=== PATIENT | male | born 1940 | race Caucasian/White ===

== ENCOUNTER 2016-06-24 09:39 | Inpatient (IN) ==
[2016-06-24] MEDS ORDERED: Regadenoson 0.4 MG/5 ML SYRINGE IVP ONE (10:22)
--- NOTE | 2016-06-24 12:52 | Nuclear Medicine Stress Report ---
Regadenoson Nuclear 2 Name: Sam Fair Date of Study: 06/24/2016 Date: 1940 Ht: 69.0 in Medical Record#: [id number] Age: 75 Wt: 145.0 lb Gender: Male Order #: [id number] Location: [facility] OP Room: Supervising Provider: Martha Herrera CNP Reading Physician: Blanca Gonzalez DO Ordering Physician: Darlin Lynch MD, [facility] Primary Care Physician: Mahendra Albert DO Stress Technologist: Hung Dumont CRT Stockbroking Dealer: Dashawn Tello Indications: Chest Pain Impression: Perfusion imaging was positive for infarct with moderate rachelle-infarct ischemia (see Findings below). Pharmacologic ECG was positive for ischemia associated with patient complaints of chest pain. Normal hemodynamic response to pharmacologic stress. No arrhythmias noted with stress. Gated EF = 38%. Abnormal wall motion. Borderline visual evidence of TID. Findings communicated to ordering physician. History: Hypertension Hypercholesteremia Stress Test Summary: Stress Test Type: Pharmacologic Baseline Information: Initial Heart Rate: 68 Blood Pressure: 138/82 Stress Information: Test Terminated Due to (primary): As per protocol Maximum Blood Pressure: 150/80 Maximum Heart Rate: 96 Percent Maximum Heart Rate Achieved: 65 Double Product: [id number] METS Reached: 1 Symptoms: Chest pain Nuclear Summary: SPECT myocardial perfusion imaging using Tc99m Sestamibi given intravenously was performed at rest and following cardiac stress testing. The resting images were obtained following initial dose of 10.2 mCi. Following stress an additional dose of 35.8 mCi was given at peak exercise or 30 seconds post regadenoson infusion. Medication Given: Time Medication Dose Units Route Findings: Stress Note * Resting ECG demonstrated normal sinus rhythm with nonspecific ST-T abnormalities. * No arrhythmias were noted during stress. * Patient had chest pain/pressure during stress. * At peak stress, there are 1-1.5mm of ST depression in II, 1mm ST depression in aVF, III, V4-[address] elevation in aVR only. Study Quality * Study quality was fair. Gated EF % * Gated EF = 38%. Abnormal wall motion and thickening in the anterolateral wall. Left Ventricle * The left ventricle is not dilated. TID * There is borderline visual transient ischemic dilatation. Lung Uptake * There is no evidence of increase lung uptake. PERFUSION * Resting perfusion demonstrates a medium sized mild to moderate intensity perfusion defect involving the basal to mid inferolateral and anterolateral tucker. * During stress, there is worsening of perfusion in these areas when compared to resting images also to include distal anterolateral and inferolateral wall and apex. * Findings represent infarct with moderate rachelle-infarct ischemia. Updated by Blanca Gonzalez on 06/24/2016 12:40:39 PM electronically signed on 06/24/2016 12:46:06 PM with status of Final
[2016-06-24] MEDS ORDERED: 0.9 % Sodium Chloride 1,000 ML ONE ×2 (14:15→15:45)
[2016-06-24] MEDS ORDERED: Nitroglycerin 1,000 MCG/10 ML VIAL IV ONE (14:15)
[2016-06-24] MEDS ORDERED: Heparin 1,000 UNITS/500 mL NS 500 ML ONE (14:15)
[2016-06-24] MEDS ORDERED: *HR* Heparin 10,000 UNIT/10 ML VIAL ONE (14:15)
--- NOTE | 2016-06-24 14:41 | History & Physical Report ---
Date of Encounter: 06/24/16 Time of Encounter: 13:30 24 Hour HP Update - Instructions Instructions: If the History and Physical is less than 30 days old and was completed prior to A.M. admission and or procedure and has NOT been updated on calendar day of procedure please complete this update prior to performing procedure. - Update Patient reports changes in Medical Condition: No Changes in examination, assessment, or condition: Yes Changes in Medication: No Preop tests/diagnostics Reviewed: Yes Additions to current History and Physical: Abnormal stress test
[2016-06-24] MEDS ORDERED: Naloxone 0.4 MG/ML INJ IVP PRN (14:47)
[2016-06-24 15:05] LABS: Basophils % 0.4 %; Eosinophils # 0.1 K/mcL (0.0-0.6); Eosinophils % 0.9 %; Hematocrit 38.8 % (37.5-50.1); Hemoglobin 12.9 g/dL (12.9-16.9); Immature Granulocytes % 0.4 % (0-4); Lymphocytes # 0.7 K/mcL (0.6-4.6); Lymphocytes % 11.8 %; Mean Corpuscular HGB Conc 33.2 g/dL (31.6-35.5); Mean Corpuscular Hemoglobin 31.9 pg (28.0-33.3); Mean Platelet Volume 9.5 fL (9.4-12.4); Monocytes # 0.4 K/mcL (0.0-1.3); Monocytes % 6.9 %; Neutrophils # 4.4 K/mcL (1.6-8.9); Platelet Count 170 K/mcL (140-400); Red Blood Count 4.04 M/mcL (4.19-5.50); Red Cell Distribution Width 13.5 % (11.5-14.5); Segmented Neutrophils % 79.6 %
[2016-06-24 15:17] LABS: BUN/Creatinine Ratio 33 (6-26); Blood Urea Nitrogen 33 mg/dL (8-26); Calcium 10.1 mg/dL (8.6-10.8); Carbon Dioxide 23 mEq/L (19-29); Chloride 106 mEq/L (98-109); Glucose 98 mg/dL (70-99); Osmolality,Calculated 295 (280-300); Potassium 4.3 mEq/L (3.5-4.5); Sodium 139 mEq/L (136-145); eGFR For African Americans > 60 (> 60); eGFR For Non-African Americans > 60 (> 60)
[2016-06-24 15:25] LABS: INR 1.1; Prothrombin Time 12.1 Seconds (9.4-12.1)
--- NOTE | 2016-06-24 15:29 | Pre-Sedation Evaluation ---
Pre-sedation evaluation - Pre-sedation checklist Date of procedure: 06/24/16 Procedure: C H&P (including ROS) documented in medical record: Yes Previous reaction to sedatives/anesthetics: No Dietary Status: NPO after Midnight Airway Assessment: Patient can open mouth completely, TMJ function normal, Micrognathia (under-bite, receding chin) absent, Neck with adequate range of motion Dentition: No loose teeth or bridges Possible difficult airway: No ASA Classification *see protocol: CLASS II-Mild systemic disease Plan of Care: Pt appropriate candidate for procedure/moderate/conscious sedation , Risks/benefits of procedure/sedation discussed w/ patient/family
[2016-06-24] MEDS ORDERED: *HR* FentaNYL (PF) 100 MCG/2 ML VIAL ONE (15:30)
[2016-06-24] MEDS ORDERED: *HR* Bivalirudin 250 MG VIAL IVC ONE (15:31)
[2016-06-24] MEDS ORDERED: *HR* Midazolam HCl 2 MG/2 ML VIAL ONE (15:32)
[2016-06-24] MEDS ORDERED: Nitroglycerin 0.4 MG TAB.SUBL SL PRN (16:38)
--- NOTE | 2016-06-24 17:20 | Cardiothoracic Consult Note ---
Date of Encounter: 06/24/16 Time of Encounter: 17:16 Assessment and Plan (1) Prostate cancer Current Visit: No Status: Acute The assessment and plan as outlined above was discussed with the patient and/or family members who expressed understanding and agreement. All questions were answered. 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 He is a candidate for coronary artery bypass surgery. We will obtain an echocardiogram to assess his valvular function. We will check a CT scan of his chest and abdomen to evaluate his aorta for aneurysms. We will check a carotid duplex to assess his risk of stroke. At this point the patient has no questions. We will tentatively schedule his surgery for Wednesday. - History of Present Illness History of present illness: Mr. Fair is a 75 year old male History of present illness. Patient is a 85-year-old gentleman who presented with a positive stress test. Ejection fraction on the stress test was 38%. He does state that he has been having some indigestion and heartburn. Heart catheterization done today reveals triple vessel disease. The right coronary artery is small and nondominant. The LAD has a 90% proximal lesion with some distal disease and is bypassable. The diagonal branch has diffuse distal disease and is too small for bypass distal to this. The circumflex has a 99% lesion and a good obtuse marginal branch. The distal circumflex may or may not be bypassable. Past medical history. The patient has a history of hypertension and hypercholesterolemia. No history of diabetes. He is status post bilateral inguinal hernia repair. He also has a history of prostate cancer and has undergone radiation and hormone therapy. Past medical history also includes abdominal aortic aneurysm which was last measured at 4.4 cm. He does have a long history of a heart murmur but no history of congestive heart failure. Social history. He lives with his [address] from [place]. 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 He continues to smoke one half pack of cigarettes per day AGAINST MEDICAL ADVICE. He states that he does not use oxygen and does not have dyspnea on exertion. Does not drink alcohol. Family history is positive for coronary artery disease, including a father who of heart failure. Review of systems is negative for stroke or TIA. Negative for saphenous vein varicosities or strippings. Past Med Surg Social Fam HX - Past Medical History Medical history: cancer, GERD, hyperlipidemia, hypertension Psychiatric history: no psych history - Social History Smoking Status: Current every day smoker Smokeless Tobacco Status: No Alcohol use: none Drug use: none Medications and Allergies Atorvastatin [Lipitor] 20 mg PO DAILY 02/14/15 [History] Lisinopril [Zestril] 40 mg PO DAILY 02/14/15 [History] Oxaprozin [Daypro] 600 mg PO BID PRN 02/14/15 [History] Solifenacin Succinate [Vesicare] 5 mg PO HS 11/21/15 [History] Tamsulosin [Flomax] 0.4 mg PO BID 11/21/15 [History] Diltiazem CD (24hr) [Cardizem CD] 240 mg PO DAILY 11/22/15 [History] Aspirin [Lo-Dose Aspirin EC] 1 tab PO DAILY 01/27/16 [History] Multivit-Min/FA/Lycopen/Lutein [Men 50 Plus Multivitamin Tab] 1 tab PO DAILY [History] Oxybutynin [Ditropan] 5 mg PO DAILY PRN #30 tablet 01/27/16 [Rx] Leuprolide Acetate [Lupron Depot] 22.5 mg IM ONCE #1 kit 04/28/16 [Rx] Allergies No Known Allergies Allergy (Verified 08/14/15 09:08) All Systems Review: A 10-system review of systems was performed and is negative for pertinent findings except as documented above in the HPI. Physical Examination Pupils are equal, round and reactive to light and accommodation. No oral lesions. Neck is supple. Trachea in the midline. No carotid bruits. Lungs are clear to percussion and auscultation. Heart is in a regular rate and rhythm. There is a 2/6 systolic murmur and a 1/6 diastolic murmur. Abdomen is benign. He is status post bilateral herniorrhaphy. No tenderness, rebound or guarding. No hepatosplenomegaly or masses. Extremities without edema. 1+ pulses. No saphenous vein varicosities or strippings. Cranial nerves, motor and sensory intact. He is awake, alert and oriented 3. Results 06/24/16 14:53 06/24/16 14:53 Lab Results, Last 24 hours 06/24/16 06/24/16 06/24/16 14:53 14:53 14:53 WBC 5.5 Hgb 12.9 Hct 38.8 Plt Count 170 INR 1.1 Sodium 139 Potassium 4.3 Chloride 106 Carbon Dioxide 23 BUN 33 H Creatinine 1.01 Glucose 98 Calcium 10.1 Consult Discharge Plan - Plan Referrals: Mahendra Albert DO [Primary Care Provider] -
--- NOTE | 2016-06-24 17:27 | Invasive Diagnostic Lab Proc ---
Name: Sam Fair Date of Study: 06/24/2016 Date: 1940 Ht: 66.0in Medical Record#: [id number] Age: 75 Wt: 145.28lb Gender: Male BSA: 1.75 Order #: [id number] BMI: 23.46 Physicians Procedure Physician: Darlin Lynch MD, [facility] Referring MD: Referring MD: Staff Name Position Time In Sites, [facility] RT (R) Monitor 03:47 PM Saima Perez RT Scrub 03:47 PM Zaida Wheat RN Box Person 03:47 PM Joseline Olvera RN Box Person 03:47 PM Indications Indication Abnormal Test - Stress Procedures Performed Procedure L HRT ARTERY/VENTRICLE ANGIO Pre-Procedure Checklist Informed consent is complete signed and on chart. H\\T\\P is on chart. ID band is on and ID verified with patient. Patient NPO for procedure The procedure was described for the patient and questions were answered. Blood Pressure: 167/96 ECG is on chart. Rhythm: NSR Plan of Care Patient will tolerate the procedure without complications. Adequate level of comfort will be maintained. Hemodynamics will remain stable Patient will recover from procedure without complications. Respiratory function will be maintained. Cardiac rhythm will remain stable. Patient temperature will be maintained. Patient and/or family have verbalized understanding of the procedure. Patient Education Chief Complaint/Reason for Test: Cardiac Cath Developmental Category: Geriatric (65+ years) Developmentally Appropriate for Age: Yes Learning Barriers: None Education Needs: Procedure Education Method: Verbal Information Taught: Cardiac Cath Educational Evaluation: Able to repeat information Intravenous Access Time IV Size Location DC'd Fluid/Drip Rate Units RN 03:23 PM 22g 1" Patent On Arrival Rt Arm 0.9NaCl 25 ml/hr Joseline Olvera RN Allergies No Known Allergies Vital Signs Time BP (mmHg) HR (bpm) O2 Sat. RR (bpm) LOC 03:48 PM / % 5 = Fully awake and oriented or at pre-proc level 03:48 PM / % 4 = Oriented but drowsy 03:43 PM 167 / 96 65 100 % 16 03:47 PM 160 / 97 71 100 % 7 03:52 PM 159 / 89 66 99 % 0 03:57 PM 157 / 94 73 99 % 14 04:02 PM 149 / 89 73 99 % 19 04:07 PM 154 / 88 65 99 % 10 04:03 PM / % 5 = Fully awake and oriented or at pre-proc level 04:30 PM 178 / 97 64 96 % 25 4 = Oriented but drowsy 04:45 PM 166 / 108 64 95 % 17 5 = Fully awake and oriented or at pre-proc level 05:00 PM 168 / 107 61 96 % 23 5 = Fully awake and oriented or at pre-proc level 05:15 PM 176 / 95 65 98 % 19 5 = Fully awake and oriented or at pre-proc level Procedural Medications Time Medication Dose Units Method Given By 03:47 PM Oxygen 2 L/min nasal cannula Zaida Wheat RN 03:47 PM Versed 2 mg Intravenous Zaida Wheat RN 03:47 PM Fentanyl 50 mcg Intravenous Zaida Wheat RN 03:54 PM Lidocaine 2% 12 ml Subcutaneous Darlin Lynch MD, [facility] ASA Classification: CLASS II- Mild systemic disease (i.e. well-controlled diabetes, hypertension, asthma, cigarette smoking) Zach Score Preprocedure Postprocedure Activity 2- Moves 4 extremities sustained head lift Activity 2- Moves 4 extremities sustained head lift Circulation 2- SBP +/= 20 points of pre-anesthetic level Circulation 2- SBP +/= 20 points of pre-anesthetic level Consciousness 2- Awake and alert oriented x 3 Consciousness 2- Awake and alert oriented x 3 O2 Saturation 2- Able to maintain O2 satruation of 92% on room air O2 Saturation 2- Able to maintain O2 satruation of 92% on room air Respiratory 2- Able to deep breathe and cough well Respiratory 2- Able to deep breathe and cough well Total Score 10 Total Score 10 Contrast Agent: Isovue Diagnostic Contrast: 85 ml Total Contrast: 85 ml Fluoro Dose: 353 mGy Procedure Log Time Note Enter By 03:42 PM CathStat 03:42 PM Vitals capture started with the following parameters, Patient=Adult, Interval=5 min, Initial Ddywstfn=968 mmHg, Deflation Rate=5 mmHg, Cuff placed on Left Arm 03:42 PM Recorded ECG: HR=62 Condition=Condition 1 03:43 PM HR=65 bpm, ZKIB=016/96 mmhg, TjS8=247.0 %, Resp=16 B/min 03:45 PM Recorded ECG: HR=64 Condition=Condition 1 03:46 PM Pt arrived to slab off mill tender 2 at 15:46 tsites 03:46 PM Patient charges- Angio tray pack, Navilyst 3mm J, Pulse Oximetry and ACIST tubing and transducer tsites 03:46 PM Case Delayed No tsites 03:46 PM Physician arrived 15:46 tsites 03:46 PM Meet and greet completed tsites 03:46 PM Sign in performed according to hospital policy. tsites 03:46 PM Procedure start 15:46 tsites 03:47 PM Ayesha Valdivia RT (R) Position: Monitor Time in: 15:47 tsites 03:47 PM Saima Perez RT Position: Scrub Time in: 15:47 tsites 03:47 PM Zaida Wheat RN Position: Box Person Time in: 15:47 tsites 03:47 PM Joseline Olvera RN Position: Box Person Time in: 15:47 tsites 03:47 PM HR=71 bpm, CVDV=638/97 mmhg, YrO8=692.0 %, Resp=7 B/min 03:47 PM Time: 15:47 Oxygen on at 2 L/min per nasal cannula by Zaida Wheat RN tsites 03:47 PM Time: 15:47 Versed 2 mg Intravenous Given by Zaida Wheat RN tsites 03:48 PM Time: 15:47 Fentanyl 50 mcg Intravenous Given by Zaida Wheat RN tsites 03:48 PM Time: 15:48 Patient comfortable and pain free: Yes tsites 03:48 PM Time: 15:48LOC: 5 = Fully awake and oriented or at pre-proc level tsites 03:48 PM Clinical Presentation: Unstable angina tsites 03:52 PM Pressure channel 1 zero failed. 03:52 PM Pressure channel 1 zeroed. 03:52 PM HR=66 bpm, IOMH=724/89 mmhg, SpO2=99.0 %, Resp=0 B/min 03:54 PM Time out performed according to hospital policy tsites 03:55 PM Time: 15:54 12 ml Lidocaine 2% to right groin Subcutaneous Given by Darlin Lynch MD, [facility] tsites 03:56 PM Access obtained by percutaneous puncture. 5Fr 10cm Terumo [place] sheath placed in right Femoral artery. [id number] tsites 03:57 PM 5Fr FR 4 catheter inserted over the wire [employer] tsites 03:57 PM 0.035 145cm Navilyst 3mmJ wire [id number] tsites 03:57 PM HR=73 bpm, LZEE=049/94 mmhg, SpO2=99.0 %, Resp=14 B/min 03:59 PM RCA angiography performed in multiple views. tsites 03:59 PM Recorded Pressure: Ao, HR=67, Condition=Condition 1 (Aorta) Ao 152/97/120 03:59 PM 0.035 260cm Navilyst 3mmJ wire [id number] tsites 04:00 PM Catheter removed tsites 04:00 PM 5Fr FL 4 catheter inserted over the wire [employer] tsites 04:01 PM wire reinserted catheter removed tsites 04:02 PM 5Fr FL5 catheter inserted over the wire [id number] tsites 04:02 PM HR=73 bpm, OBTI=863/89 mmhg, SpO2=99 %, Resp=19 B/min 04:03 PM Time: 15:48LOC: 4 = Oriented but drowsy tsites 04:03 PM Time: 15:48 Patient comfortable and pain free: Yes tsites 04:03 PM LCA angiography performed in multiple views. tsites 04:03 PM Recorded Pressure: Ao, HR=68, Condition=Condition 1 (Aorta) Ao 136/82/103 04:05 PM wire [facility]ed [facility] 04:06 PM 5Fr Pigtail catheter inserted over the wire [employer] [facility] 04:06 PM Catheter selectively placed in left ventricle tsites 04:07 PM Pressure channel 1 zeroed. 04:07 PM Recorded Pressure: LV, HR=66, Condition=Condition 1 (Left Ventricle) LV 137/11/12 04:07 PM Bolus angiogram of left Ventricle complete: 8 ml/sec for a total of 24 mls tsites 04:07 PM HR=65 bpm, ZMLW=724/88 mmhg, SpO2=99.0 %, Resp=10 B/min 04:08 PM Recorded Pressure: LV, Ao, HR=66, Condition=Condition 1 (Left Ventricle) LV 135/15/16, (Aorta) Ao 139/82/110 04:08 PM wire reinserted catheter removed tsites 04:09 PM Bolus angiogram of right Femoral complete: 2 ml/sec for a total of 4 mls tsites 04:09 PM Procedure completed at 16:09 [facility] 04:11 PM Cardiothoracic surgeon consulted by physician tsites 04:11 PM Sign out completed: Radiation Dose 353 mGy Fluoro Time: 3.9 Isovue 370 - 500ml contrast 85 ml given by Darlin Lynch MD, [facility]. Complications: NoneCardiac Rehab Consult needed: YesConfirmed administered medications: Yes tsites 04:11 PM Isovue 370 - 500ml,1 Bottle(s) used. tsites 04:12 PM Arterial sheath pulled, Mynx closure device used and was Successful S/N. tsites 04:12 PM Post ECG NSR tsites 04:14 PM Vitals capture stopped. 04:14 PM Post Blood Pressure 154/88 tsites 04:14 PM 16:14 Post Pulses Bilateral DP \\T\\ PT 2+ tsites 04:14 PM Information taught Cardiac Cath and Mynx tsites 04:14 PM Education needs Procedure, Plan of Care, and Responsibilities of Patient in Care tsites 04:18 PM Time: 16:03 Patient comfortable and pain free: Yes tsites 04:18 PM Time: 16:03LOC: 5 = Fully awake and oriented or at pre-proc level tsites 04:24 PM Learning barriers :None tsites 04:25 PM Education Methods Verbal tsites 04:25 PM Education evaluation Able to repeat information tsites 04:25 PM Site status No bleeding/hematoma - Rt Groin as reported by Saima Perez RT at 16:25 tsites 04:25 PM Opsite applied tsites 04:25 PM Delay to floor Bed availability tsites 04:25 PM Family placed in consult room. tsites 04:30 PM received patient to holding area room 1. awaiting bed. monitors applied and tray ordered. at bedside. [email or web address] 04:32 PM Report given to rodrigo QUINN Pt taken to Holding room Room #3. 16:32 tsites 04:32 PM Patient out of room: 16:32 tsites 04:33 PM Coronary Dominance: Left tsites 04:33 PM Lesion found in Proximal RCA. Pre Stenosis: 50 Pre JYOTI Flow: tsites 04:33 PM Lesion found in Proximal LAD. Pre Stenosis: 80 Pre JYOTI Flow: tsites 04:35 PM Lesion found in Mid LAD. Pre Stenosis: 99 Pre JYOTI Flow: tsites 04:35 PM Lesion found in Distal LAD. Pre Stenosis: 90 Pre JYOTI Flow: tsites 04:35 PM Lesion found in 1st Diagonal. Pre Stenosis: 99 Pre JYOTI Flow: tsites 04:35 PM Lesion found in Proximal Circumflex. Pre Stenosis: 99 Pre JYOTI Flow: tsites 04:35 PM Lesion found in Mid Circumflex. Pre Stenosis: 99 Pre JYOTI Flow: tsites 04:35 PM Lesion found in Distal Circumflex. Pre Stenosis: 99 Pre JYOTI Flow: tsites 04:36 PM Lesion found in 1st Marginal. Pre Stenosis: 100 Pre JYOTI Flow: tsites 04:36 PM Lesion found in 2nd Marginal. Pre Stenosis: 99 Pre JYOTI Flow: tsites 04:36 PM Proximal Left Anterior Descending Coronary Artery with 80% stenosis. If graft is supplying this territory, 0 % stenosis. tsites 04:36 PM Mid/Distal Left Anterior Descending Coronary Artery and diagonal branches with 99% stenosis. If graft is supplying this area, 0 % stenosis tsites 04:36 PM Circumflex, Obtuse Marginal, Left Posterior Descending, and Left Posterolateral Coronary Arteries with 100 % stenosis. If graft is supplying this area, 0 % stenosis tsites 04:36 PM Right Coronary, Right Posterior Descending Arteries with Right Posterolateral and Acute Marginal branches with 50 % stenosis. If graft is supplying this area, 0 % stenosis tsites 05:[address] verma at bedside [email or web address] 05:21 PM Pt taken to E Room #18. 17:20 [email or web address] Complications Complication None Hemodynamics Pressures Site Systolic/A Wave Diastolic/V Wave Mean AO 152 97 120 AO 136 82 103 LV 137 11 12 LV 135 15 16 AO 139 82 110 Post Procedure Information Blood Pressure: 154/88 mmHg Rhythm: NSR Post procedural instructions were given Surgery consult for CABG Closure Device Time Device Success/Fail 06/24/2016 4:33:00 PM MynxGrip Successful Site Checks Time Location Status Staff Sheath In? Note 04:25 PM Rt Groin No bleeding/hematoma Saima Perez RT 04:30 PM Rt Groin No bleeding/ No Hematoma Zaida Wheat RN 04:45 PM Rt Groin No bleeding/ No Hematoma Zaida Wheat RN 05:00 PM Rt Groin No bleeding/ No Hematoma Zaida Wheat RN 05:15 PM Rt Groin No bleeding/ No Hematoma Joseline Olvera RN Pulses Time Site Pre-Procedure Post-Procedure Note 06/24/2016 3:24:00 PM Bilateral DP \\T\\ PT 2+ 06/24/2016 3:24:00 PM Bilateral radial 2+ 4:14:00 PM Bilateral DP \\T\\ PT 2+ 06/24/2016 4:30:00 PM Bilateral DP \\T\\ PT 2+ 06/24/2016 4:45:00 PM Bilateral DP \\T\\ PT 2+ 06/24/2016 5:00:00 PM Bilateral DP \\T\\ PT 2+ 06/24/2016 5:15:00 PM Bilateral DP \\T\\ PT 2+ Updated by Joseline Olvera RN on 06/24/2016 5:21:20 PM electronically signed on 06/24/2016 5:21:57 PM with status of Final
--- NOTE | 2016-06-24 18:00 | Invasive Diagnostic Lab ---
Name: Sam Fair Date of Study: 06/24/2016 Date: 1940 Ht: 167.6 cm /66.0 in Medical Record#: [id number] Age: 75 Wt: 65.9 kg / 145.28 lb Account/Order#: [id number] Gender: Male BSA: 1.75 Order #: [id number] Fluoro Dose: 353 mGy BMI: 23.46 Procedure Physician: Darlin Lynch MD, [facility] Referring MD: Referring MD: Procedures Performed: LEFT HEART CATH Indications: Abnormal Test - Stress Impressions: There is severe three vessel coronary artery disease. Mild global/segmental LV dysfunction. Recommendations: Optimal medical therapy of patient's disease. Aggressive risk factor modification. Evaluate for CABG. History/Risk Factors: GERD Hypertension Dyslipidemia Current/Recent Smoker Procedure Access obtained in the right Femoral artery by percutaneous puncture Complications: None Contrast: Isovue 85ml Closure Device: MynxGrip Hemodynamics: Pressures Site Systolic/ A Wave Diastolic/ V Wave End Diastolic/ Mean HR AO 152 97 120 67 AO 136 82 103 68 LV 137 11 12 66 LV 135 15 16 65 AO 139 82 110 68 LV Ventriculography Ejection Method: LV Gram 45% Wall Motion: HANSEN Anterobasal Normal Anterolateral Moderate Hypokinesis Apical: Mild Hypokinesis Inferoapical Moderate Hypokinesis Inferobasal Normal Coronary Dominance: Left Lesion Findings/Interventions * Left Main Coronary Artery The LMCA is absent- separate ostia for LAD, Cx. * Left Anterior Descending There is a 80% stenosis in the Proximal LAD. There is a 99% stenosis in the Mid LAD- diffusely diseased, long segment There is a 90% stenosis in the Distal LAD. There is a 99% stenosis in the 1st Diagonal. * Circumflex There is a 99% stenosis in the Proximal Circumflex. There is a 99% stenosis in the Mid Circumflex. There is a 99% stenosis in the Distal Circumflex. There is a 100% stenosis in the 1st Marginal. The lesion has collaterals which feed from left to left. There is a 99% stenosis in the 2nd Marginal. * Right Coronary Artery The Right Coronary Artery is small and non-dominant. There is a 50% stenosis in the Proximal RCA. Updated by [facility], RT (R) on 06/24/2016 4:40:07 PM Darlin Lynch MD, FACC electronically signed on 06/24/2016 5:57:12 PM with status of Final
[2016-06-24] MEDS: Isosorbide MONOnitrate (24 HR) 30 MG TAB.ER.24H PO SCH (18:05)
[2016-06-24] MEDS ORDERED: SOLIFENACIN SUCCINATE 5 MG PO SCH (21:00)
[2016-06-25 01:15] LABS: Basophils % 0.2 %; Eosinophils # 0.1 K/mcL (0.0-0.6); Eosinophils % 1.9 %; Hematocrit 33.5 % (37.5-50.1); Immature Granulocytes % 0.2 % (0-4); Lymphocytes # 0.7 K/mcL (0.6-4.6); Lymphocytes % 15.4 %; Mean Corpuscular HGB Conc 33.4 g/dL (31.6-35.5); Mean Corpuscular Volume 95.7 fL (83.0-100.0); Mean Platelet Volume 9.8 fL (9.4-12.4); Monocytes # 0.5 K/mcL (0.0-1.3); Monocytes % 11.4 %; Platelet Count 147 K/mcL (140-400); Red Cell Distribution Width 13.4 % (11.5-14.5); Segmented Neutrophils % 70.9 %
[2016-06-25 01:16] LABS: Hemoglobin 11.2 g/dL (12.9-16.9)
[2016-06-25 01:24] LABS: INR 1.2; Prothrombin Time 12.5 Seconds (9.4-12.1)
[2016-06-25 01:26] LABS: Activated Partial Thrombo Time 28.4 Seconds (26.0-36.0)
[2016-06-25 02:02] LABS: BUN/Creatinine Ratio 34 (6-26); Blood Urea Nitrogen 32 mg/dL (8-26); Calcium 9.3 mg/dL (8.6-10.8); Carbon Dioxide 21 mEq/L (19-29); Chloride 106 mEq/L (98-109); Glucose 91 mg/dL (70-99); Osmolality,Calculated 290 (280-300); Potassium 3.9 mEq/L (3.5-4.5); Sodium 137 mEq/L (136-145); eGFR For African Americans > 60 (> 60); eGFR For Non-African Americans > 60 (> 60)
--- NOTE | 2016-06-25 08:34 | Cardiothoracic Progress Note ---
Date of Encounter: 06/25/16 Time of Encounter: 08:32 - Assessment and plan (1) Prostate cancer Current Visit: No Status: Acute The patient is scheduled for testing today and scheduled for the OR for tomorrow. Operative consent was obtained. Risks of surgery include , infection, stroke, bleeding, myocardial infarction, clots around the heart, renal or respiratory failure, acute or chronic graft closure, phrenic nerve injury and sternal dehiscence. The procedure, its risks benefits and alternatives were explained and he wishes to proceed. He and his have no questions. - Subjective Interval history: The patient has no history of angina and no complaints. Vital Signs, Last 4 Hours Temp Pulse Resp BP 06/25/16 07:07 98.5 F 65 16 164/90 Clinical Data, last 8 Hours Output, Urine Amount 150 Output, Urine Amount 200 Output, Urine Amount 100 Weight 06/23/16 06/24/16 06/25/16 23:59 23:59 23:59 Weight 69.3 kg 70.8 kg Lungs are clear to percussion and auscultation. Heart is in a normal sinus rhythm. Chest x-ray reveals no acute disease. - Labs 06/25/16 00:55 06/25/16 00:55 Lab Results, Last 24 hours 06/24/16 06/24/16 06/24/16 14:53 14:53 14:53 WBC 5.5 Hgb 12.9 Hct 38.8 Plt Count 170 INR 1.1 APTT Sodium 139 Potassium 4.3 Chloride 106 Carbon Dioxide 23 BUN 33 H Creatinine 1.01 Glucose 98 Calcium 10.1 06/25/16 06/25/16 06/25/16 00:55 00:55 00:55 WBC 4.2 L Hgb 11.2 L D Hct 33.5 L Plt Count 147 INR 1.2 APTT 28.4 Sodium 137 Potassium 3.9 Chloride 106 Carbon Dioxide 21 BUN 32 H Creatinine 0.94 Glucose 91 Calcium 9.3 Consult Discharge Plan - Plan Referrals: Mahendra Albert DO [Primary Care Provider] -
[2016-06-25] MEDS ORDERED: ceFAZolin 2,000 MG in D5% in Water 100 ML IVPB ONE (08:36)
[2016-06-25] MEDS: Aspirin Enteric Coated 81 MG Tablet PO SCH (08:39)
[2016-06-25] MEDS: Isosorbide MONOnitrate (24 HR) 30 MG TAB.ER.24H PO SCH (08:45)
[2016-06-25] MEDS ORDERED: Lisinopril 20 MG TABLET PO SCH (09:00)
[2016-06-25] MEDS ORDERED: Diltiazem CD (24hr) 240 MG CAPSULE PO SCH (09:00)
[2016-06-25] MEDS ORDERED: *HR* Enoxaparin 40 MG/0.4 ML SYRINGE SQ SCH (09:00)
[2016-06-25] MEDS ORDERED: Chlorhexidine Rinse 15 ML MOUTHWASH MM SCH (09:00)
[2016-06-25] MEDS ORDERED: Multivit/Ca/Min/Fe/FA 1 TAB TABLET PO SCH (09:00)
--- NOTE | 2016-06-25 09:42 | Anesthesia Evaluation PreOp ---
Date of Encounter: 06/26/16 Time of Encounter: 07:24 - Past History Planned Operation: CABG Cardiac History: Angina, HTN, Hyperlipidemia Pulmonary History: Smoker, Pack/yr (30pk/yr Continues to smoke) COMPOUND SPECIALIST History: Denies Any Significant HX Other Medical History: GERD, Other (Prostate cancer treated with hormone therapy and XRT) Anesthesia History: No Prior Anesthetic Complications, Past Anesthesia (Green light laser and bilateral hernia repair) Alcohol Use: none Drug use: none Medications and Allergies Lisinopril [Zestril] 40 mg PO DAILY 02/14/15 [History] Oxaprozin [Daypro] 600 mg PO BID PRN 02/14/15 [History] Tamsulosin [Flomax] 0.4 mg PO DAILY 11/21/15 [History] Diltiazem CD (24hr) [Cardizem CD] 240 mg PO DAILY 11/22/15 [History] Aspirin [Lo-Dose Aspirin EC] 81 mg PO DAILY 01/27/16 [History] Multivit-Min/FA/Lycopen/Lutein [Men 50 Plus Multivitamin Tab] 1 tab PO DAILY [History] Oxybutynin [Ditropan] 5 mg PO DAILY PRN #30 tablet 01/27/16 [Rx] Ascorbate Calcium [Vitamin C] 1,000 mg PO DAILY 06/24/16 [History] Atorvastatin Calcium [Lipitor] 20 mg PO HS 06/24/16 [History] Vitamin A 10,000 unit PO DAILY 06/24/16 [History] Vitamin E 100 unit PO DAILY 06/24/16 [History] Allergies No Known Allergies Allergy (Verified 08/14/15 09:08) - Meds/Allergy Pre-op Review Medications Reviewed: Yes Allergies Reviewed: Yes Beta Blockers on Current Med List: Yes If Beta Blockers taken, Date/Time (Last Dose taken): 06/26 @ 0558 Anesthesia Results - Labs 06/25/16 00:55 06/25/16 00:55 - Imaging Additional studies: positive stress test with EF38% Cath shows severe 3 vessel disease with mild global LV dysfunction Anesthesia Exam Selected Entries 06/25/16 07:07 06/25/16 08:36 Pulse Rate 65 Respiratory Rate 16 Blood Pressure 164/90 O2 Sat by Pulse Oximetry 97 Height: 66in Weight: 145lbs (66kg) Pain Scale: 0 Pain Scale Used: Numeric (1 - 10) - HEENT Pupil (Motor): EOMI Mallampati: II Teeth: Edentulous Oral Opening: Greater than 3 - COMPOUND SPECIALIST LOC: Oriented COMPOUND SPECIALIST Motor: Normal RUE, Normal LUE, Normal RLE, Normal LLE, Normal Face COMPOUND SPECIALIST Sensory: Normal: RUE, LUE, RLE, LLE, Face - Cardiac Rhythm: Regular Murmur: Systolic JVD: No Carotid Bruit: No - Pulmonary Breath Sounds: bilateral Clear Respiratory Effort: Symmetrical Anesthesia Assess/Plan ASA Score: 4 Modified Martell Scale for Level of Consciousness: Cooperative, oriented, and tranquil Anesthetic Plan: General Monitoring Plan: Standard Monitors, A-Line, PAC, SOCORRO Recovery Plan: ICU (Discussed risks of GA, lines, SOCORRO and blood products. Questions answered and agrees tpo proceed.)
[2016-06-25 11:31] LABS: Hemoglobin A1C 5.8 %
--- NOTE | 2016-06-25 14:32 | Cardiology Progress Note ---
Date of Encounter: 06/25/16 Time of Encounter: 14:00 Assessment and Plan (1) Abnormal stress test Current Visit: Yes Status: Acute Per cardiology: -Patient noted to have abnormal stress test 06/25/16 with EF 38%, medium sized mild to moderate intensity perfusion defect involving basal to mid inferolateral and anterolateral tucker, distal anterolateral, inferolateral, and apex. -Patient was directly admitted for C, see below. (FERNANDO) (2) CAD (coronary artery disease) Current Visit: Yes Status: Acute Per cardiology: -Abnormal stress test 06/25/16 -LHC with 80%proximal LAD, 99% mid LAD, 90% distal LAD, 99% diagonal 1, 99% proximal circumflex, 99% mid circumflex, 99% distal circumflex, 100% OM 1 with left to left collaterals, 99% OM 2, 50% proximal RCA. -Patient is scheduled for CABG tomorrow with . Patient has been seen and evaluated by CT surgery. -Patient on asa, beta raul, statin, and imdur. -Echo pending, -Patient was still smoking prior to admission. -Patient will undergoe CABG tomorrow. Cardiology will follow up in outpatient setting. Follow up set. All questions answered. Patient and family state understanding and agree with plan. (FERNANDO) Qualifiers: Coronary Disease-Associated Artery/Lesion type: [place] artery [place] vs. transplanted heart: [place] heart Associated angina: with unspecified angina Qualified Code(s): I25.119 - Atherosclerotic heart disease of [place] coronary artery with unspecified angina pectoris (3) Hypertension Current Visit: Yes Status: Acute Per cardiology: -Known history of hypertension. -BP 150-160s systolic. -On beta raul. -Further management per CT surgery post CABG. (FERNANDO) Qualifiers: Qualified Code(s): I10 - Essential (primary) hypertension (4) Aneurysm, ascending aorta Current Visit: Yes Status: Acute Per Cardiology: CT showed ascending thoracic "44mm x 45mm". Of note has AAA measuring 47mm x44mm infrarenal aneurysm (known hx of AAA). (5) Tobacco abuse Current Visit: Yes Status: Chronic Per cardiology: -Known history of tobacco abuse. -I spent 3-5 minutes reviewing smoking cessation with patient. (FERNANDO) Discussion w patient/family: The assessment and plan as outlined above was discussed with the patient and/or family members who expressed understanding and agreement. All questions were answered. Thank you for involving us in the care of your patient. Please call with any questions. Patient seen and examined with WES Ku Discussed and reviewed with . Subjective Principal diagnosis: abnormal stress test Interval history: was directly admitted yesterday from stress testing lab. Patient was noted to have abnormal stress test. Patient underwent LHC yesterday and was noted to have severe CAD. Patient has been seen and evaluated by CT surgery. Patient is scheduled for CABG tomorrow, pending test results. Patient denied chest pain, shortness of breath. (FERNANDO) Objective Vital Signs, Last 4 Hours Temp Pulse Resp BP 06/25/16 11:42 97.8 F 66 16 124/83 General: Conversant, No Apparent Distress HEENT: Atraumatic, Normocephaly, Mucus Membranes Moist Neck: No JVD, Normal carotid pulses Cardiac: Reg Rate and Rhythm, Normal S1 and S2, No Murmur Lungs: Normal Breath Sounds, No Wheeze, Rales, Rhonchi Neuro: Alert and responsive, No focal deficits noted Abdomen: Soft, Non-Tender Skin: No rashes noted on visualized skin, Other (Right groin access site without hematoma. Slight ecchymosis noted. ) Musculoskeletal: No Chest Wall Tenderness Extremities: No Clubbing, No Cyanosis, No Edema, Normal Pulses Results 06/25/16 00:55 06/25/16 00:55 Lab Results Impressions Abdomen CT 06/24/16 16:34 IMPRESSION: 47 mm aneurysm of the abdominal aorta. Six-month follow-up and vascular surgery consultation is recommended. Detailed abdominal aortic management guidelines are inserted below for reference. No acute inflammatory abnormality is identified. Managing Abdominal Aortic Aneurysms 2.6-2.9 cm: 5 year follow up. 3.0-3.4 cm: 3 year follow up 3.5-3.9 cm: 1 year follow up. 4.0-4.4 cm: 1 year follow up. Recommend vascular consultation. 4.5-5.4 cm: 6 month follow up. Recommend vascular consultation. Greater than or equal to 5.5 cm: Referral to vascular surgeon. Reference: Eligio et al. The care of patients with an abdominal aortic aneurysm: The Society of Vascular Surgery practice guidelines. Journal of Vascular Surgery. Vol 50, Number 85. Christopher et al. Managing Incidental Findings on Abdominal and Pelvic CT and MRI, Part 2: White Paper of the ACR Incidental Findings Committee II on Vascular Findings. J Am Jonah Radiol 2013;10:789-794 D/ / Zana Sauer MD / Zana Sauer MD Interpreting Provider: Zana Sauer MD Chest CT 06/24/16 16:34 IMPRESSION: 45 mm aneurysm of the ascending thoracic aorta. There is also a moderate amount of calcification. Dependent opacities in the lower lobes, likely combination of fibrosis and atelectasis. Pneumonia is considered less likely. Moderately advanced pattern of emphysema. D/ / Zana Sauer MD / Zana Sauer MD Interpreting Provider: Zana Sauer MD Chest X-Ray 06/25/16 00:01 IMPRESSION: No acute disease is identified. Bibasilar atelectasis or fibrosis noted on recent CT chest is not apparent on the x-ray. D/ / Zana Sauer MD / Zana Sauer MD Interpreting Provider: Zana Sauer MD Chest X-Ray 06/25/16 08:36 IMPRESSION: Stable chest examination. No focal consolidation. D/ / Elvira Edwards MD / Elvira Edwards MD Interpreting Provider: Elvira Edwards MD Active Medications Aspirin (Aspirin Ec) 81 mg PO DAILY BOYD Stop: 12/25/16 09:01 Last Admin: 06/25/16 08:39 Dose: 81 mg Atorvastatin Calcium (Lipitor) 80 mg PO HS BOYD Stop: 12/24/16 21:01 Last Admin: 06/24/16 20:40 Dose: 80 mg Carvedilol (Coreg) 6.25 mg PO BIDWM BOYD PRN Reason: Protocol Stop: 12/24/16 17:01 Last Admin: 06/25/16 08:39 Dose: 6.25 mg Chlorhexidine Gluconate (Chlorhexidine Rinse) 15 ml MM BID [facility] Stop: 06/25/16 21:01 Isosorbide Mononitrate (Imdur) 30 mg PO DAILY [facility] Stop: 12/24/16 16:46 Last Admin: 06/25/16 08:45 Dose: 30 mg Multivitamins/Calcium (Thera M Plus) 1 tab PO DAILY [facility] Stop: 12/25/16 09:01 Last Admin: 06/25/16 08:39 Dose: 1 tab Naloxone HCl (Narcan) 0.4 mg IVP Q2MIN PRN PRN Reason: Opioid Reversal Stop: 12/24/16 14:48 Nitroglycerin (Nitroglycerin) 0.4 mg SL Q5MIN PRN PRN Reason: Chest Pain Stop: 12/24/16 16:39 Oxybutynin Chloride (Ditropan) 5 mg PO BID [facility] PRN Reason: Protocol Stop: 12/24/16 21:01 Last Admin: 06/25/16 08:38 Dose: 5 mg Oxybutynin Chloride (Ditropan) 5 mg PO DAILY PRN; Protocol PRN Reason: Bladder Spasms Stop: 12/25/16 09:01 Tamsulosin HCl (Flomax) 0.4 mg PO BID [facility] PRN Reason: Protocol Stop: 12/24/16 21:01 Last Admin: 06/25/16 08:40 Dose: 0.4 mg Laboratory Tests 06/25/16 06/25/16 06/25/16 00:55 00:55 08:59 WBC 4.2 L RBC 3.50 L Hgb 11.2 L D Hct 33.5 L Creatinine 0.94 Triglycerides 174 H Cholesterol 162 LDL Cholesterol, Calc 100 H HDL Cholesterol 27 L - Imaging and Cardiology Chest Xray: report reviewed Stress Test: report reviewed Echo: pending Cardiac cath: report reviewed Other Results: CT chest and CT abdomen report reviewed. - EKG Interpretation EKG results cardiology: other (Telemetry reviewed with average HR 63, sinus rhythm. PACs noted.) Consult Discharge Plan - Plan Referrals: Mahendra Albert DO [Primary Care Provider] -
--- NOTE | 2016-06-25 15:08 | ECHO - Doppler Report ---
Echocardiogram Name: Sam Fair Date of Study: 06/25/2016 Date: 1940 Ht: 69.0 in Medical Record#: [id number] Age: 75 Wt: 156.0 lb Gender: Male BSA: 1.86 Order #: [id number] Location: [facility] Room #: [id number] Reading Physician: Mahendra Benavides MD, [facility] Instrument Checker: Beth Johnson RDCS, RVT Ordering Physician: Martha Herrera CNP Primary Physician: [facility] Indications: Coronary artery disease Impressions: Mild LV systolic dysfunction, LVEF 40-45%. There are regional wall motion abnormalities, see diagram below. Atypical ventricular septum motion of uncertain etiology. Mild asymmetric LV septal hypertrophy. No evidence of LVOT obstruction. Mild left ventricular diastolic dysfunction. Normal right ventricular size and function. Mildly dilated left atrium. Mild aortic regurgitation. Mild mitral regurgitation. No evidence of pulmonary hypertension. Left Ventricular Wall Motion: Rest Echo Findings The apical inferior, mid inferior, basal inferior, mid inferior lateral and basal inferior lateral tucker were hypokinetic. All other wall segments showed normal motion. Findings: Study Quality * Suboptimal echo windows. Sinus rhythm and sinus bradycardia. ECG Findings * Normal sinus rhythm. Left Ventricle * Mild LV systolic dysfunction, LVEF 40-45%. There are regional wall motion abnormalities, see diagram below. * Atypical ventricular septum motion of uncertain etiology. * Mild asymmetric LV septal hypertrophy. No evidence of LVOT obstruction. * Mild left ventricular diastolic dysfunction. Right Ventricle * Normal right ventricular size and function. Left Atrium * Mildly dilated left atrium. Right Atrium * Normal right atrial size. Aorta * Normally sized aortic root. Pericardium * There is no pericardial effusion present. IVC * The IVC is not dilated. Aortic Valve * Trileaflet aortic valve. * Mildly sclerotic aortic valve leaflets. * No aortic stenosis. * Mild aortic regurgitation. Mitral Valve * Normal mitral valve structure. * No mitral stenosis. * Mild mitral regurgitation. Tricuspid Valve * Normal tricuspid valve structure. * No tricuspid stenosis. * Trace tricuspid regurgitation. * No evidence of pulmonary hypertension. Pulmonic Valve * Pulmonic valve not well visualized. * No pulmonic stenosis. * No pulmonic regurgitation. History Hypertension Hypercholesteremia Rheumatic Fever Measurements: BP: 124/ 83 2D Normal Values RVIDd: 3.60 cm IVSd: 1.30 cm 0.6 - 1.0 cm LVIDd: 5.10 cm 3.7 - 5.6 cm LVPWd: .80 cm 0.6 - 1.1 cm LVIDs: 4.10 cm 1.5 - 3.6 cm AO: 3.80 cm < 4.0 cm %FS: 19.60 cm >25 % LA volume: 68 Mitral Valve Peak E:.32 m/sec Peak A:.68 m/sec E/A Ratio:0.5 Tricuspid Valve TV Regurg Peak Grad: 18.00mmHg TV Regurg Peak Taco: 2.12m/sec Updated by Mahendra Benavides MD, [facility] on 06/25/2016 3:00:25 PM electronically signed on 06/25/2016 3:01:04 PM with status of Final Wall Motion Rangel: 1=Normal, 2=Hypokinesis, 3=Akinesis, 4=Dyskinesis, 5=Aneurysmal, 6=Hyperkinetic, X=Not Visualized (Blank)=Missing
--- NOTE | 2016-06-25 15:11 | Carotid Imaging Report ---
Carotid Duplex Patient Name:Sam Fair Order Number:[id number] Procedure Date:06/25/2016 Date:1940ge:75 yrs Gender:Male Lt BP:127 / 81 mmHg Rt.BP:124 / 83 mmHgHeart Rate: Location:[facility] Room #: Promotions Assistant Sales Marketing:Beth Johnson, RDCS, RVT Referring MD:Darlin Lynch MD, [facility] contact finger assembler:[facility] Reading MD:Simon Quinonez MD Primary Indications:Preoperative Examination Risk Factors Yes/No Diabetes No Hypertension Yes Hypercholesterolemia Yes Hx of TIA No Hx of CVA No Impressions: The bilateral carotid arteries have minimal plaque throughout. Findings Carotid Duplex: Right: The right proximal common carotid artery has a PSV of 57 cm/s and a EDV of 12 cm/s. The right mid common carotid artery has a PSV of 50 cm/s and a EDV of 14 cm/s. The right distal common carotid artery has a PSV of 38 cm/s and a EDV of 10 cm/s. There is nonstenotic plaque in the right bifurcation with a PSV of 28 cm/s and a EDV of 8 cm/s. There is smooth, heterogeneous calcified plaque. The right proximal internal carotid artery has a PSV of 37 cm/s and a EDV of 15 cm/s. The right mid internal carotid artery has a PSV of 29 cm/s and a EDV of 11 cm/s. The right distal internal carotid artery has a PSV of 31 cm/s and a EDV of 13 cm/s. The right eca has a PSV of 56 cm/s and a EDV of 11 cm/s. The right vertebral artery has a PSV of 37 cm/s and a EDV of 15 cm/s. There is antegrade spectral Doppler flow patterns. Left: The left proximal common carotid artery has a PSV of 59 cm/s and a EDV of 9 cm/s. The left mid common carotid artery has a PSV of 50 cm/s and a EDV of 11 cm/s. There is nonstenotic plaque in the left distal common carotid artery with a PSV of 45 cm/s and a EDV of 11 cm/s. There is smooth heterogeneous plaque. There is nonstenotic plaque in the left bifurcation with a PSV of 48 cm/s and a EDV of 11 cm/s. There is smooth heterogeneous plaque. The left proximal internal carotid artery has a PSV of 29 cm/s and a EDV of 10 cm/s. The left mid internal carotid artery has a PSV of 55 cm/s and a EDV of 21 cm/s. The left distal internal carotid artery has a PSV of 51 cm/s and a EDV of 20 cm/s. The left eca has a PSV of 72 cm/s and a EDV of 10 cm/s. The left vertebral artery has a PSV of 18 cm/s and a EDV of 8 cm/s. There is antegrade spectral Doppler flow patterns. Prior Study: No prior study available for comparison. Carotid Results Right PSV EDV Assessment Proximal CCA 57 12 Normal Mid CCA 50 14 Normal Distal CCA 38 10 Normal Bifurcation 28 8 Non Stenotic Plaque Proximal ICA 37 15 Normal Mid ICA 29 11 Normal Distal ICA 31 13 Normal ECA 56 11 Normal Vertebral Artery 37 15 Antegrade Flow Left PSV EDV Assessment Proximal CCA 59 9 Normal Mid CCA 50 11 Normal Distal CCA 45 11 Non Stenotic Plaque Bifurcation 48 11 Non Stenotic Plaque Proximal ICA 29 10 Normal Mid ICA 55 21 Normal Distal ICA 51 20 Normal ECA 72 10 Normal Vertebral Artery 18 8 Antegrade Flow Ratio's Right ICA/CCA Ratio: 0.74 ICA/CCA Values: 37/50 Left ICA/CCA Ratio: 1.10 ICA/CCA Values: 55/50 Updated by Simon Quinonez MD on 06/25/2016 3:05:19 PM electronically signed on 06/25/2016 3:05:47 PM with status of Final
[2016-06-25] MEDS: Chlorhexidine Rinse 15 ML MOUTHWASH MM SCH (21:22)
[2016-06-26] MEDS: Chlorhexidine Rinse 15 ML MOUTHWASH MM SCH ×2 (04:40→20:08)
[2016-06-26] MEDS: Aspirin Enteric Coated 81 MG Tablet PO SCH (05:53)
[2016-06-26] MEDS ORDERED: *HR* Phenylephrine 10 MG/ML VIAL ONE (06:55)
[2016-06-26] MEDS ORDERED: Famotidine 20 MG/2 ML VIAL ONE (06:55)
[2016-06-26] MEDS ORDERED: Protamine Sulfate 250 MG/25 ML VIAL IVP ONE (06:55)
[2016-06-26] MEDS ORDERED: *HR* Rocuronium Bromide 50 MG/5 ML VIAL ONE ×2 (06:55→10:54)
[2016-06-26] MEDS ORDERED: *HR* Etomidate 20 MG/10 ML AMPUL IVP ONE (06:55)
[2016-06-26] MEDS ORDERED: *HR* Norepinephrine 4 MG/4 ML VIAL IVC ONE (06:55)
[2016-06-26] MEDS ORDERED: Tranexamic Acid 1,000 MG/10 ML VIAL ONE ×2 (06:55→09:24)
[2016-06-26] MEDS ORDERED: Nitroglycerin 25 MG/250 ML INFUS..BTL IVC ONE (07:05)
[2016-06-26] MEDS ORDERED: NiCARdipine 2.5 MG/10 ML Syringe IVPB ONE (07:06)
[2016-06-26] MEDS ORDERED: Verapamil 5 MG/2 ML VIAL ONE ×2 (07:10→07:13)
[2016-06-26] MEDS ORDERED: *HR* Midazolam HCl 5 MG/5 ML VIAL IVP ONE (07:11)
[2016-06-26] MEDS ORDERED: *HR* FentaNYL (PF) 1,000 MCG/20 ML VIAL ONE (07:11)
[2016-06-26] MEDS ORDERED: niCARdipine 20 MG/200 ML MLS IVC ONE ×2 (08:28→13:09)
[2016-06-26] MEDS ORDERED: *HR* Amiodarone 150 MG/3 ML VIAL IVPB ONE (09:16)
[2016-06-26] MEDS ORDERED: Amiodarone Premix 360 MG/200 ML BAG IVC ONE ×2 (09:16→12:24)
--- NOTE | 2016-06-26 09:31 | Anesthesia Procedures ---
Date of Encounter: 06/26/16 Time of Encounter: 07:40 Procedures: Anesthesia - Arterial Line Consent obtained: written consent Time out performed: Yes Sedation: Versed (mg): 2 Sedation: Fentanyl (mcg): 100 Supplemental Oxygen via Nasal Cannula (L/min): 2 Local Anesthetic: Lidocaine 1% Amount of Anesthetic used (mls): 1 Size (Gauge): 20 Length (inches): 5 Technique Used: sterile prep, guide wire technique, direct puncture technique Post-Procedure: line taped into place, dry sterile dressing placed Patient tolerated procedure: well, no complications Complications: none Site: Radial L (attempt x 1 easy) - Central Line Placement Right IJ Consent obtained: written consent Time out performed: Yes Patient placed on monitor/pulse ox: Yes prep: mask, gown, gloves Central line prep: Chlorhexidine scrub Ultrasound used for placement: Yes Technique: Seldinger Lumen Inserted: Introducer Post procedure: sutured in place, good blood return, all ports aspirated, flushed, capped, sterile dressing applied Patient tolerated procedure: well, no complications Complications: none Comments: attempt x 1, easy placement of introducer, swan placed, wedge at approx 60 cm, some arrythmia with placement but resolves quickly to NSR
[2016-06-26] MEDS ORDERED: Lidocaine 2% Syringe 100 MG/5 ML IV ONE (09:58)
[2016-06-26] MEDS ORDERED: Mannitol 25% vial 12.5 GM/50 ML VIAL IVP ONE (09:58)
[2016-06-26] MEDS ORDERED: *HR* Phenylephrine 10 MG/ML VIAL IVC ONE (09:58)
[2016-06-26] MEDS ORDERED: *HR* Magnesium Sulfate 2 GM/50 ML PIGGYBACK IVPB ONE (09:58)
[2016-06-26] MEDS ORDERED: *HR* Heparin 10,000 UNIT/10 ML VIAL IV ONE (09:58)
[2016-06-26] MEDS ORDERED: Albumin Human 25% 25 GM/100 ML IV.SOLN IV ONE (09:58)
[2016-06-26] MEDS ORDERED: Sodium Bicarbonate 50 MEQ/50 ML VIAL IVC ONE (09:58)
[2016-06-26] MEDS ORDERED: *HR* Promethazine 25 MG/ML VIAL IVP PRN (12:24)
[2016-06-26] MEDS ORDERED: Potassium Chloride 40 MEQ/200 ML BAG IVPB PRN (12:24)
[2016-06-26] MEDS ORDERED: *HR* Dextrose 50 % in Water (Syg) 50 ML SYRINGE ONE (12:24)
[2016-06-26] MEDS ORDERED: Naloxone 0.4 MG/ML INJ IVP PRN (12:24)
[2016-06-26] MEDS ORDERED: Insulin Regular, Human 100 UNIT/ML IV PRN (12:24)
[2016-06-26] MEDS ORDERED: *HR* Dextrose 50 % in Water (Syg) 50 ML SYRINGE IVP PRN ×2 (12:24→17:10)
[2016-06-26 12:28] LABS: ABG HCO3 23.2 mEQ/L (21-27); ABG Oxygen Saturation 91 % (95-98); ABG PCO2 45 mmHg (35-45); ABG PH 7.32 pH Units (7.32-7.45); ABG PO2 67 mmHg (85-104); ABG TCO2 24.6 mEq/L (20-26); Blood Gas FiO2 50 %
[2016-06-26 12:32] LABS: Basophils % 0.2 %; Hematocrit 33.8 % (37.5-50.1); Hemoglobin 11.4 g/dL (12.9-16.9); Immature Granulocytes % 0.7 % (0-4); Immature Platelets 2.8 % (1.1-6.1); Lymphocytes # 0.4 K/mcL (0.6-4.6); Lymphocytes % 9.7 %; Mean Corpuscular HGB Conc 33.7 g/dL (31.6-35.5); Mean Corpuscular Volume 91.8 fL (83.0-100.0); Monocytes % 0.5 %; Neutrophils # 3.5 K/mcL (1.6-8.9); Red Blood Count 3.68 M/mcL (4.19-5.50); Red Cell Distribution Width 14.8 % (11.5-14.5); Segmented Neutrophils % 87.9 %
--- NOTE | 2016-06-26 12:32 | Operative Note ---
Date of procedure: 06/26/16 Procedure in Detail: Preoperative diagnosis. Coronary artery disease. Postoperative diagnosis. Same. Procedures. Coronary artery bypass grafting 2 with the left internal mammary artery to the LAD in the aorta to the obtuse marginal branch of the circumflex with saphenous vein. Surgeon. Dr. Bran Stevenson. Striker Off. Memo Van. Anesthesia. Dr. Davion Jefferson. Patient is a 75-year-old gentleman with a history of active smoking. He presented with a positive stress test. Gated ejection fraction was 38%. Cardiac catheterization revealed an ejection fraction of 40% and severe coronary artery disease. He was referred for surgery. Echocardiogram revealed minimal aortic regurgitation. CT scan of the thorax and abdomen revealed a 4.5 cm thoracic ascending aortic aneurysm and a 4.7 cm abdominal aortic aneurysm. Carotid duplex revealed minimal carotid disease. The patient was brought to the operating room where he was prepped and draped in standard fashion. The right greater saphenous vein was harvested from the right knee to the right groin. This was done through 2 small incisions using the scope. These incisions were subsequently closed with a deep layer of 0 Vicryl and 2-0 Vicryl subcuticular stitch. Standard median sternotomy was performed. The left internal mammary artery retractor was inserted and the left internal mammary artery was harvested in standard fashion using the Bovie electrocoagulation. This was found to be an adequate vessel with adequate pulse and flow. Following this, mammary retractor was removed and the standard sternal marketing rotation associate was inserted. Pericardium was opened in the midline and suspended with 2-0 silk stay sutures. Double purse string of 20 Surgilon was placed in the aorta for the aortic cannulation site. Purse string of 20 Surgilon was placed in the right atrial appendage for the venous uptake. During this time, the patient went into atrial fibrillation and was started on an amiodarone bolus and drip. The patient was heparinized. The aorta was cannulated without difficulty. 2 stage venous uptake cannula was inserted through the right atrial appendage. The patient was placed on cardiopulmonary bypass and cooled to 34.5. A pursestring of 4-0 silk was placed in the aorta and the cardioplegia needle was inserted through here. This was also used as an active and passive aortic vent. At this point the aorta was crossclamped and a liter of antegrade cardioplegia was given. Topical cooling with iced saline slush was also done. Attention was turned to the circumflex. The obtuse marginal branch was dissected free with the Lummi blade and found to be diffusely diseased. It was opened quite distally with the Lummi blade and the Goldstein scissors and had a lumen of 1/2 mm with moderate diffuse disease. A standard end-to-side anastomosis was constructed using the saphenous vein and a 7-0 Prolene. At this point, the patient received an additional dose of antegrade cardioplegia. Mammary pedicle was harvested. Tonsil clamp was placed distally and was divided with the Metzenbaum scissors. Distal end was tied off with a 2-0 silk suture. Proximal end was trimmed and brought into the wound. The LAD was dissected free with the Lummi blade and found to have severe diffuse disease. It was opened with a Lummi blade and the Goldstein scissors. It had a lumen one and a half millimeters with moderate diffuse disease. A standard end-to-side anastomosis was constructed using the mammary artery and a 7-0 Prolene. When this was completed, the bulldog clamp was removed. The pedicle was tacked to surface the heart using 2 interrupted 5-0 silk sutures. FloSeal was placed around the distal anastomosis. The cross-clamp was removed and rewarming was begun. Total cross-clamp time was 32 minutes. Side biting clamp was placed on the aorta and the cardioplegia needle was removed. A standard end-to-side anastomosis was constructed using the saphenous vein and a 5-0 Prolene. When this was completed, the side-biting clamp was removed. Distal anastomoses were inspected and found to be hemostatic. The proximal anastomosis was marked with a marker for Ray-Moody sponge. A pair of atrial and ventricular pacing wires were left. The patient was initially paced in the DDD mode. The patient was weaned from bypass requiring no pressors for support. The venous cannula was removed but the right atrium in this area tore. We initially attempted to control this using pledgeted and non-pledgeted 30 and 4-0 Prolene sutures. However, the tear enlarged. We did insert a Locke catheter but were unable to repair the tear. The venous cannula was rapidly reinserted through the hole and the patient was placed back on cardiopulmonary bypass. A total of 4 different sutures of 301 4-0 Prolene sutures were placed around the area of the tear. The patient was weaned from bypass. Venous cannula was removed and all 4 sutures were tied down. Hemostasis was good. The area was packed with fibrillar. The tear had started in the right atrium and extended down behind the aorta. Protamine was given. The aortic cannula was removed. 2 additional sutures of 3-0 Prolene with pledgets of background were taken and the site to obtain hemostasis. FloSeal was also placed in this area. A total of 3 chest tubes were left. A 32 right angle chest tube to the left pleural space. A 32 right angle chest tube to the pericardial well. A 42 mediastinal chest tube. Pericardium was loosely closed with interrupted 2-0 silk sutures. Hemostasis was good and the hemodynamics were good. The sternum was closed using #7 sternal wires in simple and [id number] fashion. The fascia was run with a # 1 Vicryl. Subcutaneous tissues tissues with a 2-0 Vicryl. Skin was closed with a 3-0 Vicryl subcuticular stitch. The patient tolerated the procedure well and was returned intensive care unit in satisfactory and stable condition. Total cross-clamp time was 32 minutes. Total bypass time was 80 minutes. He been cooled to 34.5.
[2016-06-26 12:34] LABS: Activated Partial Thrombo Time 40.3 Seconds (26.0-36.0); INR 1.6
[2016-06-26] MEDS ORDERED: 0.9 % Sodium Chloride 250 ML ONE (12:37)
[2016-06-26 12:46] LABS: BUN/Creatinine Ratio 24 (6-26); Blood Urea Nitrogen 19 mg/dL (8-26); Calcium 7.9 mg/dL (8.6-10.8); Carbon Dioxide 23 mEq/L (19-29); Chloride 110 mEq/L (98-109); Glucose 67 mg/dL (70-99); Magnesium 2.6 mg/dL (1.6-2.6); Osmolality,Calculated 295 (280-300); Potassium 3.1 mEq/L (3.5-4.5); Sodium 142 mEq/L (136-145); eGFR For African Americans > 60 (> 60); eGFR For Non-African Americans > 60 (> 60)
[2016-06-26 12:50] LABS: Large Platelets Present (Not Present); Platelet Count 76 K/mcL (140-400); Platelet Estimate Decreased (Normal)
[2016-06-26] MEDS ORDERED: Potassium Chloride 40 MEQ/200 ML BAG IVPB ONE (12:58)
[2016-06-26] MEDS: 0.9 % Sodium Chloride 1,000 ML IVC SCH (13:05)
[2016-06-26] MEDS: Amiodarone Premix 360 MG/200 ML BAG IVC SCH (15:13)
[2016-06-26] MEDS: Nicotine 14 MG PATCH.TD24 TD SCH (15:20)
[2016-06-26] MEDS: Nitroglycerin 25 MG/250 ML INFUS..BTL IVC SCH (15:55)
[2016-06-26] MEDS: ceFAZolin 2,000 MG in D5% in Water 100 ML IVPB SCH (16:08)
[2016-06-26 16:27] LABS: Blood Gas FiO2 35 %
[2016-06-26 16:28] LABS: ABG Base Excess -1.7 mEq/L (-2.0 to 3.0); ABG HCO3 23.7 mEQ/L (21-27); ABG Oxygen Saturation 90 % (95-98); ABG PCO2 42 mmHg (35-45); ABG PO2 62 mmHg (85-104)
[2016-06-26 16:31] LABS: ABG PH 7.36 pH Units (7.32-7.45)
[2016-06-26 16:37] LABS: Basophils % 0.1 %; Eosinophils % 0.1 %; Hematocrit 34.7 % (37.5-50.1); Hemoglobin 11.5 g/dL (12.9-16.9); Immature Granulocytes % 0.5 % (0-4); Lymphocytes # 0.3 K/mcL (0.6-4.6); Lymphocytes % 2.5 %; Mean Corpuscular HGB Conc 33.1 g/dL (31.6-35.5); Mean Corpuscular Hemoglobin 30.5 pg (28.0-33.3); Mean Platelet Volume 9.4 fL (9.4-12.4); Monocytes # 0.2 K/mcL (0.0-1.3); Monocytes % 1.8 %; Neutrophils # 12.3 K/mcL (1.6-8.9); Red Blood Count 3.77 M/mcL (4.19-5.50); Red Cell Distribution Width 15.2 % (11.5-14.5)
[2016-06-26 16:39] LABS: Platelet Count 71 K/mcL (140-400)
[2016-06-26 16:40] LABS: Bilirubin,Urine Negative (Negative); Blood,Urine Small (Negative); Clarity,Urine Clear (Clear); Color,Urine Yellow (Yellow); Glucose,Urine (UA) Normal (Normal); Ketones,Urine Negative (Negative); Leukocyte Esterase,Urine Negative (Negative); Nitrite,Urine Negative (Negative); PH,Urine 6.5 pH Units (5.0-8.0); Protein,Urine Trace mg/dL (Neg-Trace); Specific Gravity,Urine 1.017 (1.010-1.025); Urobilinogen,Urine Normal (Normal)
[2016-06-26] MEDS: niCARdipine 20 MG/200 ML MLS IVC SCH (16:40)
[2016-06-26 16:42] LABS: Bacteria,Urine None Seen per hpf (None-Few); Hyaline Casts,Urine None Seen per lpf (None-Few); Squamous Epithelial Cell,Urine Few per lpf (None-Few); WBC,Urine 0-3 per hpf (0-3)
[2016-06-26 16:45] LABS: BUN/Creatinine Ratio 24 (6-26); Blood Urea Nitrogen 20 mg/dL (8-26); Calcium 7.7 mg/dL (8.6-10.8); Carbon Dioxide 24 mEq/L (19-29); Chloride 110 mEq/L (98-109); Glucose 227 mg/dL (70-99); Osmolality,Calculated 296 (280-300); eGFR For African Americans > 60 (> 60); eGFR For Non-African Americans > 60 (> 60)
[2016-06-26 16:46] LABS: Potassium 4.7 mEq/L (3.5-4.5)
[2016-06-26 16:49] LABS: Sodium 138 mEq/L (136-145)
[2016-06-26 17:00] LABS: Platelet Estimate Marked Decrease (Normal)
[2016-06-26] MEDS ORDERED: Insulin Human Regular 100 UNIT in 0.9 % Sodium Chloride 100 ML IVC SCH (17:15)
[2016-06-26] MEDS: *HR* OxyCODONE/APAP 5/325 TABLET PO PRN (17:25)
--- NOTE | 2016-06-26 20:54 | Electrocardiograph Report ---
[address] [place], [place] [address] Test Date: 2016-06-26 Pat Name: Sam Fair Department: 109 Room: 10 Gender: M Cardiovascular Technician: BC : 1940 Requested By: Bran Stevenson Order Number: [id number] Reading MD: Antonio Stock MD Measurements Intervals [place] Rate: 80 P: 269 [place]: 168 QRS: -25 QRSD: 143 T: 172 QT: 453 QTc: 488 Interpretive Statements ELECTRONIC ATRIAL PACEMAKER ELECTRONIC VENTRICULAR PACEMAKER ABNORMAL RHYTHM ECG Electronically Signed On 06-26-2016 20:53:30 EDT by Antonio Stock MD
[2016-06-26 22:59] LABS: ABG Base Excess -1.4 mEq/L (-2.0 to 3.0); ABG HCO3 21.8 mEQ/L (21-27); ABG Oxygen Saturation 97 % (95-98); ABG PCO2 30 mmHg (35-45); ABG PH 7.47 pH Units (7.32-7.45); ABG PO2 87 mmHg (85-104); ABG TCO2 22.7 mEq/L (20-26)
[2016-06-26 23:00] LABS: Blood Gas FiO2 35 %
[2016-06-27 00:18] LABS: ABG Base Excess -0.6 mEq/L (-2.0 to 3.0); ABG HCO3 22.8 mEQ/L (21-27); ABG Oxygen Saturation 95 % (95-98); ABG PCO2 32 mmHg (35-45); ABG PH 7.46 pH Units (7.32-7.45); ABG PO2 73 mmHg (85-104); ABG TCO2 23.8 mEq/L (20-26)
[2016-06-27 00:19] LABS: Blood Gas FiO2 35 %
[2016-06-27] MEDS: Amiodarone Premix 360 MG/200 ML BAG IVC SCH (00:39)
[2016-06-27] MEDS: *HR* Morphine 2 MG/ML SYRINGE IVP PRN ×5 (00:40→19:54)
[2016-06-27] MEDS: ceFAZolin 2,000 MG in D5% in Water 100 ML IVPB SCH (00:40)
[2016-06-27 01:34] LABS: ABG Base Excess -1.2 mEq/L (-2.0 to 3.0); ABG Oxygen Saturation 91 % (95-98); ABG PCO2 31 mmHg (35-45); ABG PH 7.46 pH Units (7.32-7.45); ABG PO2 57 mmHg (85-104); Blood Gas Liter Flow 4 L/MIN
[2016-06-27 01:35] LABS: Blood Gas FiO2 36 %
[2016-06-27] MEDS: 0.9 % Sodium Chloride 1,000 ML IVC SCH (01:46)
[2016-06-27] MEDS: Ondansetron 4 MG/2 ML VIAL IVP PRN ×2 (01:50→19:54)
[2016-06-27 03:33] LABS: Mean Corpuscular Hemoglobin 31.1 pg (28.0-33.3); Red Blood Count 3.54 M/mcL (4.19-5.50)
[2016-06-27 03:35] LABS: Hematocrit 32.4 % (37.5-50.1); Immature Platelets 5.4 % (1.1-6.1); Lymphocytes # 0.3 K/mcL (0.6-4.6); Mean Corpuscular Volume 91.5 fL (83.0-100.0); Mean Platelet Volume 9.9 fL (9.4-12.4); Red Cell Distribution Width 15.6 % (11.5-14.5)
[2016-06-27 03:38] LABS: INR 1.3
[2016-06-27 03:41] LABS: Activated Partial Thrombo Time 28.4 Seconds (26.0-36.0)
[2016-06-27] MEDS: niCARdipine 20 MG/200 ML MLS IVC SCH ×7 (03:42→21:14)
[2016-06-27 03:44] LABS: BUN/Creatinine Ratio 25 (6-26); Blood Urea Nitrogen 26 mg/dL (8-26); Calcium 8.3 mg/dL (8.6-10.8); Carbon Dioxide 22 mEq/L (19-29); Chloride 111 mEq/L (98-109); Glucose 110 mg/dL (70-99); Magnesium 1.9 mg/dL (1.6-2.6); Osmolality,Calculated 293 (280-300); Sodium 139 mEq/L (136-145); eGFR For African Americans > 60 (> 60); eGFR For Non-African Americans > 60 (> 60)
[2016-06-27 03:46] LABS: Potassium 3.5 mEq/L (3.5-4.5)
[2016-06-27] MEDS: *HR* OxyCODONE/APAP 5/325 TABLET PO PRN (03:58)
[2016-06-27 03:59] LABS: Platelet Count 96 K/mcL (140-400)
[2016-06-27 04:03] LABS: Anisocytosis 1+ (Not Present); Monocytes # 0.5 K/mcL (0.0-1.3); Neutrophils # 12.3 K/mcL (1.6-8.9); Platelet Estimate Decreased (Normal)
[2016-06-27] MEDS: Nitroglycerin 25 MG/250 ML INFUS..BTL IVC SCH ×2 (04:17→15:38)
[2016-06-27] MEDS: Multivit/Ca/Min/Fe/FA 1 TAB TABLET PO SCH (07:38)
[2016-06-27] MEDS: Aspirin Enteric Coated 81 MG Tablet PO SCH (07:38)
[2016-06-27] MEDS: Nicotine 14 MG PATCH.TD24 TD SCH (07:39)
--- NOTE | 2016-06-27 08:22 | Cardiothoracic Progress Note ---
Date of Encounter: 06/27/16 Time of Encounter: 08:19 - Assessment and plan (1) Prostate cancer Current Visit: No Status: Acute I will stop the IV amiodarone drip and placed the patient on by mouth amiodarone. He requests that we change the Percocet to Vicodin. We will restart his by mouth Zestril. We will leave him in the ICU today and work on his pulmonary toilet. - Subjective Interval history: The patient is extubated. He requests that we leave the Locke for several days. He does have a history of prostate cancer, laser prostate surgery and prostate radiation. Vital Signs, Last 4 Hours Temp Pulse Resp BP Pulse Ox 06/27/16 08:00 97.7 F 79 22 138/68 87 06/27/16 07:00 80 16 131/71 90 06/27/16 06:00 80 18 128/63 90 06/27/16 05:00 80 18 119/70 90 Oxgyen Flow Rate Oxygen Flow Rate (LPM) 7 Clinical Data, last 8 Hours Output, Chest Tube Drainage 20 Amount [Mediastinal #3] Output, Chest Tube Drainage 0 Amount [Mediastinal #3] Output, Chest Tube Drainage 12 Amount [Mediastinal #3] Output, Chest Tube Drainage 4 Amount [Mediastinal #3] Output, Chest Tube Drainage 0 Amount [Mediastinal #3] Output, Chest Tube Drainage 10 Amount [Mediastinal #3] Output, Chest Tube Drainage 10 Amount [Mediastinal #3] Output, Chest Tube Drainage 8 Amount [Mediastinal #3] Output, Chest Tube Drainage 10 Amount [Mediastinal #2] Output, Chest Tube Drainage 0 Amount [Mediastinal #2] Output, Chest Tube Drainage 12 Amount [Mediastinal #2] Output, Chest Tube Drainage 14 Amount [Mediastinal #2] Output, Chest Tube Drainage 0 Amount [Mediastinal #2] Output, Chest Tube Drainage 0 Amount [Mediastinal #2] Output, Chest Tube Drainage 0 Amount [Mediastinal #2] Output, Chest Tube Drainage 2 Amount [Mediastinal #2] Output, Chest Tube Drainage 0 Amount [Mediastinal #1] Output, Chest Tube Drainage 0 Amount [Mediastinal #1] Output, Chest Tube Drainage 20 Amount [Mediastinal #1] Output, Chest Tube Drainage 16 Amount [Mediastinal #1] Output, Chest Tube Drainage 0 Amount [Mediastinal #1] Output, Chest Tube Drainage 0 Amount [Mediastinal #1] Output, Chest Tube Drainage 0 Amount [Mediastinal #1] Output, Chest Tube Drainage 12 Amount [Mediastinal #1] Output, Chest Tube Drainage 32 Amount [Mediastinal #1] Weight 06/25/16 06/26/16 06/27/16 23:59 23:59 23:59 Weight 70.8 kg 66.9 kg Chest tube drainage is minimal. Lungs are clear to percussion and auscultation. Heart is in a paced rhythm. When the pacemaker is turned off, the heart rate is in the lower 30s. All incisions are healing well without signs of infection and the sternum is stable. - Labs 06/27/16 03:25 06/27/16 03:25 Lab Results, Last 24 hours 06/26/16 06/26/16 06/26/16 12:13 12:13 12:13 WBC 4.0 L Hgb 11.4 L Hct 33.8 L Plt Count 76 L INR 1.6 APTT 40.3 H Sodium 142 Potassium 3.1 L Chloride 110 H Carbon Dioxide 23 BUN 19 D Creatinine 0.79 Glucose 67 L Calcium 7.9 L D Magnesium 2.6 06/26/16 06/26/16 06/27/16 16:15 16:15 03:25 WBC 12.9 H D 13.1 H Hgb 11.5 L 11.0 L Hct 34.7 L 32.4 L Plt Count 71 L 96 L INR APTT Sodium 138 Potassium 4.7 H D Chloride 110 H Carbon Dioxide 24 BUN 20 Creatinine 0.84 Glucose 227 H Calcium 7.7 L Magnesium 06/27/16 06/27/16 03:25 03:25 WBC Hgb Hct Plt Count INR 1.3 APTT 28.4 Sodium 139 Potassium 3.5 D Chloride 111 H Carbon Dioxide 22 BUN 26 Creatinine 1.03 Glucose 110 H Calcium 8.3 L Magnesium 1.9 - VTE Documentation of Mechanical Device: Graduated compression elastic hosiery Consult Discharge Plan - Plan Referrals: Mahendra Albert DO [Primary Care Provider] -
[2016-06-27] MEDS: Chlorhexidine Rinse 15 ML MOUTHWASH MM SCH ×2 (08:30→21:12)
[2016-06-27] MEDS ORDERED: *HR* Dextrose 50 % in Water (Syg) 50 ML SYRINGE IVP PRN (08:31)
[2016-06-27] MEDS ORDERED: Dextrose Gel 15 GM PO PRN ×2 (08:31)
[2016-06-27] MEDS ORDERED: D5% in Water 1,000 ML IVC PRN (08:31)
[2016-06-27] MEDS: *HR* Amiodarone 200 MG TABLET PO SCH (08:54)
[2016-06-27] MEDS: Lisinopril 20 MG TABLET PO SCH (08:54)
[2016-06-27] MEDS: Furosemide 20 MG/2 ML VIAL IVP SCH ×2 (09:41→21:13)
[2016-06-27] MEDS: *HR* HYDROcodone/Acet 5/325 mg TABLET PO PRN ×3 (10:19→21:13)
[2016-06-27] MEDS: Potassium Chloride Elixir 20 MEQ/15 ML UDC PO SCH ×2 (11:14→21:12)
[2016-06-27] MEDS: Insulin LISPRO 300 UNITS/3 ML VIAL SQ SCH ×3 (12:11→21:29)
[2016-06-27] MEDS ORDERED: Mag Hydrox/Al Hydrox/Simeth 30 ML UDC PO PRN (20:41)
[2016-06-28 02:43] LABS: Basophils % 0.1 %; Immature Granulocytes % 0.9 % (0-4); Mean Corpuscular Volume 92.6 fL (83.0-100.0)
[2016-06-28 02:44] LABS: Eosinophils % 0.3 %; Hematocrit 30.2 % (37.5-50.1); Immature Platelets 5.9 % (1.1-6.1); Lymphocytes # 0.5 K/mcL (0.6-4.6); Lymphocytes % 3.6 %; Mean Corpuscular HGB Conc 33.1 g/dL (31.6-35.5); Mean Corpuscular Hemoglobin 30.7 pg (28.0-33.3); Mean Platelet Volume 10.3 fL (9.4-12.4); Monocytes # 0.6 K/mcL (0.0-1.3); Monocytes % 4.7 %; Neutrophils # 11.4 K/mcL (1.6-8.9); Red Blood Count 3.26 M/mcL (4.19-5.50); Red Cell Distribution Width 15.6 % (11.5-14.5); Segmented Neutrophils % 90.4 %
[2016-06-28 02:46] LABS: Platelet Count 97 K/mcL (140-400)
[2016-06-28 03:00] LABS: BUN/Creatinine Ratio 32 (6-26); Calcium 8.8 mg/dL (8.6-10.8); Carbon Dioxide 25 mEq/L (19-29); Chloride 105 mEq/L (98-109); Glucose 164 mg/dL (70-99); Osmolality,Calculated 299 (280-300); Potassium 4.2 mEq/L (3.5-4.5); Sodium 137 mEq/L (136-145); eGFR For African Americans > 60 (> 60); eGFR For Non-African Americans 51 (> 60)
[2016-06-28 03:06] LABS: Blood Urea Nitrogen 44 mg/dL (8-26)
[2016-06-28] MEDS: *HR* HYDROcodone/Acet 5/325 mg TABLET PO PRN ×3 (06:10→20:31)
[2016-06-28] MEDS: niCARdipine 20 MG/200 ML MLS IVC SCH ×5 (06:11→20:31)
[2016-06-28] MEDS: Nitroglycerin 25 MG/250 ML INFUS..BTL IVC SCH ×3 (06:12→20:37)
[2016-06-28] MEDS: Aspirin Enteric Coated 81 MG Tablet PO SCH (07:58)
[2016-06-28] MEDS: Chlorhexidine Rinse 15 ML MOUTHWASH MM SCH ×2 (08:00→20:30)
[2016-06-28] MEDS: Multivit/Ca/Min/Fe/FA 1 TAB TABLET PO SCH (08:01)
[2016-06-28] MEDS: Lisinopril 20 MG TABLET PO SCH (08:02)
[2016-06-28] MEDS: Nicotine 14 MG PATCH.TD24 TD SCH (08:03)
[2016-06-28] MEDS: *HR* Amiodarone 200 MG TABLET PO SCH (08:05)
[2016-06-28] MEDS: Insulin LISPRO 300 UNITS/3 ML VIAL SQ SCH ×4 (08:12→20:32)
--- NOTE | 2016-06-28 08:35 | Cardiothoracic Progress Note ---
Date of Encounter: 06/28/16 Time of Encounter: 08:32 - Assessment and plan (1) Prostate cancer Current Visit: No Status: Acute The chest tubes were removed. We will check a stat portable chest x-ray. I will discontinue the patient's amiodarone and Coreg. The patient will most likely require a permanent pacemaker. I will consult cardiology. We will continue with vigorous pulmonary toilet. - Subjective Interval history: The patient has no complaints other than mild postoperative pain. He states that his breathing is improving. Vital Signs, Last 4 Hours Temp Pulse Resp BP Pulse Ox 06/28/16 07:43 20 129/61 89 06/28/16 07:30 80 20 129/61 88 06/28/16 07:28 96.8 F L 06/28/16 06:00 80 20 113/62 90 06/28/16 05:00 80 24 121/66 92 06/28/16 04:57 80 Oxgyen Flow Rate Oxygen Flow Rate (LPM) 15 Clinical Data, last 8 Hours Output, Chest Tube Drainage 10 Amount [Mediastinal #3] Output, Chest Tube Drainage 20 Amount [Mediastinal #2] Output, Chest Tube Drainage 10 Amount [Mediastinal #1] Output, Urine Amount 0 Weight 06/26/16 06/27/16 06/28/16 23:59 23:59 23:59 Weight 66.9 kg 79.379 kg Lungs are clear to percussion and auscultation. Heart is in a paced rhythm. I paused the pacemaker and the patient was asystolic. All incisions are healing well without signs of infection and the sternum is stable. - Labs 06/28/16 02:30 06/28/16 02:30 Lab Results, Last 24 hours 06/27/16 06/28/16 06/28/16 10:24 02:30 02:30 WBC 12.6 H Hgb 10.0 L Hct 30.2 L Plt Count 97 L Sodium 137 Potassium 3.8 4.2 Chloride 105 Carbon Dioxide 25 BUN 44 H D Creatinine 1.37 H Glucose 164 H Calcium 8.8 - VTE Documentation of Mechanical Device: Graduated compression elastic hosiery Consult Discharge Plan - Plan Referrals: Mahendra Albert DO [Primary Care Provider] -
[2016-06-28] MEDS ORDERED: Furosemide 40 MG/4 ML VIAL IVP ONE ×2 (09:50→11:00)
--- NOTE | 2016-06-28 11:22 | Cardiology Progress Note ---
Date of Encounter: 06/28/16 Time of Encounter: 11:00 Assessment and Plan (1) Sick sinus syndrome Current Visit: Yes Status: Acute 2v CABG, post-op day #2. Dependent on temporary pacing via epicardial wires, pacer paused this AM, underlying asystolic. Coreg and amiodarone d/c'ed by Dr. Stevenson. BP stable. Will continue to monitor and check after AV crhistiano blocking agents held; will likely need a PPM. (2) CAD (coronary artery disease) Current Visit: Yes Status: Acute Per cardiology: Abnormal stress test 06/24/16, directly admitted from stress lab. [facility] 06/24/16: 80% pLAD, 99% mLAD, 90% dLAD, 99% diagonal 1, 99% prox-distal LCx, 100% OM 1 with left to left collaterals, 99% OM 2, 50% pRCA. TTE 06/25/16: EF 40-45% with regional wall motion abnormalities, mild AR, mild MR , mild LVDD 2v CABG on 06/26/[address] Stevenson--ALLEN to LAD, SCG-Om. Continue asa and statin. Betablocker d/c'ed due to SSS. Qualifiers: Coronary Disease-Associated Artery/Lesion type: [place] artery [place] vs. transplanted heart: [place] heart Associated angina: with unspecified angina Qualified Code(s): I25.119 - Atherosclerotic heart disease of [place] coronary artery with unspecified angina pectoris Discussion w patient/family: The assessment and plan as outlined above was discussed with the patient and/or family members who expressed understanding and agreement. All questions were answered. Thank you for involving us in the care of your patient. Please call with any questions. The patient will be discussed and reviewed with ; changes to be made accordingly. Subjective Principal diagnosis: CAD s/p CABG Interval history: Seen and examined, at bedside. Patient is up to chair, CT removed today, states dyspnea/pleuritic pain has improved. Objective Vital Signs, Last 4 Hours Temp Pulse Resp BP Pulse Ox 06/28/16 11:00 98.0 F 80 20 126/57 89 06/28/16 10:30 80 18 111/54 92 06/28/16 09:11 80 20 112/57 93 06/28/16 08:31 80 18 138/64 89 06/28/16 08:00 80 04/16/17 07:43 20 129/61 89 06/28/16 07:30 80 20 129/61 88 06/28/16 07:28 96.8 F L General: Conversant HEENT: Atraumatic, Normocephaly Cardiac: Reg Rate and Rhythm (paced) Lungs: Other (Diminished bibasilar) Neuro: Alert and responsive Abdomen: Soft Skin: No rashes noted on visualized skin, Other (mid-sternal incision, dressing in place) Musculoskeletal: No Chest Wall Tenderness Extremities: No Edema, Normal Pulses Results 06/28/16 02:30 06/28/16 02:30 Lab Results 06/28/16 06/28/16 02:30 02:30 WBC 12.6 H Hgb 10.0 L Hct 30.2 L Plt Count 97 L Sodium 137 Potassium 4.2 Chloride 105 Carbon Dioxide 25 BUN 44 H D Creatinine 1.37 H Glucose 164 H Calcium 8.8 Active Medications Acetaminophen/Hydrocodone Bitart ([place] 5-325 Mg) 1 tab PO Q4HR PRN PRN Reason: Pain Stop: 12/27/16 08:31 Last Admin: 06/28/16 06:10 Dose: 1 tab Al Hydrox/Mg Hydrox/Simethicone (Maalox) 30 ml PO Q2HR PRN; Protocol PRN Reason: Indigestion Stop: 12/27/16 20:42 Last Admin: 06/27/16 21:12 Dose: 30 ml Albuterol Sulfate (Albuterol Inhaler) 2 puff IH [id number] BOYD Stop: 12/26/16 16:01 Last Admin: 06/28/16 07:43 Dose: 2 puff Aspirin (Aspirin Ec) 81 mg PO DAILY BOYD Stop: 12/25/16 09:01 Last Admin: 06/28/16 07:58 Dose: 81 mg Atorvastatin Calcium (Lipitor) 80 mg PO HS BOYD Stop: 12/24/16 21:01 Last Admin: 06/27/16 21:14 Dose: 80 mg Chlorhexidine Gluconate (Chlorhexidine Rinse) 15 ml MM BID BOYD Stop: 12/26/16 21:01 Last Admin: 06/28/16 08:00 Dose: 15 ml Dextrose/Water (Dextrose 50% (Syg)) 25 ml IVP AD PRN PRN Reason: Hypoglycemia Stop: 12/27/16 08:32 Docusate Sodium (Colace) 100 mg PO BID BOYD Stop: 12/26/16 21:01 Last Admin: 06/28/16 08:00 Dose: 100 mg Glucagon (Glucagen) 1 mg IM ONCE PRN PRN Reason: Hypoglycemia Stop: 12/27/16 08:32 Glucose (Gluctose) 15 gm PO ONCE PRN PRN Reason: Hypoglycemia Stop: 12/27/16 08:32 Glucose (Gluctose) 30 gm PO ONCE PRN PRN Reason: Hypoglycemia Stop: 12/27/16 08:32 Nicardipine HCl (Cardene Premix 20mg/200ml) 20 mg in 200 mls @ 50 mls/hr IVC .Q4H BOYD PRN Reason: 5 MG/HR Stop: 12/26/16 12:25 Last Admin: 06/28/16 10:48 Dose: Not Given Nitroglycerin (Nitroglycerin) 25 mg in 250 mls @ 20.07 mls/hr IVC .[id number] BOYD PRN Reason: 0.5 MCG/KG/MIN Stop: 12/26/16 12:25 Last Admin: 06/28/16 06:12 Dose: Not Given Potassium Chloride (Potassium Chloride 10 Meq/100ml) 10 meq in 100 mls @ 100 mls/hr IVPB ONCE PRN PRN Reason: Potassium 3.6-3.9 Stop: 12/26/16 12:25 Potassium Chloride (Potassium Chloride 20 Meq/100 Ml) 20 meq in 100 mls @ 100 mls/hr IVPB Q1H PRN PRN Reason: Potassium 3.3-3.5 Stop: 12/26/16 12:25 Last Infusion: 06/27/16 06:10 Dose: Infused Potassium Chloride (Potassium Chloride 20 Meq/100 Ml) 40 meq in 200 mls @ 100 mls/hr IVPB Q1H PRN PRN Reason: SEE COMMENTS Stop: 12/26/16 12:25 Dextrose (Dextrose 5%) 1,000 mls @ 100 mls/hr IVC .Q10H PRN PRN Reason: HYPOGLYCEMIA Stop: 12/27/16 08:32 Insulin Human Lispro (Humalog) 0 units SQ HS BOYD PRN Reason: Protocol Stop: 12/27/16 21:01 Last Admin: 06/27/16 21:29 Dose: Not Given Insulin Human Lispro (Humalog) 0 units SQ TIDAC [facility] PRN Reason: Protocol Stop: 12/27/16 11:31 Last Admin: 06/28/16 11:12 Dose: 6 units Lisinopril (Zestril) 40 mg PO DAILY [facility] PRN Reason: Protocol Stop: 12/27/16 09:01 Last Admin: 06/28/16 08:02 Dose: 40 mg Morphine Sulfate (Morphine Sulfate) 2 mg IVP Q1H PRN PRN Reason: Moderate Pain Stop: 12/26/16 12:25 Last Admin: 06/27/16 19:54 Dose: 2 mg Multivitamins/Calcium (Thera M Plus) 1 tab PO DAILY [facility] Stop: 12/25/16 09:01 Last Admin: 06/28/16 08:01 Dose: 1 tab Naloxone HCl (Narcan) 0.4 mg IVP Q2MIN PRN PRN Reason: Opioid Reversal Stop: 12/24/16 14:48 Nicotine (Nicoderm) 14 mg TD DAILY [facility] PRN Reason: Protocol Stop: 12/26/16 12:25 Last Admin: 06/28/16 08:03 Dose: 14 mg Ondansetron HCl (Zofran) 4 mg IVP Q6H PRN PRN Reason: Nausea And Vomiting Stop: 12/26/16 12:25 Last Admin: 06/27/16 19:54 Dose: 4 mg Oxybutynin Chloride (Ditropan) 5 mg PO DAILY PRN; Protocol PRN Reason: Bladder Spasms Stop: 12/25/16 09:01 Oxybutynin Chloride (Ditropan) 5 mg PO BID [facility] PRN Reason: Protocol Stop: 12/24/16 21:01 Last Admin: 06/28/16 07:58 Dose: 5 mg Promethazine HCl (Phenergan) 12.5 mg IVP Q6HR PRN PRN Reason: Nausea And Vomiting Stop: 12/26/16 12:25 Tamsulosin HCl (Flomax) 0.4 mg PO BID [facility] PRN Reason: Protocol Stop: 12/24/16 21:01 Last Admin: 06/28/16 08:00 Dose: 0.4 mg - Imaging and Cardiology Echo: report reviewed Cardiac cath: report reviewed Other Results: 24 hour tele: avg HR=80 paced. - EKG Interpretation EKG results cardiology: personally reviewed - VTE Documentation of Mechanical Device: Graduated compression elastic hosiery Consult Discharge Plan - Plan Referrals: Mahendra Albert DO [Primary Care Provider] -
[2016-06-28] MEDS: *HR* Morphine 2 MG/ML SYRINGE IVP PRN (19:38)
[2016-06-28] MEDS: Ondansetron 4 MG/2 ML VIAL IVP PRN (19:38)
[2016-06-29] MEDS: niCARdipine 20 MG/200 ML MLS IVC SCH ×2 (03:26→20:47)
[2016-06-29] MEDS: Nitroglycerin 25 MG/250 ML INFUS..BTL IVC SCH ×3 (03:26→20:47)
[2016-06-29] MEDS: *HR* HYDROcodone/Acet 5/325 mg TABLET PO PRN ×3 (03:51→20:46)
[2016-06-29 03:56] LABS: Basophils % 0.1 %; Eosinophils % 0.8 %; Mean Corpuscular Volume 91.9 fL (83.0-100.0); Red Cell Distribution Width 14.9 % (11.5-14.5)
[2016-06-29 03:58] LABS: Eosinophils # 0.1 K/mcL (0.0-0.6); Hematocrit 29.4 % (37.5-50.1); Hemoglobin 9.8 g/dL (12.9-16.9); Immature Granulocytes % 0.9 % (0-4); Immature Platelets 7.2 % (1.1-6.1); Lymphocytes # 0.4 K/mcL (0.6-4.6); Mean Corpuscular HGB Conc 33.3 g/dL (31.6-35.5); Mean Corpuscular Hemoglobin 30.6 pg (28.0-33.3); Monocytes # 0.4 K/mcL (0.0-1.3); Monocytes % 3.1 %; Segmented Neutrophils % 92.1 %
[2016-06-29 03:59] LABS: BUN/Creatinine Ratio 56 (6-26); Blood Urea Nitrogen 54 mg/dL (8-26); Calcium 9.3 mg/dL (8.6-10.8); Carbon Dioxide 22 mEq/L (19-29); Chloride 104 mEq/L (98-109); Glucose 139 mg/dL (70-99); Osmolality,Calculated 293 (280-300); Potassium 4.1 mEq/L (3.5-4.5); Sodium 133 mEq/L (136-145); eGFR For African Americans > 60 (> 60); eGFR For Non-African Americans > 60 (> 60)
[2016-06-29 04:05] LABS: Neutrophils # 11.1 K/mcL (1.6-8.9); Platelet Count 98 K/mcL (140-400)
[2016-06-29] MEDS: Insulin LISPRO 300 UNITS/3 ML VIAL SQ SCH ×4 (08:09→21:03)
--- NOTE | 2016-06-29 08:15 | Cardiothoracic Progress Note ---
Date of Encounter: 06/29/16 Time of Encounter: 08:13 - Assessment and plan (1) CAD (coronary artery disease) Current Visit: Yes Status: Acute The patient continues to recover well from his CABG2. He remains 100% A-V paced since his operation. He will be evaluated by the EP staff air tactical officer tomorrow for possible permanent pacemaker insertion. He is currently off all medications which may effect heart rate. He will remain in the ICU for close monitoring because of his pacer-dependent status. The assessment and plan as outlined above was discussed with the patient and/or family members who expressed understanding and agreement. All questions were answered. Qualifiers: Coronary Disease-Associated Artery/Lesion type: [place] artery [place] vs. transplanted heart: [place] heart Associated angina: with unspecified angina Qualified Code(s): I25.119 - Atherosclerotic heart disease of [place] coronary artery with unspecified angina pectoris - Subjective Procedure(s) Performed: POD#3 S/P CABG2 Interval history: The patient is sitting comfortably in a chair side of the bed. He is breathing easily. He is 100% paced. Vital Signs, Last 4 Hours Temp Pulse Resp BP Pulse Ox 06/29/16 08:00 98.5 F 06/29/16 07:54 79 06/29/16 07:45 21 153/72 90 06/29/16 07:33 16 91 06/29/16 06:00 79 12 137/64 89 06/29/16 05:00 80 18 137/64 88 Oxgyen Flow Rate Oxygen Flow Rate (LPM) 5 Weight 06/27/16 06/28/16 06/29/16 23:59 23:59 23:59 Weight 79.379 kg - Physical Examination General: Conversant, No Apparent Distress Neck: No JVD, Normal carotid pulses Cardiac: Reg Rate and Rhythm (100% A-V paced.), Normal S1 and S2 Incision: No signs of infection, Dry/intact dressing Sternum: Stable Pacing Wires: In place Lungs: Normal Breath Sounds, No Wheeze, Rales, Rhonchi Neuro: Alert and responsive, No focal deficits noted Vascular: Normal capillary refill Musculoskeletal: No Chest Wall Tenderness Extremities: No Clubbing, No Cyanosis, No Edema - Labs 06/29/16 03:40 06/29/16 03:40 Lab Results, Last 24 hours 06/29/16 06/29/16 03:40 03:40 WBC 12.1 H Hgb 9.8 L Hct 29.4 L Plt Count 98 L Sodium 133 L Potassium 4.1 Chloride 104 Carbon Dioxide 22 BUN 54 H Creatinine 0.97 Glucose 139 H Calcium 9.3 - VTE Documentation of Mechanical Device: Graduated compression elastic hosiery Consult Discharge Plan - Plan Referrals: Mahendra Albert DO [Primary Care Provider] -
[2016-06-29] MEDS: Nicotine 14 MG PATCH.TD24 TD SCH (08:17)
[2016-06-29] MEDS: Chlorhexidine Rinse 15 ML MOUTHWASH MM SCH ×2 (08:17→20:47)
[2016-06-29] MEDS: Multivit/Ca/Min/Fe/FA 1 TAB TABLET PO SCH (08:17)
[2016-06-29] MEDS: Aspirin Enteric Coated 81 MG Tablet PO SCH (08:17)
--- NOTE | 2016-06-29 10:04 | Cardiology Progress Note ---
Date of Encounter: 06/29/16 Time of Encounter: 09:40 Assessment and Plan (1) Sick sinus syndrome Current Visit: Yes Status: Acute 2v CABG, post-op day #3. Remains 100% AV pacer dependent. Temporary pacing via epicardial wires, pacer paused this AM, underlying continues to be asystolic. Coreg and amiodarone d/c'ed on 06/28/16. BP stable. Will continue to monitor and check after AV christiano blocking agents held; will plan for PPM tomorrow with Dr. Memo Lynch. NPO after MN. (2) CAD (coronary artery disease) Current Visit: Yes Status: Acute Per cardiology: Abnormal stress test 06/24/16, directly admitted from stress lab. [facility] 06/24/16: 80% pLAD, 99% mLAD, 90% dLAD, 99% diagonal 1, 99% prox-distal LCx, 100% OM 1 with left to left collaterals, 99% OM 2, 50% pRCA. TTE 06/25/16: EF 40-45% with regional wall motion abnormalities, mild AR, mild MR , mild LVDD 2v CABG on 06/26/[address] Stevenson--ALEJANDRO to LAD, SCG-Om. Continue asa and statin. Betablocker d/c'ed due to SSS. Qualifiers: Coronary Disease-Associated Artery/Lesion type: [place] artery [place] vs. transplanted heart: [place] heart Associated angina: with unspecified angina Qualified Code(s): I25.119 - Atherosclerotic heart disease of [place] coronary artery with unspecified angina pectoris Discussion w patient/family: The assessment and plan as outlined above was discussed with the patient and/or family members who expressed understanding and agreement. All questions were answered. Thank you for involving us in the care of your patient. Please call with any questions. The patient will be discussed and reviewed with ; changes to be made accordingly. Subjective Principal diagnosis: CAD s/p CABG Interval history: Seen and examined, at bedside. Patient is up to chair, CT removed 06/28/16, states dyspnea/pleuritic pain has improved. Oxygen requirements decreasing. Lety RN with cardiac rehab at bedside to discuss Cardiac Rehab. Objective Vital Signs, Last 4 Hours Temp Pulse Resp BP Pulse Ox 06/29/16 09:43 79 21 139/64 90 06/29/16 08:34 79 20 143/67 90 06/29/16 08:00 98.5 F 06/29/16 07:54 79 06/29/16 07:45 21 153/72 90 06/29/16 07:33 16 91 General: Conversant, No Apparent Distress HEENT: Atraumatic, Normocephaly, Mucus Membranes Moist Cardiac: Reg Rate and Rhythm (paced) Lungs: Other (Diminished bibasilar) Neuro: Alert and responsive Abdomen: Soft Skin: Other (mid-sternal incision--dressing intact. ) Extremities: No Edema, Normal Pulses Results 06/29/16 03:40 06/29/16 03:40 Lab Results 06/29/16 06/29/16 03:40 03:40 WBC 12.1 H Hgb 9.8 L Hct 29.4 L Plt Count 98 L Sodium 133 L Potassium 4.1 Chloride 104 Carbon Dioxide 22 BUN 54 H Creatinine 0.97 Glucose 139 H Calcium 9.3 Active Medications Acetaminophen/Hydrocodone Bitart ([place] 5-325 Mg) 1 tab PO Q4HR PRN PRN Reason: Pain Stop: 12/27/16 08:31 Last Admin: 06/29/16 03:51 Dose: 1 tab Al Hydrox/Mg Hydrox/Simethicone (Maalox) 30 ml PO Q2HR PRN; Protocol PRN Reason: Indigestion Stop: 12/27/16 20:42 Last Admin: 06/27/16 21:12 Dose: 30 ml Albuterol Sulfate (Albuterol Inhaler) 2 puff IH [id number] BOYD Stop: 12/26/16 16:01 Last Admin: 06/29/16 07:33 Dose: 2 puff Aspirin (Aspirin Ec) 81 mg PO DAILY BOYD Stop: 12/25/16 09:01 Last Admin: 06/29/16 08:17 Dose: 81 mg Atorvastatin Calcium (Lipitor) 80 mg PO HS BOYD Stop: 12/24/16 21:01 Last Admin: 06/28/16 20:31 Dose: 80 mg Chlorhexidine Gluconate (Chlorhexidine Rinse) 15 ml MM BID BOYD Stop: 12/26/16 21:01 Last Admin: 06/29/16 08:17 Dose: 15 ml Dextrose/Water (Dextrose 50% (Syg)) 25 ml IVP AD PRN PRN Reason: Hypoglycemia Stop: 12/27/16 08:32 Docusate Sodium (Colace) 100 mg PO BID BOYD Stop: 12/26/16 21:01 Last Admin: 06/29/16 08:18 Dose: Not Given Glucagon (Glucagen) 1 mg IM ONCE PRN PRN Reason: Hypoglycemia Stop: 12/27/16 08:32 Glucose (Gluctose) 15 gm PO ONCE PRN PRN Reason: Hypoglycemia Stop: 12/27/16 08:32 Glucose (Gluctose) 30 gm PO ONCE PRN PRN Reason: Hypoglycemia Stop: 12/27/16 08:32 Nicardipine HCl (Cardene Premix 20mg/200ml) 20 mg in 200 mls @ 50 mls/hr IVC .Q4H BOYD PRN Reason: 5 MG/HR Stop: 12/26/16 12:25 Last Admin: 06/29/16 03:26 Dose: Not Given Nitroglycerin (Nitroglycerin) 25 mg in 250 mls @ 20.07 mls/hr IVC .[id number] BOYD PRN Reason: 0.5 MCG/KG/MIN Stop: 12/26/16 12:25 Last Admin: 06/29/16 08:07 Dose: 0.5 mcg/kg/min, 20.07 mls/hr Potassium Chloride (Potassium Chloride 10 Meq/100ml) 10 meq in 100 mls @ 100 mls/hr IVPB ONCE PRN PRN Reason: Potassium 3.6-3.9 Stop: 12/26/16 12:25 Potassium Chloride (Potassium Chloride 20 Meq/100 Ml) 20 meq in 100 mls @ 100 mls/hr IVPB Q1H PRN PRN Reason: Potassium 3.3-3.5 Stop: 12/26/16 12:25 Last Infusion: 06/27/16 06:10 Dose: Infused Potassium Chloride (Potassium Chloride 20 Meq/100 Ml) 40 meq in 200 mls @ 100 mls/hr IVPB Q1H PRN PRN Reason: SEE COMMENTS Stop: 12/26/16 12:25 Dextrose (Dextrose 5%) 1,000 mls @ 100 mls/hr IVC .Q10H PRN PRN Reason: HYPOGLYCEMIA Stop: 12/27/16 08:32 Insulin Human Lispro (Humalog) 0 units SQ HS [facility] PRN Reason: Protocol Stop: 12/27/16 21:01 Last Admin: 06/28/16 20:32 Dose: Not Given Insulin Human Lispro (Humalog) 0 units SQ TIDAC [facility] PRN Reason: Protocol Stop: 12/27/16 11:31 Last Admin: 06/29/16 08:09 Dose: Not Given Lisinopril (Zestril) 40 mg PO DAILY [facility] PRN Reason: Protocol Stop: 12/27/16 09:01 Last Admin: 06/28/16 08:02 Dose: 40 mg Morphine Sulfate (Morphine Sulfate) 2 mg IVP Q1H PRN PRN Reason: Moderate Pain Stop: 12/26/16 12:25 Last Admin: 06/28/16 19:38 Dose: 2 mg Multivitamins/Calcium (Thera M Plus) 1 tab PO DAILY [facility] Stop: 12/25/16 09:01 Last Admin: 06/29/16 08:17 Dose: 1 tab Naloxone HCl (Narcan) 0.4 mg IVP Q2MIN PRN PRN Reason: Opioid Reversal Stop: 12/24/16 14:48 Nicotine (Nicoderm) 14 mg TD DAILY [facility] PRN Reason: Protocol Stop: 12/26/16 12:25 Last Admin: 06/29/16 08:17 Dose: 14 mg Ondansetron HCl (Zofran) 4 mg IVP Q6H PRN PRN Reason: Nausea And Vomiting Stop: 12/26/16 12:25 Last Admin: 06/28/16 19:38 Dose: 4 mg Oxybutynin Chloride (Ditropan) 5 mg PO DAILY PRN; Protocol PRN Reason: Bladder Spasms Stop: 12/25/16 09:01 Oxybutynin Chloride (Ditropan) 5 mg PO BID [facility] PRN Reason: Protocol Stop: 12/24/16 21:01 Last Admin: 06/29/16 08:17 Dose: 5 mg Promethazine HCl (Phenergan) 12.5 mg IVP Q6HR PRN PRN Reason: Nausea And Vomiting Stop: 12/26/16 12:25 Tamsulosin HCl (Flomax) 0.4 mg PO BID [facility] PRN Reason: Protocol Stop: 12/24/16 21:01 Last Admin: 06/29/16 08:17 Dose: 0.4 mg - Imaging and Cardiology Stress Test: report reviewed Echo: report reviewed Cardiac cath: report reviewed Other Results: 12 hour tele: avg HR=80 AV paced. - EKG Interpretation EKG results cardiology: personally reviewed - VTE Documentation of Mechanical Device: Graduated compression elastic hosiery Consult Discharge Plan - Plan Referrals: Mahendar Albert DO [Primary Care Provider] -
[2016-06-29] MEDS: Lisinopril 20 MG TABLET PO SCH (11:39)
--- NOTE | 2016-06-29 16:37 | Pulmonology Consult Note ---
<Angel Luis Hurt - Last Filed: 06/29/16 16:31> Date of Encounter: 06/29/16 Time of Encounter: 16:31 Assessment and Plan (1) Atelectasis of both lungs Current Visit: Yes Status: Acute 1. Atelectasis of both lungs - Continue albuterol inhaler - Continue incentive spirometry 6x/hr while awake - Continue supplemental O2 PRN - Begin symbicort inhaler - Begin flonase - Lasix 40mg IVP x1 - Will continue to monitor 2. Sick sinus syndrome Cardiology following: All rate limiting medications d/c'd. Temporary transvenous pacer in place. Transcutaneous pads in place as backup. Plan for permanent pacemaker placement tomorrow. Agree with current management and plan. 3. s/p CABG x2 Op date 06/25/16. Cardiothoracic following. Agree with current management and plan. 4. CAD Cardiology following. Agree with current management and plan. 5. Tobacco dependence 1/2 PPD x 30yrs No previous dependence upon home O2 or breathing treatments. Patient is ready to quit. Nicotene patch in place. (2) Sick sinus syndrome Current Visit: Yes Status: Acute Plan as above (3) S/P CABG x 2 Current Visit: Yes Status: Acute Plan as above (4) CAD (coronary artery disease) Current Visit: Yes Status: Acute Plan as above Qualifiers: Coronary Disease-Associated Artery/Lesion type: [place] artery [place] vs. transplanted heart: [place] heart Associated angina: with unspecified angina Qualified Code(s): I25.119 - Atherosclerotic heart disease of [place] coronary artery with unspecified angina pectoris (5) Tobacco abuse Current Visit: Yes Status: Chronic Plan as above History of Present Illness Consult date: 06/29/16 Requesting physician: Shiela Rodriguez Reason for consult: other (requiring increasing O2) Chief complaint: abnormal outpatient stress test History of present illness: Mr. Fair, a 75yo male with Hx CAD and 15 pk-yr smoking (1/2 ppd x 30yrs) presented for outpatient stress test which had abnormal results. Subsequent LHC showed severe multi-vessel disease. Now day 4 s/p CABG x2. At baseline, patient required no home O2 nor did he have any inhalers or respiratory therapies. He required 15L high flow in post-op recovery, was weaned down to 5L NC yesterday. He began de-saturating and was transitioned to 10L high flow to maintain O2 sat 90+%. Patient admits to mild conversational dyspnea - 5+ word dyspnea. Productive cough. No hemoptysis. No headache, unusual weakness , or fever. Hx BPH, prostate ca s/p laser procedure and radiation. Past Med Surg Social Fam HX - Past Medical History Medical history: cancer, GERD, hyperlipidemia, hypertension Psychiatric history: no psych history - Social History Smoking Status: Current every day smoker Smokeless Tobacco Status: No Alcohol use: none Drug use: none Medications and Allergies Lisinopril [Zestril] 40 mg PO DAILY 02/14/15 [History] Oxaprozin [Daypro] 600 mg PO BID PRN 02/14/15 [History] Tamsulosin [Flomax] 0.4 mg PO DAILY 11/21/15 [History] Diltiazem CD (24hr) [Cardizem CD] 240 mg PO DAILY 11/22/15 [History] Aspirin [Lo-Dose Aspirin EC] 81 mg PO DAILY 01/27/16 [History] Multivit-Min/FA/Lycopen/Lutein [Men 50 Plus Multivitamin Tab] 1 tab PO DAILY [History] Oxybutynin [Ditropan] 5 mg PO DAILY PRN #30 tablet 01/27/16 [Rx] Ascorbate Calcium [Vitamin C] 1,000 mg PO DAILY 06/24/16 [History] Atorvastatin Calcium [Lipitor] 20 mg PO HS 06/24/16 [History] Vitamin A 10,000 unit PO DAILY 06/24/16 [History] Vitamin E 100 unit PO DAILY 06/24/16 [History] Allergies No Known Allergies Allergy (Verified 08/14/15 09:08) All Systems: A 10-system review of systems was performed and is negative for pertinent findings except as documented above in the HPI. - Constitutional Constitutional: no fever(s), no headache(s) - EENT Nose, mouth and throat: nasal congestion, no dizziness, no dry mouth, no dysphagia, no headache(s) - Cardiovascular Cardiovascular: dyspnea, no chest pain, no edema, no irregular heart rhythm, no leg edema, no lightheadedness, no palpitations, no syncope - Respiratory Respiratory: cough, no wheezing, no pain on inspirtation, no chest congestion - Gastrointestinal Gastrointestinal: no abdominal pain, no diarrhea, no heartburn, no hematemesis, no melena, no nausea, no vomiting Physical Examination Vital Signs: Vital Signs, Last 4 Hours Temp Pulse Resp BP Pulse Ox 06/29/16 16:27 99.3 F 06/29/16 16:00 79 21 145/74 95 06/29/16 15:31 16 94 06/29/16 15:00 79 23 159/69 95 06/29/16 14:00 79 20 153/72 90 06/29/16 13:00 79 20 153/69 91 General appearance: no acute distress, alert Eyes: nonicteric ENT: oropharynx moist Neck: supple Effort: mildly labored Auscultation: bilateral: diminished breath sounds, rales (BL lung bases) Cardiovascular: regular rate and rhythm Gastrointestinal: normoactive bowel sounds, soft, non-tender, non-distended Integumentary: normal Extremities: no cyanosis, no edema, pink and warm, pulses normal Musculoskeletal: no deformities normal mental status mood appropriate, affect normal Results - Laboratory Findings CBC and BMP: 06/29/16 03:40 06/29/16 03:40 ABG ABG pH 7.46 pH Units (7.32-7.45) H 06/27/16 01:25 ABG pCO2 31 mmHg (35-45) L 06/27/16 01:25 ABG pO2 57 mmHg (85-104) L 06/27/16 01:25 ABG O2 Saturation 91 % (95-98) L 06/27/16 01:25 PT/INR, D-dimer PT 14.0 Seconds (9.4-12.1) H 06/27/16 03:25 Abnormal lab findings: Abnormal lab results WBC 12.1 K/mcL (4.3-11.1) H 06/29/16 03:40 RBC 3.20 M/mcL (4.19-5.50) L 06/29/16 03:40 Hgb 9.8 g/dL (12.9-16.9) L 06/29/16 03:40 Hct 29.4 % (37.5-50.1) L 06/29/16 03:40 RDW 14.9 % (11.5-14.5) H 06/29/16 03:40 Plt Count 98 K/mcL (140-400) L 06/29/16 03:40 Band Neutrophils % 24.0 % (0-4) H 06/27/16 03:25 Neutrophils # 11.1 K/mcL (1.6-8.9) H 06/29/16 03:40 Lymphocytes # 0.4 K/mcL (0.6-4.6) L 06/29/16 03:40 Platelet Estimate Decreased (Normal) L 06/27/16 03:25 Large Platelets Present (Not Present) A 06/26/16 12:13 Immature Plt Fraction 7.2 % (1.1-6.1) H 06/29/16 03:40 Anisocytosis 1+ (Not Present) A 06/27/16 03:25 PT 14.0 Seconds (9.4-12.1) H 06/27/16 03:25 ABG pH 7.46 pH Units (7.32-7.45) H 06/27/16 01:25 ABG pCO2 31 mmHg (35-45) L 06/27/16 01:25 ABG pO2 57 mmHg (85-104) L 06/27/16 01:25 ABG O2 Saturation 91 % (95-98) L 06/27/16 01:25 Sodium 133 mEq/L (136-145) L 06/29/16 03:40 BUN 54 mg/dL (8-26) H 06/29/16 03:40 BUN/Creatinine Ratio 56 (6-26) H 06/29/16 03:40 Glucose 139 mg/dL (70-99) H 06/29/16 03:40 POC Glucose 180 (58-89) H 06/29/16 11:25 Hemoglobin A1c 5.8 % (-5.6) H 06/25/16 08:59 Triglycerides 174 mg/dL (< 150) H 06/25/16 08:59 LDL Cholesterol, Calc 100 mg/dL (0-99) H 06/25/16 08:59 VLDL Cholesterol, Calc 35 mg/dL (< 31) H 06/25/16 08:59 HDL Cholesterol 27 mg/dL (40-59) L 06/25/16 08:59 Cholesterol/HDL Ratio 6.0 (0-4.9) H 06/25/16 08:59 Urine Blood Small (Negative) H 06/26/16 16:34 Urine Microscopic RBC 5-15 per hpf (0-3) H 06/26/16 16:34 - Diagnostic Findings Chest x-ray: image reviewed Additional studies: TTE report reviewed - Clinical Findings Intake & Output: Intake & Output 06/29/16 06/29/16 06/29/16 07:59 15:59 23:59 Intake Total 480 / 480 Output Total 150 / 150 300 / 300 200 / 200 Balance -150 / -150 180 / 180 -200 / -200 Consult Discharge Plan - Plan Referrals: Mahendra Albert DO [Primary Care Provider] - <Amanda Wayne - Last Filed: 06/29/16 20:29> Date of Encounter: 06/29/16 All Systems: A 10-system review of systems was performed and is negative for pertinent findings except as documented above in the HPI. Physical Examination Vital Signs: Vital Signs, Last 4 Hours Temp Pulse Resp BP Pulse Ox 06/29/16 16:27 99.3 F 06/29/16 16:00 79 21 145/74 95 06/29/16 15:31 16 94 06/29/16 15:00 79 23 159/69 95 06/29/16 14:00 79 20 153/72 90 Results - Laboratory Findings CBC and BMP: 06/29/16 03:40 06/29/16 03:40 ABG ABG pH 7.46 pH Units (7.32-7.45) H 06/27/16 01:25 ABG pCO2 31 mmHg (35-45) L 06/27/16 01:25 ABG pO2 57 mmHg (85-104) L 06/27/16 01:25 ABG O2 Saturation 91 % (95-98) L 06/27/16 01:25 PT/INR, D-dimer PT 14.0 Seconds (9.4-12.1) H 06/27/16 03:25 Abnormal lab findings: Abnormal lab results WBC 12.1 K/mcL (4.3-11.1) H 06/29/16 03:40 RBC 3.20 M/mcL (4.19-5.50) L 06/29/16 03:40 Hgb 9.8 g/dL (12.9-16.9) L 06/29/16 03:40 Hct 29.4 % (37.5-50.1) L 06/29/16 03:40 RDW 14.9 % (11.5-14.5) H 06/29/16 03:40 Plt Count 98 K/mcL (140-400) L 06/29/16 03:40 Band Neutrophils % 24.0 % (0-4) H 06/27/16 03:25 Neutrophils # 11.1 K/mcL (1.6-8.9) H 06/29/16 03:40 Lymphocytes # 0.4 K/mcL (0.6-4.6) L 06/29/16 03:40 Platelet Estimate Decreased (Normal) L 06/27/16 03:25 Large Platelets Present (Not Present) A 06/26/16 12:13 Immature Plt Fraction 7.2 % (1.1-6.1) H 06/29/16 03:40 Anisocytosis 1+ (Not Present) A 06/27/16 03:25 PT 14.0 Seconds (9.4-12.1) H 06/27/16 03:25 ABG pH 7.46 pH Units (7.32-7.45) H 06/27/16 01:25 ABG pCO2 31 mmHg (35-45) L 06/27/16 01:25 ABG pO2 57 mmHg (85-104) L 06/27/16 01:25 ABG O2 Saturation 91 % (95-98) L 06/27/16 01:25 Sodium 133 mEq/L (136-145) L 06/29/16 03:40 BUN 54 mg/dL (8-26) H 06/29/16 03:40 BUN/Creatinine Ratio 56 (6-26) H 06/29/16 03:40 Glucose 139 mg/dL (70-99) H 06/29/16 03:40 POC Glucose 180 (58-89) H 06/29/16 11:25 Hemoglobin A1c 5.8 % (-5.6) H 06/25/16 08:59 Triglycerides 174 mg/dL (< 150) H 06/25/16 08:59 LDL Cholesterol, Calc 100 mg/dL (0-99) H 06/25/16 08:59 VLDL Cholesterol, Calc 35 mg/dL (< 31) H 06/25/16 08:59 HDL Cholesterol 27 mg/dL (40-59) L 06/25/16 08:59 Cholesterol/HDL Ratio 6.0 (0-4.9) H 06/25/16 08:59 Urine Blood Small (Negative) H 06/26/16 16:34 Urine Microscopic RBC 5-15 per hpf (0-3) H 06/26/16 16:34 - Clinical Findings Intake & Output: Intake & Output 06/29/16 06/29/16 06/29/16 07:59 15:59 23:59 Intake Total 480 / 480 Output Total 150 / 150 300 / 300 200 / 200 Balance -150 / -150 180 / 180 -200 / -200 - Attending Attestation I examined this patient and my medical decision-making was reviewed with the MAORI LIAISON ADVISER/PA/Advanced Practice Nurse/Resident Physician. I agree with the documented findings, disposition and treatment plan as described except to the extent set forth below. Patient seen and examined. Labs, radiology, chart personally reviewed. Agree with resident's history and physical, assessment, plan with following comments: [employer]: Patient follows commands, Pulmonary: acute hypoxic respiratory failure is multifactorial from atelectasis , probable underlying copd from long standing history of smoking tobacco and he stated he will not smoke again and possible pulmonary edema and most importantly his sick sinus syndrome. Will have him on bronchodilators and I don' t feel he needs systemic steroid for now and encourage IS with diuresis. Cardiovascular: stable with pacing GI: Nutrition per dietary and GI prophylaxis per routine Heme: DVT prophylaxis per routine Renal; urine out put and renal funtion reviewed Endorcine: blood glucose is monitored Lines: all lines checked and no evidence of infections Skin: skin care to prevent pressure ulcers per nursing routine care Thank you for the consult will continue follow up.
[2016-06-29] MEDS ORDERED: Furosemide 40 MG in 0.9 % Sodium Chloride 50 ML IVPB ONE (17:05)
[2016-06-29] MEDS: Budesonide/Formoterol 80/4.5 MDI IH SCH (20:04)
[2016-06-29] MEDS: Fluticasone Propionate Nasal 50 MCG/SPRAY BOTTLE NS SCH (20:47)
[2016-06-30 03:50] LABS: Hematocrit 27.1 % (37.5-50.1); Hemoglobin 9.3 g/dL (12.9-16.9); Mean Corpuscular HGB Conc 34.3 g/dL (31.6-35.5); Mean Corpuscular Hemoglobin 30.9 pg (28.0-33.3); Mean Platelet Volume 10.8 fL (9.4-12.4); Red Blood Count 3.01 M/mcL (4.19-5.50); Red Cell Distribution Width 14.6 % (11.5-14.5)
[2016-06-30 03:52] LABS: Platelet Count 96 K/mcL (140-400)
[2016-06-30 04:02] LABS: BUN/Creatinine Ratio 53 (6-26); Blood Urea Nitrogen 45 mg/dL (8-26); Calcium 9.2 mg/dL (8.6-10.8); Carbon Dioxide 24 mEq/L (19-29); Chloride 102 mEq/L (98-109); Glucose 155 mg/dL (70-99); Osmolality,Calculated 289 (280-300); Potassium 3.8 mEq/L (3.5-4.5); Sodium 132 mEq/L (136-145); eGFR For African Americans > 60 (> 60); eGFR For Non-African Americans > 60 (> 60)
[2016-06-30] MEDS: niCARdipine 20 MG/200 ML MLS IVC SCH ×3 (04:31→12:30)
[2016-06-30] MEDS: Nitroglycerin 25 MG/250 ML INFUS..BTL IVC SCH ×3 (04:31→20:57)
[2016-06-30] MEDS: *HR* HYDROcodone/Acet 5/325 mg TABLET PO PRN ×2 (05:43→12:49)
[2016-06-30] MEDS: Budesonide/Formoterol 80/4.5 MDI IH SCH ×2 (07:39→20:44)
--- NOTE | 2016-06-30 07:51 | Cardiothoracic Progress Note ---
Date of Encounter: 06/30/16 Time of Encounter: 07:49 - Assessment and plan (1) Prostate cancer Current Visit: No Status: Acute The patient will get a permanent pacemaker today. His renal function has returned to normal. His pulmonary function is markedly improved. Hopefully, he can be transferred to a room tomorrow. - Subjective Interval history: The patient has no complaints and is anxious to go home. He does request that we leave his Locke catheter and remove it several weeks after discharge. He has a history of prostate cancer and has seen urology and the Locke can be removed by urology or in my office. Vital Signs, Last 4 Hours Temp Pulse Resp BP Pulse Ox 06/30/16 06:00 80 18 155/68 95 06/30/16 05:00 80 24 151/68 93 06/30/16 04:39 99.2 F 06/30/16 04:16 80 06/30/16 04:00 80 18 147/61 92 06/30/16 03:51 16 130/68 92 Oxgyen Flow Rate Oxygen Flow Rate (LPM) 2 Weight 06/28/16 06/29/16 06/30/16 23:59 23:59 23:59 Weight 79.379 kg Lungs are clear to percussion and auscultation. Heart is in a paced rhythm. All incisions are healing well without signs of infection and the sternum is stable. - Labs 06/30/16 03:40 06/30/16 03:40 Lab Results, Last 24 hours 06/30/16 06/30/16 03:40 03:40 WBC 9.2 Hgb 9.3 L Hct 27.1 L Plt Count 96 L Sodium 132 L Potassium 3.8 Chloride 102 Carbon Dioxide 24 BUN 45 H Creatinine 0.85 Glucose 155 H Calcium 9.2 - VTE Documentation of Mechanical Device: Graduated compression elastic hosiery Consult Discharge Plan - Plan Referrals: Mahendra Albert DO [Primary Care Provider] -
[2016-06-30] MEDS ORDERED: ceFAZolin 2,000 MG in D5% in Water 100 ML IVPB ONE (09:00)
[2016-06-30] MEDS: Insulin LISPRO 300 UNITS/3 ML VIAL SQ SCH ×3 (09:48→20:02)
[2016-06-30] MEDS: Lisinopril 20 MG TABLET PO SCH (11:15)
[2016-06-30] MEDS: Multivit/Ca/Min/Fe/FA 1 TAB TABLET PO SCH (11:15)
[2016-06-30] MEDS: Aspirin Enteric Coated 81 MG Tablet PO SCH (11:15)
[2016-06-30] MEDS: Nicotine 14 MG PATCH.TD24 TD SCH (11:16)
[2016-06-30] MEDS: Chlorhexidine Rinse 15 ML MOUTHWASH MM SCH ×2 (11:20→19:57)
[2016-06-30 11:54] LABS: ABG Base Excess -0.4 mEq/L (-2.0 to 3.0); ABG Glucose 79 mg/dL (60-95); ABG Hematocrit 21 % (35-51); ABG Ionized Calcium 0.88 mmol/L (1.15-1.35); ABG Oxygen Saturation 100 % (95-98); ABG PCO2 37 mmHg (35-45); ABG PH 7.42 pH Units (7.32-7.45); ABG PO2 499 mmHg (85-104); ABG TCO2 25.1 mEq/L (20-26)
[2016-06-30 11:55] LABS: ABG Base Excess 1.8 mEq/L (-2.0 to 3.0); ABG Glucose 145 mg/dL (60-95); ABG HCO3 26.6 mEQ/L (21-27); ABG Hematocrit 22 % (35-51); ABG Ionized Calcium 0.97 mmol/L (1.15-1.35); ABG Oxygen Saturation 100 % (95-98); ABG PCO2 42 mmHg (35-45); ABG PH 7.41 pH Units (7.32-7.45); ABG PO2 422 mmHg (85-104); ABG TCO2 27.9 mEq/L (20-26)
[2016-06-30 11:55] LABS: ABG Base Excess -1.7 mEq/L (-2.0 to 3.0); ABG Glucose 89 mg/dL (60-95); ABG HCO3 22.9 mEQ/L (21-27); ABG Hematocrit 19 % (35-51); ABG Ionized Calcium 0.83 mmol/L (1.15-1.35); ABG Oxygen Saturation 97 % (95-98); ABG PCO2 37 mmHg (35-45); ABG PO2 94 mmHg (85-104)
[2016-06-30 11:56] LABS: ABG Base Excess 1.9 mEq/L (-2.0 to 3.0); ABG Glucose 159 mg/dL (60-95); ABG HCO3 26.6 mEQ/L (21-27); ABG Hematocrit 35 % (35-51); ABG Oxygen Saturation 100 % (95-98); ABG PCO2 41 mmHg (35-45); ABG PH 7.42 pH Units (7.32-7.45); ABG PO2 292 mmHg (85-104); ABG TCO2 27.9 mEq/L (20-26)
[2016-06-30 11:56] LABS: ABG Base Excess 1.3 mEq/L (-2.0 to 3.0); ABG Glucose 204 mg/dL (60-95); ABG HCO3 25.9 mEQ/L (21-27); ABG Hematocrit 18 % (35-51); ABG Ionized Calcium 0.93 mmol/L (1.15-1.35); ABG Oxygen Saturation 100 % (95-98); ABG PCO2 40 mmHg (35-45); ABG PH 7.42 pH Units (7.32-7.45); ABG PO2 553 mmHg (85-104); ABG TCO2 27.1 mEq/L (20-26)
[2016-06-30 11:57] LABS: ABG Base Excess -1.6 mEq/L (-2.0 to 3.0); ABG Glucose 135 mg/dL (60-95); ABG HCO3 24.3 mEQ/L (21-27); ABG Hematocrit 32 % (35-51); ABG Ionized Calcium 1.25 mmol/L (1.15-1.35); ABG Oxygen Saturation 97 % (95-98); ABG PCO2 45 mmHg (35-45); ABG PH 7.34 pH Units (7.32-7.45); ABG PO2 92 mmHg (85-104); ABG TCO2 25.7 mEq/L (20-26)
[2016-06-30 11:58] LABS: ABG Base Excess -0.6 mEq/L (-2.0 to 3.0); ABG Glucose 151 mg/dL (60-95); ABG HCO3 25.8 mEQ/L (21-27); ABG Hematocrit 36 % (35-51); ABG Ionized Calcium 1.33 mmol/L (1.15-1.35); ABG Oxygen Saturation 98 % (95-98); ABG PCO2 49 mmHg (35-45); ABG PH 7.33 pH Units (7.32-7.45); ABG PO2 112 mmHg (85-104); ABG TCO2 27.3 mEq/L (20-26)
[2016-06-30] MEDS: Fluticasone Propionate Nasal 50 MCG/SPRAY BOTTLE NS SCH (12:30)
--- NOTE | 2016-06-30 15:15 | Pulmonology Progress Note ---
<Angel Luis Hurt - Last Filed: 06/30/16 15:18> Date of Encounter: 06/30/16 Time of Encounter: 14:30 Assessment and Plan (1) Atelectasis of both lungs Current Visit: Yes Status: Acute 1. Atelectasis of both lungs - Continue albuterol inhaler - Continue incentive spirometry 6x/hr while awake - Continue supplemental O2 PRN - Continue symbicort inhaler - Continue flonase - Will continue to monitor 2. Sick sinus syndrome Cardiology following: All rate limiting medications d/c'd. Temporary transvenous pacer in place. Transcutaneous pads in place as backup. Plan for permanent pacemaker placement today. Agree with current management and plan. Appreciate cardiology following. 3. s/p CABG x2 Op date 06/25/16. Cardiothoracic following. Agree with current management and plan. Appreciate cardiothoracic following. 4. CAD Cardiology following. Agree with current management and plan. Appreciate cardiology following. 5. Tobacco dependence 1/2 PPD x 30yrs No previous dependence upon home O2 or breathing treatments. Patient is ready to quit; states he, "quit the day of his stress test." Nicotene patch in place. (2) Sick sinus syndrome Current Visit: Yes Status: Acute Plan as above. (3) S/P CABG x 2 Current Visit: Yes Status: Acute Plan as above. (4) CAD (coronary artery disease) Current Visit: Yes Status: Acute Plan as above. Qualifiers: Coronary Disease-Associated Artery/Lesion type: [place] artery [place] vs. transplanted heart: [place] heart Associated angina: with unspecified angina Qualified Code(s): I25.119 - Atherosclerotic heart disease of [place] coronary artery with unspecified angina pectoris (5) Tobacco abuse Current Visit: Yes Status: Chronic Plan as above. Subjective Principal diagnosis: CAD s/p CABG Interval history: Mr. Fair remains pleasant and comfortable. No dyspnea on 2L NC. He is hungry but is looking forward to receiving his permanent pacemaker and going home. He notes decreased nasal congestion and improved breathing. Neither he nor his at bedside have any questions at this time. Objective PUL Vital signs: Last Vital Signs Temp 99.3 F 06/30/16 12:52 Pulse 79 06/30/16 14:00 Resp 14 06/30/16 14:00 BP 145/59 06/30/16 14:00 Pulse Ox 91 06/30/16 14:00 General appearance: no acute distress, alert Eyes: nonicteric ENT: oropharynx moist Neck: supple Effort: normal Auscultation: bilateral: wheezes Cardiovascular: regular rate and rhythm Gastrointestinal: normoactive bowel sounds, soft, non-tender, non-distended Integumentary: normal, other (Sternal scar with clean bandage s/p CABG.) Extremities: no cyanosis, no edema, pink and warm, pulses normal Musculoskeletal: no deformities normal mental status mood appropriate, affect normal Results - Laboratory Findings CBC and BMP: 06/30/16 03:40 06/30/16 03:40 ABG ABG pH 7.46 pH Units (7.32-7.45) H 06/27/16 01:25 ABG pCO2 31 mmHg (35-45) L 06/27/16 01:25 ABG pO2 57 mmHg (85-104) L 06/27/16 01:25 ABG O2 Saturation 91 % (95-98) L 06/27/16 01:25 PT/INR, D-dimer PT 14.0 Seconds (9.4-12.1) H 06/27/16 03:25 Abnormal lab findings: Abnormal lab results RBC 3.01 M/mcL (4.19-5.50) L 06/30/16 03:40 Hgb 9.3 g/dL (12.9-16.9) L 06/30/16 03:40 Hct 27.1 % (37.5-50.1) L 06/30/16 03:40 RDW 14.6 % (11.5-14.5) H 06/30/16 03:40 Plt Count 96 K/mcL (140-400) L 06/30/16 03:40 Band Neutrophils % 24.0 % (0-4) H 06/27/16 03:25 Neutrophils # 11.1 K/mcL (1.6-8.9) H 06/29/16 03:40 Lymphocytes # 0.4 K/mcL (0.6-4.6) L 06/29/16 03:40 Platelet Estimate Decreased (Normal) L 06/27/16 03:25 Large Platelets Present (Not Present) A 06/26/16 12:13 Immature Plt Fraction 7.2 % (1.1-6.1) H 06/29/16 03:40 Anisocytosis 1+ (Not Present) A 06/27/16 03:25 PT 14.0 Seconds (9.4-12.1) H 06/27/16 03:25 ABG pH 7.46 pH Units (7.32-7.45) H 06/27/16 01:25 ABG pCO2 31 mmHg (35-45) L 06/27/16 01:25 ABG pO2 57 mmHg (85-104) L 06/27/16 01:25 ABG O2 Saturation 91 % (95-98) L 06/27/16 01:25 ABG Hematocrit 21 % (35-51) L 06/26/16 10:19 Ionized Calcium 0.88 mmol/L (1.15-1.35) L 06/26/16 10:19 Sodium 132 mEq/L (136-145) L 06/30/16 03:40 BUN 45 mg/dL (8-26) H 06/30/16 03:40 BUN/Creatinine Ratio 53 (6-26) H 06/30/16 03:40 Glucose 155 mg/dL (70-99) H 06/30/16 03:40 POC Glucose 127 (58-89) H 06/30/16 12:32 Hemoglobin A1c 5.8 % (-5.6) H 06/25/16 08:59 Triglycerides 174 mg/dL (< 150) H 06/25/16 08:59 LDL Cholesterol, Calc 100 mg/dL (0-99) H 06/25/16 08:59 VLDL Cholesterol, Calc 35 mg/dL (< 31) H 06/25/16 08:59 HDL Cholesterol 27 mg/dL (40-59) L 06/25/16 08:59 Cholesterol/HDL Ratio 6.0 (0-4.9) H 06/25/16 08:59 Urine Blood Small (Negative) H 06/26/16 16:34 Urine Microscopic RBC 5-15 per hpf (0-3) H 06/26/16 16:34 - Clinical Findings Intake & Output: Intake & Output 06/29/16 06/30/16 06/30/16 23:59 07:59 15:59 Intake Total 250 / 250 250 / 250 Output Total 900 / 900 650 / 650 400 / 400 Balance -650 / -650 -650 / -650 -150 / -150 - VTE Documentation of Mechanical Device: Graduated compression elastic hosiery Consult Discharge Plan - Plan Referrals: Darlin Lynch MD [Partnered Physician] - 07/15/16 7:30 am Mahendra Albert DO [Primary Care Provider] - <Amanda Wayne - Last Filed: 06/30/16 16:33> Date of Encounter: 06/30/16 Objective PUL Vital signs: Last Vital Signs Temp 99.3 F 06/30/16 12:52 Pulse 79 06/30/16 16:00 Resp 14 06/30/16 16:00 BP 144/78 06/30/16 16:00 Pulse Ox 91 06/30/16 16:00 Results - Laboratory Findings CBC and BMP: 06/30/16 03:40 06/30/16 03:40 ABG ABG pH 7.46 pH Units (7.32-7.45) H 06/27/16 01:25 ABG pCO2 31 mmHg (35-45) L 06/27/16 01:25 ABG pO2 57 mmHg (85-104) L 06/27/16 01:25 ABG O2 Saturation 91 % (95-98) L 06/27/16 01:25 PT/INR, D-dimer PT 14.0 Seconds (9.4-12.1) H 06/27/16 03:25 Abnormal lab findings: Abnormal lab results RBC 3.01 M/mcL (4.19-5.50) L 06/30/16 03:40 Hgb 9.3 g/dL (12.9-16.9) L 06/30/16 03:40 Hct 27.1 % (37.5-50.1) L 06/30/16 03:40 RDW 14.6 % (11.5-14.5) H 06/30/16 03:40 Plt Count 96 K/mcL (140-400) L 06/30/16 03:40 Band Neutrophils % 24.0 % (0-4) H 06/27/16 03:25 Neutrophils # 11.1 K/mcL (1.6-8.9) H 06/29/16 03:40 Lymphocytes # 0.4 K/mcL (0.6-4.6) L 06/29/16 03:40 Platelet Estimate Decreased (Normal) L 06/27/16 03:25 Large Platelets Present (Not Present) A 06/26/16 12:13 Immature Plt Fraction 7.2 % (1.1-6.1) H 06/29/16 03:40 Anisocytosis 1+ (Not Present) A 06/27/16 03:25 PT 14.0 Seconds (9.4-12.1) H 06/27/16 03:25 ABG pH 7.46 pH Units (7.32-7.45) H 06/27/16 01:25 ABG pCO2 31 mmHg (35-45) L 06/27/16 01:25 ABG pO2 57 mmHg (85-104) L 06/27/16 01:25 ABG O2 Saturation 91 % (95-98) L 06/27/16 01:25 ABG Hematocrit 21 % (35-51) L 06/26/16 10:19 Ionized Calcium 0.88 mmol/L (1.15-1.35) L 06/26/16 10:19 Sodium 132 mEq/L (136-145) L 06/30/16 03:40 BUN 45 mg/dL (8-26) H 06/30/16 03:40 BUN/Creatinine Ratio 53 (6-26) H 06/30/16 03:40 Glucose 155 mg/dL (70-99) H 06/30/16 03:40 POC Glucose 127 (58-89) H 06/30/16 12:32 Hemoglobin A1c 5.8 % (-5.6) H 06/25/16 08:59 Triglycerides 174 mg/dL (< 150) H 06/25/16 08:59 LDL Cholesterol, Calc 100 mg/dL (0-99) H 06/25/16 08:59 VLDL Cholesterol, Calc 35 mg/dL (< 31) H 06/25/16 08:59 HDL Cholesterol 27 mg/dL (40-59) L 06/25/16 08:59 Cholesterol/HDL Ratio 6.0 (0-4.9) H 06/25/16 08:59 Urine Blood Small (Negative) H 06/26/16 16:34 Urine Microscopic RBC 5-15 per hpf (0-3) H 06/26/16 16:34 - Clinical Findings Intake & Output: Intake & Output 06/30/16 06/30/16 06/30/16 07:59 15:59 23:59 Intake Total 250 / 250 Output Total 650 / 650 400 / 400 Balance -650 / -650 -150 / -150 - Attending Attestation I examined this patient and my medical decision-making was reviewed with the NURSERY HAND/PA/Advanced Practice Nurse/Resident Physician. I agree with the documented findings, disposition and treatment plan as described except to the extent set forth below. Patient seen and examined. Labs, radiology, chart personally reviewed. 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 Continue with IS and bronchodilators. Cardiovascular: stable and will have pacemaker, which I feel it will help his breathing. GI: Nutrition per dietary and GI prophylaxis per routine Discussed with Dr. Stevenson and thanks for the consult. Please call with any questions.
[2016-06-30] MEDS ORDERED: 0.9 % Sodium Chloride 500 ML ONE (16:05)
[2016-06-30] MEDS ORDERED: D5% in Water (Mini-Bag+) 0 ML IVPB ONE (16:06)
[2016-06-30] MEDS ORDERED: Water for inj. (sterile) 10 ML IV ONE (16:06)
[2016-06-30] MEDS ORDERED: *HR* Midazolam HCl 2 MG/2 ML VIAL ONE (16:46)
[2016-06-30] MEDS ORDERED: 0.9 % Sodium Chloride 1,000 ML ONE (16:47)
[2016-06-30] MEDS ORDERED: *HR* FentaNYL (PF) 100 MCG/2 ML VIAL ONE (16:47)
--- NOTE | 2016-06-30 18:03 | Pre-Sedation Evaluation ---
Pre-sedation evaluation - Pre-sedation checklist Date of procedure: 06/26/16 Procedure: [facility] Recent Vitals: Last Vital Signs Temp 99.3 F 06/30/16 12:52 Pulse 79 06/30/16 16:00 Resp 14 06/30/16 16:00 BP 144/78 06/30/16 16:00 Pulse Ox 91 06/30/16 16:00 H&P (including ROS) documented in medical record: Yes Previous reaction to sedatives/anesthetics: No Dietary Status: NPO after Midnight Airway Assessment: Patient can open mouth completely, TMJ function normal, Micrognathia (under-bite, receding chin) absent Dentition: No loose teeth or bridges Possible difficult airway: No ASA Classification *see protocol: CLASS III-Severe systemic disease Plan of Care: Pt appropriate candidate for procedure/moderate/conscious sedation , Risks/benefits of procedure/sedation discussed w/ patient/family
[2016-06-30] MEDS ORDERED: Furosemide 40 MG/4 ML VIAL IVP ONE (18:21)
--- NOTE | 2016-06-30 18:24 | Invasive Diagnostic Lab ---
Dual Chamber Pacemaker Insertion Name: Sam Fair Date of Study: 06/30/2016 Date: 1940 Ht: 175.0 cm / 68.9 in Medical Record#: [id number] Age: 75 Wt: 79.0 kg / 174.2 lb Gender: Male BSA: 1.95 Location: Fluoro Dose: 34 mGy BMI: 25.8 Performing MD: Memo Lynch MD, [facility] Procedures Performed: Procedure PM INSERTION DUAL LEADS Indications: Description Sick Sinus Syndrome Impressions: * Successful implant of dual chamber pacemaker generator. Degree of difficulty was moderate. Appropriate functionality was observed at the end of the case. Procedure completed without incident. Recommendations: The patient will follow-up in 4-6 weeks for a post-pacemaker interrogation and evaluation with their [employer]. Procedure Description: After informed consent was obtained, the patient was brought to the laboratory in the fasting, post absorptive state. The left subclavicular region was prepped and draped in sterile fashion. Local anesthesia was performed using 1% Lidocaine. A 4cm incision was created two fingerbreadths below and parallel to the clavicle and carried down to the prepectoral fascia. At that level, a pocket was created to accomodate and size the hardware. This portion of the procedure used sharp dissection, blunt dissection and electrocautery. Venous access was obtained using a dual axillary vein stick with the modified Seldinger technique using two 7 Fr. Safe sheaths. The right ventricular lead was manipulated under direct fluoroscopy to find a physically stable and electrically optimal location in the RV [place]. Next, the right atrial lead was placed and again manipulated under direct fluoroscopy to find a physically stable electrically optimal location in the RA appendage. Hemostasis was obtained. The pocket was copiously irrigated with antibiotic solution. The device was connected to the leads in standard fashion and set screws deployed. The device was placed in the pocket. No anchoring sutures were placed. The wound was closed in layers starting with 2-0 Vicryl for the deep layer and 4-0 Vicryl for the skin. Steri-Strips were placed and 4x4s secured with tape. The patient tolerated the procedure well. Complications: None Disposition: The patient was returned to the recovery room. Patient will be scheduled to have a follow-up wound check in one week here at [facility]. PPM Device Information: Stone Sandblaster Model Name Model No. Serial No. TrackDuck Accolade [id number] PPM Lead(s) Information: Stone Sandblaster Model Name Model No. Serial No. Placement [facility] INGEVITY MRI 7741 52-cm [id number] RV [place] ANT Farm MRI 7740 45-cm [id number] RA appendage Device Measurement Data: Sensing (mV) Threshold (V) / (msec) Impedance (Ohms) Atrial Lead 1.2 1 / 0.5 554 RV Lead 5.6 0.5 / 0.5 735 LV Lead Device Settings: MODE: DDDR Lower Rate: 60 bpm VENKATA Delay: 180 msec Upper Rate: 130 bpm PAV Delay: 150 msec Procedure Medications: Time Medication Dose Unit Route 04:53 PM Nitroglycerin 0.5 mcg/kg/min Intravenous 04:57 PM Oxygen 6 L/min nasal cannula 04:59 PM Versed 1 Mg Intravenous 04:59 PM Fentanyl 25 Mcg Intravenous 05:00 PM 0.9NaCl 25 ml/hr Intravenous 05:08 PM Oxygen 8 L/min Simple face mask 05:09 PM Oxygen 10 L/min simple face mask 05:14 PM Oxygen 15 L/min non rebreather 05:17 PM Lidocaine 2% 7 mL Subcutaneous 05:21 PM Lidocaine 2% 5 mL Subcutaneous 05:22 PM Oxygen 100 % 100% non rebreather mask 04:53 PM Ancef 2 gram Intravenous Contrast: Isovue 34 ml. Complications: No complications occurred during the procedure. Complication None Updated by Memo Lynch MD, FACC on 06/30/2016 6:18:42 PM electronically signed on 06/30/2016 6:20:19 PM with status of Final
[2016-06-30] MEDS: *HR* Amiodarone 200 MG TABLET PO SCH (19:59)
[2016-06-30] MEDS: ceFAZolin 2,000 MG in D5% in Water 100 ML IVPB SCH (23:58)
[2016-07-01 04:39] LABS: Eosinophils % 0.4 %; Hemoglobin 8.7 g/dL (12.9-16.9)
[2016-07-01 04:42] LABS: Basophils % 0.1 %; Hematocrit 26.1 % (37.5-50.1); Immature Granulocytes % 0.4 % (0-4); Immature Platelets 6.2 % (1.1-6.1); Lymphocytes # 0.3 K/mcL (0.6-4.6); Lymphocytes % 3.6 %; Mean Corpuscular HGB Conc 33.3 g/dL (31.6-35.5); Mean Corpuscular Hemoglobin 30.3 pg (28.0-33.3); Mean Corpuscular Volume 90.9 fL (83.0-100.0); Mean Platelet Volume 10.4 fL (9.4-12.4); Monocytes # 0.5 K/mcL (0.0-1.3); Monocytes % 5.8 %; Neutrophils # 8.3 K/mcL (1.6-8.9); Platelet Count 105 K/mcL (140-400); Red Blood Count 2.87 M/mcL (4.19-5.50); Red Cell Distribution Width 14.5 % (11.5-14.5); Segmented Neutrophils % 89.7 %
[2016-07-01 04:53] LABS: BUN/Creatinine Ratio 43 (6-26); Blood Urea Nitrogen 39 mg/dL (8-26); Carbon Dioxide 24 mEq/L (19-29); Chloride 100 mEq/L (98-109); Glucose 202 mg/dL (70-99); Osmolality,Calculated 287 (280-300); Potassium 3.7 mEq/L (3.5-4.5); Sodium 131 mEq/L (136-145); eGFR For African Americans > 60 (> 60); eGFR For Non-African Americans > 60 (> 60)
[2016-07-01] MEDS: niCARdipine 20 MG/200 ML MLS IVC SCH ×3 (07:06→07:25)
[2016-07-01] MEDS: Insulin LISPRO 300 UNITS/3 ML VIAL SQ SCH ×5 (07:07→18:15)
[2016-07-01] MEDS: Nitroglycerin 25 MG/250 ML INFUS..BTL IVC SCH (07:08)
[2016-07-01] MEDS: Nicotine 14 MG PATCH.TD24 TD SCH ×2 (07:16→07:55)
[2016-07-01] MEDS: ceFAZolin 2,000 MG in D5% in Water 100 ML IVPB SCH (07:17)
[2016-07-01] MEDS: Lisinopril 20 MG TABLET PO SCH ×2 (07:18→07:55)
[2016-07-01] MEDS: Multivit/Ca/Min/Fe/FA 1 TAB TABLET PO SCH ×2 (07:18→07:55)
--- NOTE | 2016-07-01 07:18 | Cardiothoracic Progress Note ---
Date of Encounter: 07/01/16 Time of Encounter: 07:16 - Assessment and plan (1) Prostate cancer Current Visit: No Status: Acute We will transfer the patient to the floor. The patient requests that we leave the [place] until discharge. I will start low-dose Lasix for mild fluid overload present on chest x-ray. - Subjective Interval history: The patient has no complaints and is anxious to be discharged. Vital Signs, Last 4 Hours Temp Pulse Resp BP Pulse Ox 07/01/16 07:00 78 18 146/57 99 07/01/16 06:00 78 18 135/54 97 07/01/16 05:00 78 22 141/60 97 07/01/16 04:38 98.5 F 07/01/16 04:30 77 23 132/50 98 07/01/16 04:26 19 122/73 98 Oxgyen Flow Rate Oxygen Flow Rate (LPM) 2 Weight 06/29/16 06/30/16 07/01/16 23:59 23:59 23:59 Weight 80.785 kg Lungs are clear to percussion and auscultation. Heart is in a regular rate and rhythm. All incisions are healing well without signs of infection and the sternum is stable. Chest x-ray reveals good pacemaker lead placement and no pneumothorax. - Labs 07/01/16 04:25 07/01/16 04:25 Lab Results, Last 24 hours 07/01/16 07/01/16 04:25 04:25 WBC 9.3 Hgb 8.7 L Hct 26.1 L Plt Count 105 L Sodium 131 L Potassium 3.7 Chloride 100 Carbon Dioxide 24 BUN 39 H Creatinine 0.90 Glucose 202 H Calcium 9.0 - VTE Documentation of Mechanical Device: Graduated compression elastic hosiery Consult Discharge Plan - Plan Referrals: Darlin Lynch MD [Partnered Physician] - 07/15/16 7:30 am Mahendra Albert DO [Primary Care Provider] -
[2016-07-01] MEDS: Aspirin Enteric Coated 81 MG Tablet PO SCH ×2 (07:19→07:51)
[2016-07-01] MEDS: *HR* Amiodarone 200 MG TABLET PO SCH ×2 (07:19→07:53)
[2016-07-01] MEDS: Chlorhexidine Rinse 15 ML MOUTHWASH MM SCH ×3 (07:25→22:41)
[2016-07-01] MEDS: Fluticasone Propionate Nasal 50 MCG/SPRAY BOTTLE NS SCH ×2 (07:26→07:54)
[2016-07-01] MEDS ORDERED: D5% in Water 1,000 ML IVC PRN (07:30)
[2016-07-01] MEDS ORDERED: Ondansetron 4 MG/2 ML VIAL IVP PRN (07:30)
[2016-07-01] MEDS ORDERED: Naloxone 0.4 MG/ML INJ IVP PRN (07:30)
[2016-07-01] MEDS ORDERED: *HR* Morphine 2 MG/ML SYRINGE IVP PRN (07:30)
[2016-07-01] MEDS ORDERED: *HR* HYDROcodone/Acet 5/325 mg TABLET PO PRN (07:30)
[2016-07-01] MEDS ORDERED: Mag Hydrox/Al Hydrox/Simeth 30 ML UDC PO PRN (07:30)
[2016-07-01] MEDS ORDERED: *HR* Dextrose 50 % in Water (Syg) 50 ML SYRINGE IVP PRN (07:30)
[2016-07-01] MEDS ORDERED: *HR* Promethazine 25 MG/ML VIAL IVP PRN (07:30)
[2016-07-01] MEDS ORDERED: Dextrose Gel 15 GM PO PRN ×2 (07:30)
[2016-07-01] MEDS: Budesonide/Formoterol 80/4.5 MDI IH SCH ×2 (07:53→22:23)
[2016-07-01] MEDS: Furosemide 20 MG/2 ML VIAL IVP SCH ×2 (07:55→22:41)
--- NOTE | 2016-07-01 08:54 | Cardiology Progress Note ---
Date of Encounter: 07/01/16 Time of Encounter: 08:30 Assessment and Plan (1) Sick sinus syndrome Current Visit: Yes Status: Acute 2v CABG, post-op day #5. s/p implant dual chamber PPM on 06/30/16. Dx: SSS CXR yesterday post procedure and again this AM demonstrated stable chest--no pneumothorax. Normal device check per [place] [employer] rep this AM. Post PPM discharge instructions discussed including care of site and restrictions. May remove dressing in AM--no oozing, hematoma, or bleeding noted at site. Cardiology will sign-off, please call with questions. Follow-up with [facility] as scheduled. (2) CAD (coronary artery disease) Current Visit: Yes Status: Acute Per cardiology: Abnormal stress test 06/24/16, directly admitted from stress lab. [facility] 06/24/16: 80% pLAD, 99% mLAD, 90% dLAD, 99% diagonal 1, 99% prox-distal LCx, 100% OM 1 with left to left collaterals, 99% OM 2, 50% pRCA. TTE 06/25/16: EF 40-45% with regional wall motion abnormalities, mild AR, mild MR , mild LVDD 2v CABG on 06/26/[address] Stevenson--ALEJANDRO to LAD, SVG-Om. Continue asa and statin. Coreg resumed. Qualifiers: Coronary Disease-Associated Artery/Lesion type: [place] artery [place] vs. transplanted heart: [place] heart Associated angina: with unspecified angina Qualified Code(s): I25.119 - Atherosclerotic heart disease of [place] coronary artery with unspecified angina pectoris Discussion w patient/family: The assessment and plan as outlined above was discussed with the patient and/or family members who expressed understanding and agreement. All questions were answered. Thank you for involving us in the care of your patient. Please call with any questions. The patient will be discussed and reviewed with ; Cardiology will sign- off, please call with questions. Subjective Principal diagnosis: CAD s/p CABG Interval history: Seen and examined, at bedside. s/p PPM implant yesterday. Plan to step down to 2N today. He has no complaints this morning upon exam. Reports mild soreness at left upper chest wall PPM implant site. Objective Vital Signs, Last 4 Hours Pulse Resp BP Pulse Ox 07/01/16 08:00 78 20 121/52 96 07/01/16 07:53 16 99 07/01/16 07:00 78 18 146/57 99 07/01/16 06:00 78 18 135/54 97 07/01/16 05:00 78 22 141/60 97 General: Conversant, No Apparent Distress HEENT: Atraumatic, Normocephaly, Mucus Membranes Moist Cardiac: Reg Rate and Rhythm (paced) Lungs: Other (Diminished bibasilar) Neuro: Alert and responsive Abdomen: Soft Skin: Other (mid-sternal dressing--CDI/ Left upper chest wall PPM--dressing CDI) Extremities: No Edema, Normal Pulses Results 07/01/16 04:25 07/01/16 04:25 Lab Results 07/01/16 07/01/16 04:25 04:25 WBC 9.3 Hgb 8.7 L Hct 26.1 L Plt Count 105 L Sodium 131 L Potassium 3.7 Chloride 100 Carbon Dioxide 24 BUN 39 H Creatinine 0.90 Glucose 202 H Calcium 9.0 Active Medications Acetaminophen/Hydrocodone Bitart ([place] 5-325 Mg) 1 tab PO Q4HR PRN PRN Reason: Pain Stop: 12/27/16 08:31 Al Hydrox/Mg Hydrox/Simethicone (Maalox) 30 ml PO Q2HR PRN; Protocol PRN Reason: Indigestion Stop: 12/27/16 20:42 Albuterol Sulfate (Albuterol Inhaler) 2 puff IH [id number] [facility] Stop: 12/26/16 16:01 Last Admin: 07/01/16 07:54 Dose: 2 puff Amiodarone HCl (Cordarone) 200 mg PO DAILY [facility] Stop: 12/30/16 18:31 Last Admin: 07/01/16 07:53 Dose: Not Given Aspirin (Aspirin Ec) 81 mg PO DAILY [facility] Stop: 12/25/16 09:01 Last Admin: 07/01/16 07:51 Dose: Not Given Atorvastatin Calcium (Lipitor) 80 mg PO HS [facility] Stop: 12/24/16 21:01 Bisacodyl (Dulcolax) 10 mg RC ONCE ONE Stop: 07/01/16 15:10 Budesonide/Formoterol Fumarate (Symbicort) 2 puff IH BIDR [facility] PRN Reason: Protocol Stop: 12/29/16 22:01 Last Admin: 07/01/16 07:53 Dose: 2 puff Carvedilol (Coreg) 12.5 mg PO BIDWM BOYD PRN Reason: Protocol Stop: 12/31/16 08:01 Last Admin: 07/01/16 07:51 Dose: Not Given Chlorhexidine Gluconate (Chlorhexidine Rinse) 15 ml MM BID [facility] Stop: 12/26/16 21:01 Last Admin: 07/01/16 07:53 Dose: Not Given Dextrose/Water (Dextrose 50% (Syg)) 25 ml IVP AD PRN PRN Reason: Hypoglycemia Stop: 12/27/16 08:32 Docusate Sodium (Colace) 100 mg PO BID [facility] Stop: 12/26/16 21:01 Last Admin: 07/01/16 08:16 Dose: 100 mg Fluticasone Propionate (Flonase) 50 mcg NS DAILY BOYD PRN Reason: Protocol Stop: 12/29/16 17:16 Last Admin: 07/01/16 07:54 Dose: Not Given Furosemide (Lasix) 20 mg IVP BID [facility] Stop: 12/31/16 09:01 Last Admin: 07/01/16 07:55 Dose: Not Given Glucagon (Glucagen) 1 mg IM ONCE PRN PRN Reason: Hypoglycemia Stop: 12/27/16 08:32 Glucose (Gluctose) 15 gm PO ONCE PRN PRN Reason: Hypoglycemia Stop: 12/27/16 08:32 Glucose (Gluctose) 30 gm PO ONCE PRN PRN Reason: Hypoglycemia Stop: 12/27/16 08:32 Heparin Sodium (Porcine) (Heparin) 5,000 unit SQ Q12HCO [facility] Stop: 12/31/16 18:01 Dextrose (Dextrose 5%) 1,000 mls @ 100 mls/hr IVC .Q10H PRN PRN Reason: HYPOGLYCEMIA Stop: 12/27/16 08:32 Insulin Human Lispro (Humalog) 0 units SQ HS [facility] PRN Reason: Protocol Stop: 12/27/16 21:01 Insulin Human Lispro (Humalog) 0 units SQ TIDAC [facility] PRN Reason: Protocol Stop: 12/27/16 11:31 Last Admin: 07/01/16 07:51 Dose: Not Given Lisinopril (Zestril) 40 mg PO DAILY [facility] PRN Reason: Protocol Stop: 12/27/16 09:01 Last Admin: 07/01/16 07:55 Dose: Not Given Morphine Sulfate (Morphine Sulfate) 2 mg IVP Q1H PRN PRN Reason: Moderate Pain Stop: 12/26/16 12:25 Multivitamins/Calcium (Thera M Plus) 1 tab PO DAILY [facility] Stop: 12/25/16 09:01 Last Admin: 07/01/16 07:55 Dose: Not Given Naloxone HCl (Narcan) 0.4 mg IVP Q2MIN PRN PRN Reason: Opioid Reversal Stop: 12/24/16 14:48 Nicotine (Nicoderm) 14 mg TD DAILY [facility] PRN Reason: Protocol Stop: 12/26/16 12:25 Last Admin: 07/01/16 07:55 Dose: Not Given Omeprazole (Prilosec) 40 mg PO DAILY@0630 [facility] PRN Reason: Protocol Stop: 12/31/16 06:31 Ondansetron HCl (Zofran) 4 mg IVP Q6H PRN PRN Reason: Nausea And Vomiting Stop: 12/26/16 12:25 Oxybutynin Chloride (Ditropan) 5 mg PO DAILY PRN; Protocol PRN Reason: Bladder Spasms Stop: 12/25/16 09:01 Oxybutynin Chloride (Ditropan) 5 mg PO BID [facility] PRN Reason: Protocol Stop: 12/24/16 21:01 Last Admin: 07/01/16 07:54 Dose: Not Given Promethazine HCl (Phenergan) 12.5 mg IVP Q6HR PRN PRN Reason: Nausea And Vomiting Stop: 12/26/16 12:25 Tamsulosin HCl (Flomax) 0.4 mg PO BID [facility] PRN Reason: Protocol Stop: 12/24/16 21:01 Last Admin: 07/01/16 07:54 Dose: Not Given - Imaging and Cardiology Stress Test: report reviewed Echo: report reviewed Cardiac cath: report reviewed Other Results: 12 hour tele: avg HR=77. Paced at times - EKG Interpretation EKG results cardiology: personally reviewed - VTE Documentation of Mechanical Device: Graduated compression elastic hosiery Consult Discharge Plan - Plan Referrals: Darlin Lynch MD [Partnered Physician] - 07/15/16 7:30 am Mahendra Albert DO [Primary Care Provider] - Cardiology [facility] [Provider Group] ([facility]: 07/09/16 at 9:00 AM for wound check [facility]: 08/07/16 at 9:00 AM for device check)
[2016-07-01] MEDS ORDERED: Furosemide 20 MG/2 ML VIAL IVP SCH (09:00)
--- NOTE | 2016-07-01 12:41 | Pulmonology Progress Note ---
<Angel Luis Hurt - Last Filed: 07/01/16 12:37> Date of Encounter: 07/01/16 Time of Encounter: 08:00 Assessment and Plan (1) Atelectasis of both lungs Current Visit: Yes Status: Acute 1. Atelectasis of both lungs Substantially improved vs yesterday both on auscultation, on CXR, and as evidenced by patient supplemental O2 requirements. Patient currently on 2L via NC and being weaned to RA. - Continue albuterol inhaler - Continue incentive spirometry 6x/hr while awake - Continue supplemental O2 PRN - Continue symbicort inhaler - Continue flonase - Will continue to monitor 2. Sick sinus syndrome As per cardiology. Permanent pacemaker placed yesterday. Anticipate transfer to medical tele floor today. 3. s/p CABG x2 Op date 06/25/16. Cardiothoracic following. Agree with current management and plan. 4. CAD Cardiology following. Agree with current management and plan. 5. Tobacco dependence 1/2 PPD x 30yrs No previous dependence upon home O2 or breathing treatments. Patient is ready to quit; states he, "quit the day of his stress test." Nicotene patch in place. (2) Sick sinus syndrome Current Visit: Yes Status: Acute Plan as above. (3) S/P CABG x 2 Current Visit: Yes Status: Acute Plan as above. (4) CAD (coronary artery disease) Current Visit: Yes Status: Acute Plan as above. Qualifiers: Coronary Disease-Associated Artery/Lesion type: [place] artery [place] vs. transplanted heart: [place] heart Associated angina: with unspecified angina Qualified Code(s): I25.119 - Atherosclerotic heart disease of [place] coronary artery with unspecified angina pectoris (5) Tobacco abuse Current Visit: Yes Status: Chronic Plan as above. Subjective Principal diagnosis: CAD s/p CABG Interval history: Mr. Fair remains pleasant and comfortable. No dyspnea on 2L NC; being weaned to RA. He notes his pacemaker was 'perfectly set' by Dr. Lynch. Neither he nor his at bedside have any questions at this time. Objective PUL Vital signs: Last Vital Signs Temp 97.7 F 07/01/16 11:21 Pulse 60 07/01/16 11:45 Resp 18 07/01/16 12:24 BP 103/62 07/01/16 11:26 Pulse Ox 94 07/01/16 12:24 General appearance: no acute distress, alert Eyes: nonicteric ENT: oropharynx moist Neck: supple Effort: normal Auscultation: bilateral: diminished breath sounds, wheezes Cardiovascular: regular rate and rhythm Gastrointestinal: normoactive bowel sounds, soft, non-tender, non-distended Integumentary: normal Extremities: no cyanosis, no edema, pink and warm, pulses normal Musculoskeletal: no deformities normal mental status mood appropriate, affect normal Results - Laboratory Findings CBC and BMP: 07/01/16 04:25 07/01/16 04:25 ABG ABG pH 7.46 pH Units (7.32-7.45) H 06/27/16 01:25 ABG pCO2 31 mmHg (35-45) L 06/27/16 01:25 ABG pO2 57 mmHg (85-104) L 06/27/16 01:25 ABG O2 Saturation 91 % (95-98) L 06/27/16 01:25 PT/INR, D-dimer PT 14.0 Seconds (9.4-12.1) H 06/27/16 03:25 Abnormal lab findings: Abnormal lab results RBC 2.87 M/mcL (4.19-5.50) L 07/01/16 04:25 Hgb 8.7 g/dL (12.9-16.9) L 07/01/16 04:25 Hct 26.1 % (37.5-50.1) L 07/01/16 04:25 Plt Count 105 K/mcL (140-400) L 07/01/16 04:25 Band Neutrophils % 24.0 % (0-4) H 06/27/16 03:25 Lymphocytes # 0.3 K/mcL (0.6-4.6) L 07/01/16 04:25 Platelet Estimate Decreased (Normal) L 06/27/16 03:25 Large Platelets Present (Not Present) A 06/26/16 12:13 Immature Plt Fraction 6.2 % (1.1-6.1) H 07/01/16 04:25 Anisocytosis 1+ (Not Present) A 06/27/16 03:25 PT 14.0 Seconds (9.4-12.1) H 06/27/16 03:25 ABG pH 7.46 pH Units (7.32-7.45) H 06/27/16 01:25 ABG pCO2 31 mmHg (35-45) L 06/27/16 01:25 ABG pO2 57 mmHg (85-104) L 06/27/16 01:25 ABG O2 Saturation 91 % (95-98) L 06/27/16 01:25 ABG Hematocrit 21 % (35-51) L 06/26/16 10:19 Ionized Calcium 0.88 mmol/L (1.15-1.35) L 06/26/16 10:19 Sodium 131 mEq/L (136-145) L 07/01/16 04:25 BUN 39 mg/dL (8-26) H 07/01/16 04:25 BUN/Creatinine Ratio 43 (6-26) H 07/01/16 04:25 Glucose 202 mg/dL (70-99) H 07/01/16 04:25 POC Glucose 164 (58-89) H 07/01/16 07:16 Hemoglobin A1c 5.8 % (-5.6) H 06/25/16 08:59 Triglycerides 174 mg/dL (< 150) H 06/25/16 08:59 LDL Cholesterol, Calc 100 mg/dL (0-99) H 06/25/16 08:59 VLDL Cholesterol, Calc 35 mg/dL (< 31) H 06/25/16 08:59 HDL Cholesterol 27 mg/dL (40-59) L 06/25/16 08:59 Cholesterol/HDL Ratio 6.0 (0-4.9) H 06/25/16 08:59 Urine Blood Small (Negative) H 06/26/16 16:34 Urine Microscopic RBC 5-15 per hpf (0-3) H 06/26/16 16:34 - Clinical Findings Intake & Output: Intake & Output 06/30/16 07/01/16 07/01/16 23:59 07:59 15:59 Intake Total 250 / 250 200 / 200 360 / 360 Output Total 400 / 400 1150 / 1150 75 / 75 Balance -150 / -150 -950 / -950 285 / 285 Weight 80.785 kg - VTE Documentation of Mechanical Device: Graduated compression elastic hosiery Consult Discharge Plan - Plan Referrals: Cardiology Kirsty [Provider Group] ([facility]: 07/09/16 at 9:00 AM for wound check [facility]: 08/07/16 at 9:00 AM for device check) Darlin Lynch MD [Partnered Physician] - 07/15/16 7:30 am Mahendra Albert DO [Primary Care Provider] - 07/08/16 11:00 am Bran Stevenson MD [Partnered Physician] - 07/24/16 1:00 pm <Amanda Wayne - Last Filed: 07/01/16 16:32> Date of Encounter: 07/01/16 Objective PUL Vital signs: Last Vital Signs Temp 98.2 F 07/01/16 15:48 Pulse 62 07/01/16 15:48 Resp 18 07/01/16 15:48 BP 136/81 07/01/16 15:48 Pulse Ox 94 07/01/16 15:48 Results - Laboratory Findings CBC and BMP: 07/01/16 04:25 07/01/16 04:25 ABG ABG pH 7.46 pH Units (7.32-7.45) H 06/27/16 01:25 ABG pCO2 31 mmHg (35-45) L 06/27/16 01:25 ABG pO2 57 mmHg (85-104) L 06/27/16 01:25 ABG O2 Saturation 91 % (95-98) L 06/27/16 01:25 PT/INR, D-dimer PT 14.0 Seconds (9.4-12.1) H 06/27/16 03:25 Abnormal lab findings: Abnormal lab results RBC 2.87 M/mcL (4.19-5.50) L 07/01/16 04:25 Hgb 8.7 g/dL (12.9-16.9) L 07/01/16 04:25 Hct 26.1 % (37.5-50.1) L 07/01/16 04:25 Plt Count 105 K/mcL (140-400) L 07/01/16 04:25 Band Neutrophils % 24.0 % (0-4) H 06/27/16 03:25 Lymphocytes # 0.3 K/mcL (0.6-4.6) L 07/01/16 04:25 Platelet Estimate Decreased (Normal) L 06/27/16 03:25 Large Platelets Present (Not Present) A 06/26/16 12:13 Immature Plt Fraction 6.2 % (1.1-6.1) H 07/01/16 04:25 Anisocytosis 1+ (Not Present) A 06/27/16 03:25 PT 14.0 Seconds (9.4-12.1) H 06/27/16 03:25 ABG pH 7.46 pH Units (7.32-7.45) H 06/27/16 01:25 ABG pCO2 31 mmHg (35-45) L 06/27/16 01:25 ABG pO2 57 mmHg (85-104) L 06/27/16 01:25 ABG O2 Saturation 91 % (95-98) L 06/27/16 01:25 ABG Hematocrit 21 % (35-51) L 06/26/16 10:19 Ionized Calcium 0.88 mmol/L (1.15-1.35) L 06/26/16 10:19 Sodium 131 mEq/L (136-145) L 07/01/16 04:25 BUN 39 mg/dL (8-26) H 07/01/16 04:25 BUN/Creatinine Ratio 43 (6-26) H 07/01/16 04:25 Glucose 202 mg/dL (70-99) H 07/01/16 04:25 POC Glucose 119 (58-89) H 07/01/16 15:47 Hemoglobin A1c 5.8 % (-5.6) H 06/25/16 08:59 Triglycerides 174 mg/dL (< 150) H 06/25/16 08:59 LDL Cholesterol, Calc 100 mg/dL (0-99) H 06/25/16 08:59 VLDL Cholesterol, Calc 35 mg/dL (< 31) H 06/25/16 08:59 HDL Cholesterol 27 mg/dL (40-59) L 06/25/16 08:59 Cholesterol/HDL Ratio 6.0 (0-4.9) H 06/25/16 08:59 Urine Blood Small (Negative) H 06/26/16 16:34 Urine Microscopic RBC 5-15 per hpf (0-3) H 06/26/16 16:34 - Clinical Findings Intake & Output: Intake & Output 07/01/16 07/01/16 07/01/16 07:59 15:59 23:59 Intake Total 200 / 200 480 / 480 Output Total 1150 / 1150 75 / 75 Balance -950 / -950 405 / 405 Weight 80.785 kg - Attending Attestation I examined this patient and my medical decision-making was reviewed with the HIGH SCHOOL SCIENCE TEACHER/PA/Advanced Practice Nurse/Resident Physician. I agree with the documented findings, disposition and treatment plan as described except to the extent set forth below. Patient seen and examined. Labs, radiology, chart personally reviewed. Agree with resident's history and physical, assessment, plan with following comments: MAIL MESSENGER: Patient follows commands, Pulmonary: Acceptable oxygenation and ventilation and continue incentive spirometry and continue bronchodilators. We will follow up patient when necessary and may follow-up as outpatient. Cardiovascular: stable after placement of pacemaker Thank you for the consult
[2016-07-01] MEDS ORDERED: Bisacodyl 10 MG RECTAL SUPPOSITORY RC ONE ×2 (15:09)
[2016-07-01] MEDS: *HR* Heparin 5,000 UNIT/ML VIAL SQ SCH (18:24)
[2016-07-01] MEDS ORDERED: Insulin LISPRO 300 UNITS/3 ML VIAL SQ SCH (21:00)
[2016-07-02] LABS: Basophils % 0.1 %; Eosinophils # 0.2 K/mcL (0.0-0.6); Eosinophils % 1.6 %; Hematocrit 28.1 % (37.5-50.1); Hemoglobin 9.6 g/dL (12.9-16.9); Immature Granulocytes % 0.5 % (0-4); Lymphocytes # 0.4 K/mcL (0.6-4.6); Lymphocytes % 3.9 %; Mean Corpuscular HGB Conc 34.2 g/dL (31.6-35.5); Mean Corpuscular Hemoglobin 31.3 pg (28.0-33.3); Mean Corpuscular Volume 91.5 fL (83.0-100.0); Mean Platelet Volume 11.1 fL (9.4-12.4); Monocytes # 0.7 K/mcL (0.0-1.3); Monocytes % 7.1 %; Neutrophils # 8.7 K/mcL (1.6-8.9); Platelet Count 111 K/mcL (140-400); Red Blood Count 3.07 M/mcL (4.19-5.50); Red Cell Distribution Width 14.6 % (11.5-14.5); Segmented Neutrophils % 86.8 %
[2016-07-02 00:14] LABS: BUN/Creatinine Ratio 43 (6-26); Blood Urea Nitrogen 44 mg/dL (8-26); Calcium 9.4 mg/dL (8.6-10.8); Carbon Dioxide 24 mEq/L (19-29); Chloride 99 mEq/L (98-109); Glucose 129 mg/dL (70-99); Osmolality,Calculated 287 (280-300); Potassium 3.8 mEq/L (3.5-4.5); Sodium 132 mEq/L (136-145); eGFR For African Americans > 60 (> 60); eGFR For Non-African Americans > 60 (> 60)
[2016-07-02] MEDS: *HR* Heparin 5,000 UNIT/ML VIAL SQ SCH (05:45)
[2016-07-02] MEDS: Nicotine 14 MG PATCH.TD24 TD SCH (08:11)
[2016-07-02] MEDS: Insulin LISPRO 300 UNITS/3 ML VIAL SQ SCH ×2 (08:11→12:01)
[2016-07-02] MEDS: Chlorhexidine Rinse 15 ML MOUTHWASH MM SCH (08:11)
[2016-07-02] MEDS: Furosemide 20 MG/2 ML VIAL IVP SCH (08:11)
[2016-07-02] MEDS: Multivit/Ca/Min/Fe/FA 1 TAB TABLET PO SCH (08:12)
[2016-07-02] MEDS: *HR* Amiodarone 200 MG TABLET PO SCH (08:12)
[2016-07-02] MEDS: Aspirin Enteric Coated 81 MG Tablet PO SCH (08:12)
[2016-07-02] MEDS: Lisinopril 20 MG TABLET PO SCH (08:13)
[2016-07-02] MEDS: Fluticasone Propionate Nasal 50 MCG/SPRAY BOTTLE NS SCH (08:14)
[2016-07-02] MEDS: Budesonide/Formoterol 80/4.5 MDI IH SCH (08:17)
--- NOTE | 2016-07-02 08:24 | Discharge Summary ---
Date of Encounter: 07/02/16 Time of Encounter: 08:18 - Discharge Diagnosis (1) Prostate cancer Priority: Primary Status: Acute - Discharge Medications Prescriptions: Amiodarone [Cordarone] 200 mg PO DAILY #30 tablet Nicotine Patch [Nicoderm] 14 mg TD DAILY #14 patch.td24 Home Medications: Lisinopril [Zestril] 40 mg PO DAILY 02/14/15 [History] Oxaprozin [Daypro] 600 mg PO BID PRN 02/14/15 [History] Tamsulosin [Flomax] 0.4 mg PO DAILY 11/21/15 [History] Diltiazem CD (24hr) [Cardizem CD] 240 mg PO DAILY 11/22/15 [History] Aspirin [Lo-Dose Aspirin EC] 81 mg PO DAILY 01/27/16 [History] Multivit-Min/FA/Lycopen/Lutein [Men 50 Plus Multivitamin Tab] 1 tab PO DAILY [History] Oxybutynin [Ditropan] 5 mg PO DAILY PRN #30 tablet 01/27/16 [Rx] Ascorbate Calcium [Vitamin C] 1,000 mg PO DAILY 06/24/16 [History] Atorvastatin Calcium [Lipitor] 20 mg PO HS 06/24/16 [History] Vitamin A 10,000 unit PO DAILY 06/24/16 [History] Vitamin E 100 unit PO DAILY 06/24/16 [History] Amiodarone [Cordarone] 200 mg PO DAILY #30 tablet 07/02/16 [Rx] Nicotine Patch [Nicoderm] 14 mg TD DAILY #14 patch.td24 07/02/16 [Rx] Allergies/Adverse Reactions: Allergies No Known Allergies Allergy (Verified 08/14/15 09:08) Procedures/tests Complete & Pending: Procedures Performed prior 72 hours Category Date Time Status CL Insert Permanent Pacemaker [CL] Routine Breakfast Manager 06/30/16 09:00 Completed Date of admission: 06/25/16 13:53 Primary care physician: Mahendra Albert Consults: 06/24/16 16:41 Consult to Cardiothoracic Surgery [CONS] Routine Consulting Provider: Cardiothoracic Surgery Kirsty Reason for Consult: 3VCAD, eval for CABG Call Completed: Yes 06/26/16 12:24 Consult to Cardiac Rehabilitation-Phase1 [CONS] Routine Comment: Reason for Consult: Post open heart Call Completed: Yes Consult to Loss Control Technician [CONS] Routine Reason for SW Consult: open heart 06/28/16 08:36 Consult to Cardiology [CONS] Routine Comment: Consulting Provider: All [place] Reason for Consult: may need permanent pacemaker Call Completed: Yes 06/29/16 15:50 Consult to Pulmonology [CONS] Routine Consulting Provider: Pulm Crit Care & Sleep Kirsty Reason for Consult: NEEDING INCREASED OXYGEN. DR ZHANG NOTIFIED. Time Notified: 15:51 Call Completed: Yes 07/01/16 07:30 Consult for Pharmacy Education [CONS] Routine Reason for Consult: Post-Op Heart Call Completed: Yes Consult to Occupational Therapy [CONS] Routine Comment: Evaluate, develop and implement POC Consult to Physical Therapy [CONS] Routine Comment: Evaluate, develop and implement POC Procedure(s) Performed: June 26, 2016. Coronary artery bypass grafting 2, utilizing his left internal mammary artery. June 30, 2016. Permanent DDD pacemaker. Discharging clinician: Bran Stevenson Anticipated date of discharge: 07/02/16 - Discharge Instructions Follow Up With: Cardiology Kirsty [Provider Group] ([facility]: 07/09/16 at 9:00 AM for wound check [facility]: 08/07/16 at 9:00 AM for device check) Darlin Lynch MD [Partnered Physician] - 07/15/16 7:30 am Mahendra Albert DO [Primary Care Provider] - 07/08/16 11:00 am Bran Stevenson MD [Partnered Physician] - 07/24/16 1:00 pm - Hospital Course Hospital course: Mr. Fair is a 75 year old male - Time Spent with Patient Total time spent providing and/or coordinating discharge services: Physical Examination Vital Signs, Last 4 Hours Temp Pulse Resp BP Pulse Ox 07/02/16 07:39 97.9 F 62 20 130/83 92 07/02/16 04:37 20 92 - VTE Documentation of Mechanical Device: Graduated compression elastic hosiery
--- NOTE | 2016-07-02 08:34 | Discharge Summary ---
Date of Encounter: 07/02/16 Time of Encounter: 08:30 - Discharge Diagnosis (1) Prostate cancer Priority: Primary Status: Acute - Discharge Medications Prescriptions: Amiodarone [Cordarone] 200 mg PO DAILY #30 tablet Nicotine Patch [Nicoderm] 14 mg TD DAILY #14 patch.td24 Home Medications: Lisinopril [Zestril] 40 mg PO DAILY 02/14/15 [History] Oxaprozin [Daypro] 600 mg PO BID PRN 02/14/15 [History] Tamsulosin [Flomax] 0.4 mg PO DAILY 11/21/15 [History] Diltiazem CD (24hr) [Cardizem CD] 240 mg PO DAILY 11/22/15 [History] Aspirin [Lo-Dose Aspirin EC] 81 mg PO DAILY 01/27/16 [History] Multivit-Min/FA/Lycopen/Lutein [Men 50 Plus Multivitamin Tab] 1 tab PO DAILY [History] Oxybutynin [Ditropan] 5 mg PO DAILY PRN #30 tablet 01/27/16 [Rx] Ascorbate Calcium [Vitamin C] 1,000 mg PO DAILY 06/24/16 [History] Atorvastatin Calcium [Lipitor] 20 mg PO HS 06/24/16 [History] Vitamin A 10,000 unit PO DAILY 06/24/16 [History] Vitamin E 100 unit PO DAILY 06/24/16 [History] Amiodarone [Cordarone] 200 mg PO DAILY #30 tablet 07/02/16 [Rx] Nicotine Patch [Nicoderm] 14 mg TD DAILY #14 patch.td24 07/02/16 [Rx] Allergies/Adverse Reactions: Allergies No Known Allergies Allergy (Verified 08/14/15 09:08) Procedures/tests Complete & Pending: Procedures Performed prior 72 hours Category Date Time Status CL Insert Permanent Pacemaker [CL] Routine Cellophane Bath Mixer 06/30/16 09:00 Completed Date of admission: 06/25/16 13:53 Primary care physician: Mahendra Albert Consults: 06/24/16 16:41 Consult to Cardiothoracic Surgery [CONS] Routine Consulting Provider: Cardiothoracic Surgery Kirsty Reason for Consult: 3VCAD, eval for CABG Call Completed: Yes 06/26/16 12:24 Consult to Cardiac Rehabilitation-Phase1 [CONS] Routine Comment: Reason for Consult: Post open heart Call Completed: Yes Consult to Theater Set Production Designer [CONS] Routine Reason for SW Consult: open heart 06/28/16 08:36 Consult to Cardiology [CONS] Routine Comment: Consulting Provider: All [place] Reason for Consult: may need permanent pacemaker Call Completed: Yes 06/29/16 15:50 Consult to Pulmonology [CONS] Routine Consulting Provider: Pulm Crit Care & Sleep Kirsty Reason for Consult: NEEDING INCREASED OXYGEN. DR ZHANG NOTIFIED. Time Notified: 15:51 Call Completed: Yes 07/01/16 07:30 Consult for Pharmacy Education [CONS] Routine Reason for Consult: Post-Op Heart Call Completed: Yes Consult to Occupational Therapy [CONS] Routine Comment: Evaluate, develop and implement POC Consult to Physical Therapy [CONS] Routine Comment: Evaluate, develop and implement POC Procedure(s) Performed: June 26, 2016. Coronary artery bypass grafting 2, utilizing the left internal mammary artery. June 30, 2016. DDD pacemaker. Discharging clinician: Bran Stevenson Anticipated date of discharge: 07/02/16 - Patient Status Disposition: Home, Self-Care Condition: Fair Functional capacity at discharge: independent ambulation Overall status at discharge: patient is progressing back to baseline - Discharge Instructions Follow Up With: Cardiology Kirsty [Provider Group] ([facility]: 07/09/16 at 9:00 AM for wound check [facility]: 08/07/16 at 9:00 AM for device check) Darlin Lynch MD [Partnered Physician] - 07/15/16 7:30 am Mahendra Albert DO [Primary Care Provider] - 07/08/16 11:00 am Bran Stevenson MD [Partnered Physician] - 07/24/16 1:00 pm - Hospital Course Hospital course: Mr. Fair is a 75 year old male The patient is a 75-year-old gentleman who presented with angina and a positive stress test. Ejection fraction was 38% on the gated study. Cardiac catheterization revealed triple-vessel disease and he was referred for surgery. On June 26, 2016, I took him to the operating room for coronary bypass grafting 2 utilizing his left internal mammary artery. The patient did have atrial fibrillation in the operating room and was started on an amiodarone drip. Postoperatively, he was paced in the DDD mode. When the pacer was caused, he had asystole. The amiodarone and Coreg were stopped. He also had a brief episode of a flutter. On June 30, the patient underwent insertion of a DDD pacemaker in the cardiac catheterization lab. After this, the patient did well and was transferred to the floor. He otherwise did well and was discharged on July 02. At that time, he was afebrile. He was in a normal sinus rhythm or paced rhythm. Lungs were clear to percussion and auscultation. All incisions were healing well without signs of infection and the sternum was stable. He was sent home on oxygen at 2 L for continuous use. He did have a history of active smoking up to the time of admission. Discharge medications are on the [facility]. He was given a prescription for Percocet for pain. I did check the [place] automated Rx reporting system. Appropriate precautions were given. He was given a one-week supply and he was postoperative. He was to return to his previous and regular diet. He was to avoid heavy lifting for a total of 3 months after surgery. He was to avoid driving for 1 month. He did have a history of prostate cancer. He was treated with laser surgery, radiation therapy and hormone therapy. He was sent home with an indwelling Locke per the patient's request. He is to follow-up with urology to have this removed. He is to follow up and see me in the office in 4 weeks as directed. He is to follow-up with his primary care and courtesy driver as directed. He is to call sooner for any difficulties. - Time Spent with Patient Total time spent providing and/or coordinating discharge services: Physical Examination Vital Signs, Last 4 Hours Temp Pulse Resp BP Pulse Ox 07/02/16 07:39 97.9 F 62 20 130/83 92 07/02/16 04:37 20 92 Open Heart Registry Aspirin Cont/Prescribed at DC: Yes Beta Tom Cont/Prescribed at DC: No (heart block on amiodarone and cardizem) Statin Cont/Prescribed at DC: Yes GERARD/ARB Cont/Prescribed at DC: Yes - VTE Documentation of Mechanical Device: Graduated compression elastic hosiery
[2016-07-02 11:48] VITALS: BP 113/69
== END 2016-07-02 14:50 | disposition home health service (06) | DRG 233 ==
LOC: 2ANU 09:39 → CARSER 09:39 → 2NENU 16:52 → ICNU 06-26 09:56 → 2NNU 07-01 10:24
PROVIDERS: ADMIT Internal Medicine Interventional Cardiology; ATTEND Thoracic Surgery (Cardiothoracic Vascular Surgery)

== ENCOUNTER 2016-12-30 11:54 | Observation (INO) ==
[2016-12-30 12:56] LABS: Basophils % 0.4 %; Eosinophils # 0.1 K/mcL (0.0-0.6); Eosinophils % 1.6 %; Hemoglobin 10.6 g/dL (12.9-16.9); Immature Granulocytes % 0.4 % (0-4); Lymphocytes # 0.9 K/mcL (0.6-4.6); Lymphocytes % 12.2 %; Mean Corpuscular HGB Conc 32.1 g/dL (31.6-35.5); Mean Corpuscular Hemoglobin 29.2 pg (28.0-33.3); Mean Corpuscular Volume 90.9 fL (83.0-100.0); Monocytes # 0.7 K/mcL (0.0-1.3); Monocytes % 9.6 %; Neutrophils # 5.3 K/mcL (1.6-8.9); Platelet Count 208 K/mcL (140-400); Red Blood Count 3.63 M/mcL (4.19-5.50); Red Cell Distribution Width 16.9 % (11.5-14.5); Segmented Neutrophils % 75.8 %
--- NOTE | 2016-12-30 13:01 | Emergency Department Note ---
Disposition Clinical Impression: Anterior chest wall pain, Nodule of chest wall, History of coronary artery bypass graft Chest pain Qualifiers: Chest pain type: unspecified Qualified Code(s): R07.9 - Chest pain, unspecified Pneumonia Qualifiers: Pneumonia type: due to unspecified organism Laterality: right Lung location: upper lobe of lung Qualified Code(s): J18.1 - Lobar pneumonia, unspecified organism Disposition: Admitted As Inpatient Condition: Fair Time of Disposition: 17:45 General Adult HPI - General Chief complaint: ED Skin/Abscess/Foreign Body Stated complaint: Open Heart Surgery Site Swollen Painfull Time Seen by Provider: 12/30/16 12:13 Source: patient Limitations: no limitations Nursing Notes Reviewed: Yes Vital Signs Reviewed: Yes - History of Present Illness HPI Narrative: 76-year-old male with history of CABG back in May by Dr. Stevenson cardiothoracic surgeon. Patient states he has been having chest pain and cough that continues to get worse. Patient states Pain is worse when lying back, and lying on his side. Patient states he has relief when sitting up. Patient does have pain across his upper abdomen subcostal region when leaning forward. Patient denies any fevers, chills, nausea, vomiting, shortness of breath. Patient states he has pain along his sternum with a area of swelling upper sternal just left of midline that is painful and worse with palpation. Patient has an area of erythema down at the base of his sternum that is also painful when touched. Patient states that just one at ago while laying down he noticed an acute elevation of area down by his xiphoid process. Patient states after he took a nap it went away. Pain Scale: 6 - Related Data Home Medications Medication Instructions Recorded Confirmed Lisinopril [Zestril] 40 mg PO DAILY 02/14/15 12/30/16 Oxaprozin [Daypro] 600 mg PO BID PRN 02/14/15 12/30/16 Multivit-Min/FA/Lycopen/Lutein 1 tab PO DAILY 01/27/16 12/30/16 [Men 50 Plus Multivitamin Tab] Atorvastatin Calcium [Lipitor] 20 mg PO HS 06/24/16 12/30/16 Apixaban [Eliquis] 5 mg PO BID 07/27/16 12/30/16 Furosemide [Lasix] 40 mg PO DAILY 07/27/16 12/30/16 Metoprolol [Lopressor] 50 mg PO BID 07/27/16 12/30/16 Leuprolide Acetate [Lupron Depot] 22.5 mg IM [id number] 08/27/16 12/30/16 Aspirin Enteric Coated [Aspirin EC] 81 mg PO DAILY 12/30/16 12/30/16 Docusate [Colace] 100 mg PO DAILY 12/30/16 12/30/16 HYDROcodone/Acet 5/325 mg [[place] 1 tab PO Q6H PRN 12/30/16 12/30/16 5-325 mg] Nitroglycerin [Nitrostat] 0.4 mg SL Q5M PRN 12/30/16 12/30/16 dilTIAZem HCl [Diltiazem ER] 240 mg PO DAILY 12/30/16 12/30/16 Allergies Allergy/AdvReac Type Severity Reaction Status Date / Time Oxycodone [From Percocet] Allergy Vomiting Verified 12/30/16 12:11 All systems ED: reviewed and negative except as stated. Review of Systems: As Per HPI Constitutional: Denies: fever, chills, weakness Eyes: Denies: vision change ENT ED: Denies: congestion Cardiovascular: Reports: chest pain. Denies: palpitations Respiratory: Reports: cough. Denies: wheezes Gastrointestinal: Reports: abdominal pain. Denies: nausea, vomiting, diarrhea Genitourinary: Denies: urgency, dysuria Musculoskeletal: Denies: back pain Integumentary: Denies: rash Neurological: Denies: headache Psychiatric: Denies: anxiety Past Medical History - Past Medical History Attestation: Yes The following information was validated with the patient. Source: patient Medical history: Reports: cancer, coronary artery disease, GERD, hyperlipidemia , hypertension Surgical history: Reports: coronary bypass (CABG), pacemaker/AICD Psychiatric history: Reports: no psych history - Social History Smoking Status: Former smoker Smokeless Tobacco Status: No Alcohol use: Reports: none Drug use: Reports: none Physical Exam Vital Signs Temperature 98.3 F 12/30/16 12:07 Pulse Rate 61 12/30/16 12:07 Respiratory Rate 16 12/30/16 12:07 Blood Pressure 146/86 12/30/16 12:07 O2 Sat by Pulse Oximetry 95 12/30/16 12:07 Temperature 98.3 F 12/30/16 12:07 Pulse Rate 61 12/30/16 12:07 Respiratory Rate 16 12/30/16 12:07 Blood Pressure 146/86 12/30/16 12:07 O2 Sat by Pulse Oximetry 95 12/30/16 12:07 Oxygen Delivery Oxygen Delivery Room Air 76-year-old male who is alert and oriented 3 and in no acute distress. Not on chest which is concerning is 5 x 6 cm in size and elevated. Tender to palpation - General Limitations: no limitations General appearance: alert, in no apparent distress - Head Head exam: atraumatic, normocephalic, normal inspection - Eye Eye exam: Present: normal appearance, PERRL, EOMI - ENT ENT exam: normal exam, normal oropharynx, mucous membranes moist - Neck Neck exam: Present: normal inspection, full ROM, trachea midline - Chest Chest inspection: Present: symmetric chest wall rise, tenderness (Midline tenderness to palpation) - Respiratory Respiratory exam: Present: other (Bilateral lower lung field rales). Absent: respiratory distress, wheezes - Cardiovascular Cardiovascular exam: Present: regular rate, normal rhythm, normal heart sounds - Abdominal Exam Abdominal exam: Present: soft, Non-Tender. Absent: tenderness, distention, guarding, rebound, rigidity - Extremities Exam Extremities exam: Present: normal inspection, full ROM, normal capillary refill. Absent: tenderness, pedal edema, joint swelling, calf tenderness - Back Exam Back exam: Present: normal inspection, full ROM. Absent: tenderness, CVA tenderness (R), CVA tenderness (L) - Psychiatric Psychiatric exam: Present: normal affect - Skin Skin exam: Present: warm, dry, intact, normal color, erythema (A long superior and inferior sternum) Course - Consultations Consultation #1: Discussed case with Dr. Rodriguez cardiothoracic surgery who states to admit patient to hospital and they will see patient on floor to take a look at a swelling on his chest. Time: 16:24 Vital Signs Temperature 98.3 F 12/30/16 12:07 Pulse Rate 61 12/30/16 12:07 Respiratory Rate 16 12/30/16 12:07 Blood Pressure 146/86 12/30/16 12:07 O2 Sat by Pulse Oximetry 95 12/30/16 12:07 Temperature 98.3 F 12/30/16 12:07 Pulse Rate 63 12/30/16 16:28 Respiratory Rate 16 12/30/16 18:28 Blood Pressure 139/81 12/30/16 18:28 O2 Sat by Pulse Oximetry 95 12/30/16 16:28 Oxygen Delivery Oxygen Delivery Room Air Medical Decision Making - MDM Narrative Medical decision making narrative: Patient status post CABG back in May of this year by Dr. Stevenson. Cardiothoracic surgery with a lump and irritation on his chest near his surgical incision that is painful to palpation. Patient has chest pain when leaning forward and laying on his left side. CT of the chest was taken and shows Chest CTA 12/30/16 12:34 IMPRESSION: 1. No evidence of pulmonary embolism. 2. New vague ground-glass opacities in the anterior aspect of the right upper lobe (image 23), which are nonspecific, but could represent infectious or inflammatory pneumonitis. 3. Previous noted right lower lobe airspace opacities and left upper lobe nodular opacities have resolved compared to the prior study. There remains reticular and linear opacities at the bilateral bases which likely reflect atelectasis. 4. Stable small but slightly prominent nonspecific mediastinal lymph node measuring up to 16 x 14 mm. 5. Persistent 5 mm left upper lobe subpleural ground-glass nodule (image 30), which has been stable from 06/24/2016. Follow-up as below. 6. Emphysema. 7. Mild dilatation of pulmonary artery 3.2 cm, may represent underlying pulmonary artery hypertension. 8. Stable cardiomegaly and postsurgical changes from prior CABG. 9. 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 D/ / Velasquez Sahu MD / Velasquez Sahu MD Interpreting Provider: Velasquez Sahu MD Discussed case with Dr. Rodriguez cardiothoracic surgery who states to admit to medicine and they will see him once he is admitted. Patient will be started on antibiotics for pneumonia and started on levofloxacin 750 mg IV once. Patient has been told of the results and understands and agrees for decision for admission. Patient was accepted for admission by Paul Romano the hospitalist at 1735 hrs. - Lab Data Lab results reviewed: Yes I reviewed the patient's lab results. Lab results narrative: Short CBC 12/30/16 Range/Units 12:48 WBC 7.0 (4.3-11.1) K/mcL Hgb 10.6 L (12.9-16.9) g/dL Hct 33.0 L (37.5-50.1) % Plt Count 208 (140-400) K/mcL Neutrophils # 5.3 (1.6-8.9) K/mcL BMP 12/30/16 Range/Units 12:48 Sodium 136 (136-145) mEq/L Potassium 4.5 (3.5-4.5) mEq/L Chloride 102 (98-109) mEq/L Carbon Dioxide 26 (19-29) mEq/L BUN 25 (8-26) mg/dL Creatinine 0.91 (0.72-1.25) mg/dL Glucose 101 H (70-99) mg/dL Calcium 10.0 (8.6-10.8) mg/dL Cardiac Enzymes 12/30/16 Range/Units 12:48 Troponin I 0.00 (0-0.03) ng/mL Result diagrams: 12/30/16 12:48 12/30/16 12:48 Lab Results 12/30/16 12/30/16 12/30/16 Range/Units 12:48 12:48 12:48 WBC 7.0 (4.3-11.1) K/mcL RBC 3.63 L (4.19-5.50) M/mcL Hgb 10.6 L (12.9-16.9) g/dL Hct 33.0 L (37.5-50.1) % MCV 90.9 (83.0-100.0) fL MCH 29.2 (28.0-33.3) pg MCHC 32.1 (31.6-35.5) g/dL RDW 16.9 H (11.5-14.5) % Plt Count 208 (140-400) K/mcL MPV 9.0 L (9.4-12.4) fL Immature Gran % 0.4 (0-4) % Seg Neutrophils % 75.8 % Lymphocytes % 12.2 % Monocytes % 9.6 % Eosinophils % 1.6 % Basophils % 0.4 % Neutrophils # 5.3 (1.6-8.9) K/mcL Lymphocytes # 0.9 (0.6-4.6) K/mcL Monocytes # 0.7 (0.0-1.3) K/mcL Eosinophils # 0.1 (0.0-0.6) K/mcL Basophils # 0.0 (0.0-0.2) K/mcL Sodium 136 (136-145) mEq/L Potassium 4.5 (3.5-4.5) mEq/L Chloride 102 (98-109) mEq/L Carbon Dioxide 26 (19-29) mEq/L BUN 25 (8-26) mg/dL Creatinine 0.91 (0.72-1.25) mg/dL Est GFR ( Amer) > 60 (> 60) Est GFR (Non-Af Amer) > 60 (> 60) BUN/Creatinine Ratio 27 H (6-26) Glucose 101 H (70-99) mg/dL Calculated Osmolality 287 (280-300) Calcium 10.0 (8.6-10.8) mg/dL Troponin I 0.00 (0-0.03) ng/mL Lipase 21 (8-78) Units/L - Radiology Data Radiology results reviewed: Yes I reviewed the patient's radiology results. Chest CTA 12/30/16 12:34 IMPRESSION: 1. No evidence of pulmonary embolism. 2. New vague ground-glass opacities in the anterior aspect of the right upper lobe (image 23), which are nonspecific, but could represent infectious or inflammatory pneumonitis. 3. Previous noted right lower lobe airspace opacities and left upper lobe nodular opacities have resolved compared to the prior study. There remains reticular and linear opacities at the bilateral bases which likely reflect atelectasis. 4. Stable small but slightly prominent nonspecific mediastinal lymph node measuring up to 16 x 14 mm. 5. Persistent 5 mm left upper lobe subpleural ground-glass nodule (image 30), which has been stable from 06/24/2016. Follow-up as below. 6. Emphysema. 7. Mild dilatation of pulmonary artery 3.2 cm, may represent underlying pulmonary artery hypertension. 8. Stable cardiomegaly and postsurgical changes from prior CABG. 9. 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 D/ / 12/30/2016 16:45:25 Velasquez Sahu MD / anitha Interpreting Provider: Velasquez Sahu MD - EKG Data EKG #1 EKG attestation: Yes I reviewed and interpreted this EKG. EKG results narrative: EKG taken 12/30/2016 shows a paced rhythm at a rate of 60 bpm with no acute ST elevations but that showed ST depressions in lateral leads V5 and V6 but can be seen on previous EKG dated back in August 2016. Attestation Statement - Attestation Attestation: I, Rome Vuong DO, examined this patient [id number] and my medical decision-making was reviewed with Dr. Nickolas Rodriguez, Resident Physician. I agree with the documented findings, disposition and treatment plan as described except to the extent set forth below. Please see my progress notes for details.
[2016-12-30 13:12] LABS: BUN/Creatinine Ratio 27 (6-26); Blood Urea Nitrogen 25 mg/dL (8-26); Carbon Dioxide 26 mEq/L (19-29); Chloride 102 mEq/L (98-109); Glucose 101 mg/dL (70-99); Lipase 21 Units/L (8-78); Osmolality,Calculated 287 (280-300); Potassium 4.5 mEq/L (3.5-4.5); Sodium 136 mEq/L (136-145); eGFR For African Americans > 60 (> 60); eGFR For Non-African Americans > 60 (> 60)
--- NOTE | 2016-12-30 13:32 | Emergency Department Note ---
START Narrative - START START: A 76-year-old male presents emergency room for evaluation of chest wall pain. Symptoms started several months ago after having a an open heart procedure performed. He has redness and swelling that comes and goes to the sternotomy site scar. Denies any chest pain shortness of breath headache vision changes nausea vomiting or diarrhea. Denies any trauma or injuries to the chest wall. He has not been seen by Dr. Stevenson the operative physician since the procedure was performed. Patient does have some positional symptoms with forward flexion or backward flexion of the chest. He does have palpable fluid accumulations concerning for stroma or abscess or possible fistula secondary to the surgical procedure. He also may have irritation from the K wires placed in the chest wall. Otherwise his physical exam is benign. Labs including EKG and then CT angiography of the chest to be completed in the consultation be placed onto the operative physician of note. See detailed documentation of the physical exam, medical intervention, medical decision-making, consultation and disposition and the resident physician's note [id number] Patient found to have right-sided pneumonia. Consultation placed to the cardiothoracic surgeon Dr. Rodriguez. No other recommendations from him at this time he will see the patient also does evaluate the wound area. Patient will be admitted at this time for pneumonia as well as symptomatically presentation with hypoxia and shortness of breath. No other clinical issues noted during his treatment course. Patient is otherwise stable. See detailed documentation of the physical exam and consultation for admission in the resident physician's note
[2016-12-30] MEDS ORDERED: Levofloxacin 750 MG/150 ML 750 MG/150 ML BAG IVPB ONE (17:20)
[2016-12-30] MEDS ORDERED: Naloxone 0.4 MG/ML INJ IVP PRN (20:51)
[2016-12-30] MEDS ORDERED: Nitroglycerin 0.4 MG TAB.SUBL SL PRN (20:55)
[2016-12-30] MEDS ORDERED: *HR* HYDROcodone/Acet 5/325 mg TABLET PO PRN (20:55)
[2016-12-30] MEDS ORDERED: Diclofenac Sodium (24 HR) 100 MG TABLET PO PRN (20:55)
[2016-12-30] MEDS ORDERED: APIXABAN 5 MG TABLET PO SCH (21:00)
--- NOTE | 2016-12-30 21:00 | Internal Med History&Physical ---
Date of Encounter: 12/30/16 Time of Encounter: 20:57 Assessment and Plan (1) Anterior chest wall pain Current visit: Yes Status: Acute Anterior chest wall pain with coughing sneezing and position changes. Denies any SOB, or chest pressure/pain, only reporting pain with position changes and new swelling at surgical incision site. (2) Nodule of chest wall Current visit: Yes Status: Acute New bony nodular on the manubrium with erythema and tenderness. Erythema and tenderness noted to xiphoid process as well. No drainage noted. Infectious vs allergy to sternal wires. He reports that his cardiothoracic surgeon mentioned that he may have an allergy to sternal wires. (3) CAD (coronary artery disease) Current visit: Yes Status: Acute h/o CAD requiring CABG in June of 2016. Hemodynamically stable at this time. Anterior chest pain does not appear to coronary in presentation but instead likely caused by New bony swollen tumor at the manubrium. Continue ASA, Statin, BB, and GERARD. Qualifiers: Coronary Disease-Associated Artery/Lesion type: [place] artery [place] vs. transplanted heart: benton heart Associated angina: with unspecified angina Qualified Code(s): I25.119 - Atherosclerotic heart disease of [place] coronary artery with unspecified angina pectoris (4) Hypertension Current visit: Yes Status: Acute Hemodynamically Stable, resume BB, GERARD at home dose Qualifiers: Qualified Code(s): I10 - Essential (primary) hypertension (5) Pneumonia Current visit: Yes Status: Acute Infectious vs inflammatory pneumonitis. WBC 7, and the patient does not appear ill. Was given levaquin in the ED. Will hold off on levaquin at this time as he does not appear to have an infectious source. Qualifiers: Pneumonia type: due to unspecified organism Laterality: right Lung location: upper lobe of lung Qualified Code(s): J18.1 - Lobar pneumonia, unspecified organism Internal Medicine - H&P: HPI Chief complaint: CHEST DISCOMFORT, SWELLING AND TENDERNESS AT SURGICAL SITE Admitted From: Home Plans for Post Hospital Care: Home History of present illness: Mr. Fair is a 76 year old male 76-year-old male with history of CABG back in May by Dr. Stevenson cardiothoracic surgeon. Patient states he has been having chest pain and cough that continues to get worse. Patient states Pain is worse when lying back, and lying on his side. Patient states he has relief when sitting up. Patient does have pain across his upper abdomen subcostal region when leaning forward. Patient denies any fevers, chills, nausea, vomiting, shortness of breath. Patient states he has pain along his sternum with a area of swelling upper sternal just left of midline that is painful and worse with palpation. Patient has an area of erythema down at the base of his sternum that is also painful when touched. Patient states that just one at ago while laying down he noticed an acute elevation of area down by his xiphoid process. Patient states after he took a nap it went away. Past Med Surg Social Fam HX - Past Medical History Medical history: cancer, coronary artery disease, GERD, hyperlipidemia, hypertension Psychiatric history: no psych history - Past Surgical History Surgical History: coronary bypass (CABG), pacemaker/AICD - Social History Smoking Status: Former smoker Packs per day: 1/2 Smokeless Tobacco Status: No Alcohol use: none Drug use: none - Family History Mother Living Status: Age at : 80 Cause of : Cancer Hx Family Cancer: Yes (Neck/throat) Father Living Status: Age at : 79 Cause of : CHF Hx Family Cardiac Disorders: Yes (CHF) Internal Medicine - H&P: Meds Lisinopril [Zestril] 40 mg PO DAILY 02/14/15 [History] Oxaprozin [Daypro] 600 mg PO BID PRN 02/14/15 [History] Multivit-Min/FA/Lycopen/Lutein [Men 50 Plus Multivitamin Tab] 1 tab PO DAILY [History] Atorvastatin Calcium [Lipitor] 20 mg PO HS 06/24/16 [History] Apixaban [Eliquis] 5 mg PO BID 07/27/16 [History] Furosemide [Lasix] 40 mg PO DAILY 07/27/16 [History] Metoprolol [Lopressor] 50 mg PO BID 07/27/16 [History] Leuprolide Acetate [Lupron Depot] 22.5 mg IM [id number] 08/27/16 [History] Aspirin Enteric Coated [Aspirin EC] 81 mg PO DAILY 12/30/16 [History] Docusate [Colace] 100 mg PO DAILY 12/30/16 [History] HYDROcodone/Acet 5/325 mg [[place] 5-325 mg] 1 tab PO Q6H PRN 12/30/16 [History] Nitroglycerin [Nitrostat] 0.4 mg SL Q5M PRN 12/30/16 [History] dilTIAZem HCl [Diltiazem ER] 240 mg PO DAILY 12/30/16 [History] 3 Allergy/AdvReac Type Severity Reaction Status Date / Time Oxycodone [From Percocet] Allergy Vomiting Verified 12/30/16 12:11 All Systems PM: A 10-system review of systems was performed and is negative for pertinent findings except as documented above in the HPI. - Constitutional Constitutional: no chills, no fever(s), no night sweats - EENT Eyes: no change in vision, no discharge, no pain, no photophobia Ears: no ear discharge, no ear pain, no tinnitus Nose, mouth and throat: no dysphagia, no nasal discharge, no neck pain, no sore throat - Cardiovascular Cardiovascular ROS IM: as per HPI, chest pain (with swelling and tenderness at CABG site), no diaphoresis, no dyspnea, no dyspnea on exertion, no edema, no irregular heart rhythm, no lightheadedness, no orthopnea, no palpitations, no syncope - Respiratory Respiratory: no cough, no dyspnea, no wheezing, no excessive phlegm production - Gastrointestinal Gastrointestinal: no abdominal pain, no diarrhea, no hematemesis, no hematochezia, no melena, no nausea, no vomiting - Musculoskeletal Musculoskeletal ROS IM: no numbness, no tingling - Integumentary Integumentary IM: erythema, no new lesions, no non-healing lesions, no pruritus , no rash, no skin ulcer, no sores Additional comments: Erythema and swelling with pain and discomfort at old CABG site. Reports that pain increases with movement and lying flat or on the left side. Improves when sitting elevated greater than approximately 45 degrees. - Neurological Neurological ROS: no confusion, no convulsions, no focal weakness, no numbness, no tingling, no tremor(s) - Hematologic/Lymphatic Hematologic/Lymphatic: no easy bruising - Constitutional Vitals: Temp Pulse Resp BP Pulse Ox 98.3 F 61 16 149/79 94 12/30/16 18:54 12/30/16 18:54 12/30/16 18:54 12/30/16 18:54 12/30/16 18:54 General appearance: Present: cooperative, A&O X 3, no acute distress, answers questions appropriately - Head Head exam: Present: atraumatic, normocephalic - Eye Eye exam: Present: EOMI, PERRL, conjuntiva pink, sclera anicteric Pupils: Present: PERRL - Neck Neck exam general surgery: Present: supple, trachea midline. Absent: lymphadenopathy - Respiratory Respiratory exam: Present: CTAB. Absent: accessory muscle use, rales, rhonchi, wheezes - Cardiovascular Cardiovascular exam: Present: RRR, +S1, +S2. Absent: diastolic murmur, gallop, rubs, systolic murmur - GI/Abdominal GI/Abdominal exam: Present: normal bowel sounds, soft, no peritoneal signs. Absent: distended, tenderness - Extremities Exam Extremities exam: Present: warm, radial pulses palpable and symmetrical. Absent : calf tenderness, cyanotic, pedal edema - Neurological Exam Neurological exam: Present: CN II-XII intact, oriented X3, no focal deficits. Absent: pronater drift, facial droop, speech deficit - Skin Skin exam: Present: dry, erythema, intact, warm - Expanded Skin Exam Description of rash: Present: erythematous, swelling, tenderness Full body front and back image: 1 - Bony swollen mass on manubrium and xiphoid process with erythema. No drainage noted. Internal Med - H&P Results - Labs CBC & Chem 7: 12/30/16 12:48 12/30/16 12:48 - EKG Data -: EKG Interpreted by Myself EKG shows normal: sinus rhythm Rate: normal - EKG Data Prior EKG available for review: yes When compared to previous EKG: there is no significant change Interpretation IM: normal EKG - Diagnostic Studies CT scan - chest Status: image reviewed by me Additional comments: CTA no PE, only revealing inflammatory vs infectious pneumonitis - VTE Reasons for not Prescribing Prophylaxis: Not indicated-Anticoagulated or INR therapeutic
[2016-12-30] MEDS: Nicotine 14 MG PATCH.TD24 TD SCH (21:44)
--- NOTE | 2016-12-31 01:49 | Event Note ---
Date of Encounter: 12/31/16 Time of Encounter: 01:47 Patient seen and examined with nurse practitioner. Will start on Levaquin for suspected pneumonia. He has some redness on the lower sternum however this has been present for three-month and is not new. He has a swelling in the upper sternal border for the past 2 weeks likely related to recent CABG surgery, would ask for surgery input. No evidence of mediastinitis
[2016-12-31 03:44] LABS: Basophils % 0.4 %; Eosinophils # 0.2 K/mcL (0.0-0.6); Eosinophils % 2.1 %; Hematocrit 33.5 % (37.5-50.1); Immature Granulocytes % 0.3 % (0-4); Immature Platelets 2.2 % (1.1-6.1); Lymphocytes # 0.7 K/mcL (0.6-4.6); Lymphocytes % 10.5 %; Mean Corpuscular HGB Conc 32.8 g/dL (31.6-35.5); Mean Corpuscular Hemoglobin 29.3 pg (28.0-33.3); Mean Corpuscular Volume 89.3 fL (83.0-100.0); Mean Platelet Volume 9.2 fL (9.4-12.4); Monocytes # 0.6 K/mcL (0.0-1.3); Monocytes % 7.9 %; Neutrophils # 5.6 K/mcL (1.6-8.9); Platelet Count 253 K/mcL (140-400); Red Blood Count 3.75 M/mcL (4.19-5.50); Red Cell Distribution Width 16.9 % (11.5-14.5); Segmented Neutrophils % 78.8 %
[2016-12-31 04:08] LABS: BUN/Creatinine Ratio 21 (6-26); Blood Urea Nitrogen 23 mg/dL (8-26); Calcium 9.9 mg/dL (8.6-10.8); Carbon Dioxide 22 mEq/L (19-29); Chloride 104 mEq/L (98-109); Glucose 105 mg/dL (70-99); Osmolality,Calculated 286 (280-300); Potassium 4.1 mEq/L (3.5-4.5); Sodium 136 mEq/L (136-145); eGFR For African Americans > 60 (> 60); eGFR For Non-African Americans > 60 (> 60)
[2016-12-31 07:22] VITALS: BP 143/81
--- NOTE | 2016-12-31 08:30 | Cardiothoracic Consult Note ---
Date of Encounter: 12/31/16 Time of Encounter: 08:26 Assessment and Plan (1) Cellulitis Current Visit: Yes Status: Acute The patient is a 76-year-old hypertensive man with hypercholesterolemia and known CAD who underwent CABG 2 on June 26, 2016. He was seen by Dr. Bran Stevenson in the office approximately 2 months after his operation because of erythema along the sternotomy incision. At this time it was determined that the patient had irritation from the sternal wires; however, there was no drainage or other evidence of infection. Examination today shows possible abscess at the lower portion of his sternotomy incision due to the sternal wire. 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 The patient should undergo removal of the sternal wires at the inferior aspect of the sternum as well as sternal manubrial joint. This will be performed by Dr. Bran Stevenson in the morning. The assessment and plan as outlined above was discussed with the patient and/or family members who expressed understanding and agreement. All questions were answered. Qualifiers: Site of cellulitis: trunk Site of cellulitis of trunk: chest wall Qualified Code(s): L03.313 - Cellulitis of chest wall - History of Present Illness Consult date: 12/31/16 Requesting physician: Svetlana Schmid Consult reason: Evaluation of sternotomy incision. Chief complaint: Erythema along incision. History of present illness: Mr. Fair is a 76 year old hypertensive man with hypercholesterolemia and known CAD who underwent CABG 2 on June 26, 2016. His postoperative course was uncomplicated and he was discharged home in good condition. Approximately two months after his discharge he was seen by Dr. Bran Stevenson in the office because of persistent erythema along the inferior aspect of the sternotomy incision. He denies any drainage from the incision to date. The patient noticed left hemisternum elevation which began approximately 3 weeks ago. In addition, the patient has had persistent erythema along the inferior aspect of his sternotomy incision. He denies any chills, fever, drainage, pain, or tenderness along the incision. He was evaluated at [facility] emergency department yesterday because of a persistent cough. A chest CT was performed and this showed no evidence of fluid collection along the sternotomy incision. I have been asked to evaluate the patient's sternotomy incision and offer treatment options. Past Med Surg Social Fam HX - Past Medical History Medical history: cancer, coronary artery disease, GERD, hyperlipidemia, hypertension Psychiatric history: no psych history - Past Surgical History Surgical History: coronary bypass (CABG), pacemaker/AICD - Social History Smoking Status: Former smoker Packs per day: 1/2ppd Smokeless Tobacco Status: No Alcohol use: none Drug use: none Occupational status: retired Current living situation: Home - Independent Activity Level: Independent ambulation Recent Out of Country Travel Within the Last 8 Weeks: No Exposure or Possible Exposure to Illness During Travel: No - Family History Mother Living Status: Age at : 80 Cause of : Cancer Hx Family Cancer: Yes (Neck/throat) Father Living Status: Age at : 79 Cause of : CHF Hx Family Cardiac Disorders: Yes (CHF) Medications and Allergies Lisinopril [Zestril] 40 mg PO DAILY 02/14/15 [History] Oxaprozin [Daypro] 600 mg PO BID PRN 02/14/15 [History] Multivit-Min/FA/Lycopen/Lutein [Men 50 Plus Multivitamin Tab] 1 tab PO DAILY [History] Atorvastatin Calcium [Lipitor] 20 mg PO HS 06/24/16 [History] Apixaban [Eliquis] 5 mg PO BID 07/27/16 [History] Furosemide [Lasix] 40 mg PO DAILY 07/27/16 [History] Metoprolol [Lopressor] 50 mg PO BID 07/27/16 [History] Leuprolide Acetate [Lupron Depot] 22.5 mg IM [id number] 08/27/16 [History] Aspirin Enteric Coated [Aspirin EC] 81 mg PO DAILY 12/30/16 [History] Docusate [Colace] 100 mg PO DAILY 12/30/16 [History] HYDROcodone/Acet 5/325 mg [[place] 5-325 mg] 1 tab PO Q6H PRN 12/30/16 [History] Nitroglycerin [Nitrostat] 0.4 mg SL Q5M PRN 12/30/16 [History] dilTIAZem HCl [Diltiazem ER] 240 mg PO DAILY 12/30/16 [History] 3 Allergy/AdvReac Type Severity Reaction Status Date / Time Oxycodone [From Percocet] Allergy Vomiting Verified 12/30/16 12:11 All Systems Review: A 10-system review of systems was performed and is negative for pertinent findings except as documented above in the HPI. Physical Examination Vital Signs, Last 4 Hours Temp Pulse Resp BP Pulse Ox 12/31/16 07:19 98.0 F 76 20 143/81 94 General: Conversant HEENT: Atraumatic, Normocephaly, Trachea midline Neck: No JVD, Normal carotid pulses Cardiac: Reg Rate and Rhythm, Normal S1 and S2, No Murmur Lungs: Normal Breath Sounds, No Wheeze, Rales, Rhonchi Neuro: Alert and responsive, No focal deficits noted Vascular: Normal capillary refill Abdomen: Soft, Non-tender Musculoskeletal: Other (Elevation of the left hemisternum near the sternal manubrial joint. This area is nontender to deep palpation. Area of erythema along the inferior aspect of the sternotomy incision without drainage.) Extremities: No Clubbing, No Cyanosis, No Edema Results 12/31/16 03:18 12/31/16 03:18 Lab Results, Last 24 hours 12/31/16 12/31/16 12/31/16 03:18 03:18 03:18 WBC 7.1 Hgb 11.0 L Hct 33.5 L Plt Count 253 Sodium 136 Potassium 4.1 Chloride 104 Carbon Dioxide 22 BUN 23 Creatinine 1.10 Glucose 105 H Calcium 9.9 Troponin I 0.00 Consult Discharge Plan - Plan Referrals: Mahendra Albert DO [Primary Care Provider] -
--- NOTE | 2016-12-31 08:45 | Event Note ---
Date of Encounter: 12/31/16 Time of Encounter: 08:43 Initially the patient had been scheduled for sternal wire removal on Sunday, January 01, 2017. However, review of the home medication revealed that he is currently on Ellquis. This will need to be stopped for 48 hours prior to surgery. The patient will be scheduled for sternal wire removal on Wednesday, January 04, 2017. This can be performed as an outpatient procedure if the patient is discharged.
[2016-12-31] MEDS ORDERED: Furosemide 20 MG TABLET PO SCH (09:00)
[2016-12-31] MEDS ORDERED: Multivit/Ca/Min/Fe/FA 1 TAB TABLET PO SCH (09:00)
[2016-12-31] MEDS ORDERED: Lisinopril 20 MG TABLET PO SCH (09:00)
[2016-12-31] MEDS ORDERED: Diltiazem CD (24hr) 240 MG CAPSULE PO SCH (09:00)
[2016-12-31] MEDS ORDERED: Aspirin Enteric Coated 81 MG Tablet PO SCH (09:00)
[2016-12-31] MEDS: Nicotine 14 MG PATCH.TD24 TD SCH (09:15)
[2016-12-31 11:27] LABS: INR 1.9; Prothrombin Time 20.5 Seconds (9.4-12.1)
[2016-12-31 11:30] LABS: Activated Partial Thrombo Time 34.4 Seconds (26.0-36.0)
--- NOTE | 2016-12-31 11:35 | Discharge Summary ---
Date of Encounter: 12/31/16 Time of Encounter: 10:25 - Discharge Diagnosis (1) CAD (coronary artery disease) Priority: Primary Status: Acute Comments: Sam Fair is a 76 y/o male with PMH CAD, prostate cancer, PAF and hypertension who presented to [facility] on 12/30/2016 with concern for for infection at sternotomy site. He was found to have pneumonia and possible/suspected cellulitis versus allergic reaction at sternotomy site. He is treated for pneumonia and cellulitis. He was discharged home in stable condition with plan to return on 01/04/2017 for sternal wire removal. 1. Non-purulent cellulitis: to sternotomy incision site (s/p CABG 06/2016). Patient reports persistent uticaria, erythema and now drainage at distal end of sternotomy site since 08/2016. Evaluated by Dr. Rodriguez ([facility]) who noted patient will need removal of sternal wires at the inferior aspect of the sternum. Start doxycycline to cover for possible cellulitis. Plan for patient to return to [facility] on 01/04/2017 for sternal wire removal with Dr. Stevenson, will need to be off Eliquis for 48 hr prior to procedure (planned for outpatient procedure). 2. Pneumonia: chest CTA with new obesity to right upper lobe, concerning for infectious/inflammatory pneumonitis. No recent ATB use. Urinary antigens, respiratory PCR, sputum culture ordered however patient did not want to stay inpatient. Cont Levaquin for total of 7 days. Recommend follow-up with PCP within one week 3. CAD: per hx. S/p CABG 2 on 06/2016. Denies chest pain. Inferior strenal wires to be removed 01/04/2017. Cont home ASA, BB, statin. Will need to be of Eliquis for 48 hr prior to procedure 4. Mediastinal lymph node: chest CTA with stable mediastinal lymph nodes. Patient unaware of lymph nodes and has not been worked up for this. Does have significant smoking history and history of prostate cancer. Patient does not want to stay for inpatient pulmonology consultation. Recommend outpatient referral to pulmonology. 4. PAF: per hx following CABG; s/p ablation. Rate controlled. Resume Eliquis per CTS recs after sternotomy revision 5. Hypertension: per hx. BP controlled. Cont home BP medications. 6. Prostate Cancer: per hx. Follows with oncology at the cancer center. Status post 40 radiation treatments. Can follow up as previously planned. 7. Tobacco use: Current smoker; cessation advised but not likely. Qualifiers: Coronary Disease-Associated Artery/Lesion type: [place] artery [place] vs. transplanted heart: [place] heart Associated angina: with unspecified angina Qualified Code(s): I25.119 - Atherosclerotic heart disease of [place] coronary artery with unspecified angina pectoris (2) PAF (paroxysmal atrial fibrillation) Priority: Primary Status: Acute (3) Hypertension Priority: Primary Status: Acute Qualifiers: Hypertension type: essential hypertension Qualified Code(s): I10 - Essential (primary) hypertension (4) Pneumonia Priority: Primary Status: Acute Qualifiers: Pneumonia type: due to unspecified organism Laterality: right Lung location: upper lobe of lung Qualified Code(s): J18.1 - Lobar pneumonia, unspecified organism (5) Sick sinus syndrome Priority: Primary Status: Acute - Discharge Medications Prescriptions: Doxycycline 100 mg PO BID #14 capsule Levofloxacin [Levaquin] 750 mg PO DAILY #6 tablet Home Medications: Lisinopril [Zestril] 40 mg PO DAILY 02/14/15 [History] Oxaprozin [Daypro] 600 mg PO BID PRN 02/14/15 [History] Multivit-Min/FA/Lycopen/Lutein [Men 50 Plus Multivitamin Tab] 1 tab PO DAILY [History] Atorvastatin Calcium [Lipitor] 20 mg PO HS 06/24/16 [History] Furosemide [Lasix] 40 mg PO DAILY 07/27/16 [History] Metoprolol [Lopressor] 50 mg PO BID 07/27/16 [History] Leuprolide Acetate [Lupron Depot] 22.5 mg IM [id number] 08/27/16 [History] Aspirin Enteric Coated [Aspirin EC] 81 mg PO DAILY 12/30/16 [History] Docusate [Colace] 100 mg PO DAILY 12/30/16 [History] HYDROcodone/Acet 5/325 mg [[place] 5-325 mg] 1 tab PO Q6H PRN 12/30/16 [History] Nitroglycerin [Nitrostat] 0.4 mg SL Q5M PRN 12/30/16 [History] dilTIAZem HCl [Diltiazem ER] 240 mg PO DAILY 12/30/16 [History] Apixaban [Eliquis] 5 mg PO BID #0 12/31/16 [Rx] Doxycycline 100 mg PO BID #14 capsule 12/31/16 [Rx] Levofloxacin [Levaquin] 750 mg PO DAILY #6 tablet 12/31/16 [Rx] Allergies/Adverse Reactions: 3 Allergy/AdvReac Type Severity Reaction Status Date / Time Oxycodone [From Percocet] Allergy Vomiting Verified 12/30/16 12:11 Date of admission: 12/30/16 17:43 Primary care physician: Mahendra Albert Discharging clinician: Svetlana Schmid Anticipated date of discharge: 12/31/16 - Patient Status Disposition: Home, Self-Care Condition: Good Functional capacity at discharge: independent ambulation Overall status at discharge: patient is not back to baseline - Discharge Instructions Instructions: Community-acquired Pneumonia (DC), Cellulitis (DC), Pulmonary Nodules (DC) Follow Up With: Shiela Rodriguez MD [Partnered Physician] - Mahendra Albert DO [Primary Care Provider] - Amanda Wayne MD [Partnered Physician] - Additional Instructions: Dr. Rodriguez's office will contact you regarding planned sternal wire removal on Stop Eliquis 48hours before procedure - Diet and Activity Activity: resume usual activities as tolerated Diet: low fat, low cholesterol Interval History: Seen and examined at bedside, patient is new to me. Information obtained from chart review and patient report. Patient says redness and irritation and drainage to lower sternotomy site has been present for Proxmire 4 months. Says blisters will appear they drain and then go away and reappeared in another area. Denies pain. Does complain of itching. He is already been seen by cardiothoracic surgery he was recommending sternal wire removal. This can be done on outpatient basis. Patient does not want to stay inpatient for treatment of pneumonia or evaluation of pulmonary nodules. Patient advised to stop L Villavicencio 48 hours prior to procedure on Wednesday. Hospital course: Mr. Fair is a 76 year old male - Time Spent with Patient Total time spent providing and/or coordinating discharge services: - Constitutional Vitals: Temp Pulse Resp BP Pulse Ox 98.0 F 76 20 143/81 94 12/31/16 07:19 12/31/16 07:19 12/31/16 07:19 12/31/16 07:19 12/31/16 07:19 General appearance: Present: cooperative, A&O X 3, no acute distress, answers questions appropriately - Head Head exam: Present: atraumatic, normocephalic - Eye Eye exam: Present: PERRL, conjuntiva pink, sclera anicteric Pupils: Present: PERRL - Neck Neck exam general surgery: Present: supple, trachea midline. Absent: lymphadenopathy - Respiratory Respiratory exam: Present: CTAB. Absent: accessory muscle use, rales, rhonchi, wheezes - Cardiovascular Cardiovascular exam: Present: RRR, +S1, +S2. Absent: diastolic murmur, gallop, rubs, systolic murmur Additional comments: Redness, erythema and blistering to inferior sternotomy site. Protruding proximal sternal nodule - GI/Abdominal GI/Abdominal exam: Present: normal bowel sounds, soft, no peritoneal signs. Absent: distended, tenderness - Extremities Exam Extremities exam: Present: warm, radial pulses palpable and symmetrical. Absent : calf tenderness, cyanotic, pedal edema - Neurological Exam Neurological exam: Present: CN II-XII intact, oriented X3, no focal deficits. Absent: pronater drift, facial droop, speech deficit - Skin Skin exam: Present: dry, intact - VTE Reasons for not Prescribing Prophylaxis: Not indicated-Anticoagulated or INR therapeutic
[2016-12-31] MEDS ORDERED: Levofloxacin 750 MG/150 ML 750 MG/150 ML BAG IVPB SCH (18:00)
[2017-01-02 15:40] LABS: CK-MB (CK isoenzymes) 0 % (0-4); CK-MM (CK-isoenzymes) 100 % (96-100)
[2017-01-04 08:05] LABS: CK Total (Ck Isoenzymes) 47 U/L (20-200); CK-BB (CK isoenzymes) 0 % (0-0)
== END 2016-12-31 14:14 | disposition home or self-care (01) ==
LOC: EMEROO 11:54 → 3BNU 11:54
PROVIDERS: ADMIT Nurse Practitioner Family; ATTEND Registered Nurse

== ENCOUNTER 2017-08-01 13:56 | Observation (INO) ==
[2017-08-01 15:26] LABS: Basophils % 0.4 %; Eosinophils # 0.1 K/mcL (0.0-0.6); Eosinophils % 1.4 %; Hemoglobin 11.3 g/dL (12.9-16.9); Immature Granulocytes % 0.2 % (0-4); Lymphocytes # 0.8 K/mcL (0.6-4.6); Lymphocytes % 14.9 %; Mean Corpuscular HGB Conc 33.2 g/dL (31.6-35.5); Mean Corpuscular Volume 93.4 fL (83.0-100.0); Mean Platelet Volume 9.5 fL (9.4-12.4); Monocytes # 0.5 K/mcL (0.0-1.3); Monocytes % 8.1 %; Neutrophils # 4.2 K/mcL (1.6-8.9); Platelet Count 185 K/mcL (140-400); Red Blood Count 3.64 M/mcL (4.19-5.50); Red Cell Distribution Width 15.1 % (11.5-14.5)
--- NOTE | 2017-08-01 15:27 | Emergency Department Note ---
Disposition Clinical Impression: Bladder obstruction Hematuria Qualifiers: Hematuria type: gross Qualified Code(s): R31.0 - Gross hematuria Male Urogenital HPI - General Chief complaint: ED Urogenital-Male Stated complaint: Blood in urine Time Seen by Provider: 08/01/17 14:52 Source: patient Limitations: no limitations Nursing Notes Reviewed: Yes Vital Signs Reviewed: Yes - History of Present Illness HPI Narrative: Patient is a 76-year-old male who presented to [facility] ED on 08/01/17 with chief complaint of painless hematuria since approximately 3 AM this morning. He reports that in June 2015, he had a similar episode of painless hematuria and passing clots. At this time, he was diagnosed with prostate cancer. He underwent surgery and a total of 40 radiation treatments. Patient has not had any issues since he completed his treatments. Patient reports that this morning , he was passing wilder blood and clots, and now reports that he is unable to urinate because he has the sensation that a clot is blocking off his urine stream. He denies having any pelvic pain at this time. Denies nausea, vomiting , fever, chills, weight loss, pain, or swelling. Patient has no further complaints at this time. Pt Subjective Complaint: other (Hematuria) Onset (ago): hour(s) Duration: intermittent Reports: hematuria. Denies: discharge, swelling, mass, rash, dysuria, fever, incontinence - Related Data Home Medications Medication Instructions Recorded Confirmed Lisinopril [Zestril] 40 mg PO DAILY 02/14/15 08/01/17 Oxaprozin [Daypro] 600 mg PO BID PRN 02/14/15 08/01/17 Multivit-Min/FA/Lycopen/Lutein 1 tab PO DAILY 01/27/16 08/01/17 [Men 50 Plus Multivitamin Tab] Atorvastatin Calcium [Lipitor] 20 mg PO HS 06/24/16 08/01/17 Furosemide [Lasix] 40 mg PO DAILY 07/27/16 08/01/17 Metoprolol [Lopressor] 50 mg PO BID 07/27/16 08/01/17 Leuprolide Acetate [Lupron Depot] 22.5 mg IM [id number] 08/27/16 08/01/17 Aspirin Enteric Coated [Aspirin EC] 81 mg PO DAILY 12/30/16 08/01/17 Nitroglycerin [Nitrostat] 0.4 mg SL Q5M PRN 12/30/16 08/01/17 dilTIAZem HCl [Diltiazem ER] 240 mg PO DAILY 12/30/16 08/01/17 HYDROcodone/Acet 5/325 mg [[place] 1 tab PO Q6H PRN 02/10/17 08/01/17 5-325 mg] Previous Rx's Medication Instructions Recorded Apixaban [Eliquis] 5 mg PO BID #0 12/31/16 Allergies Allergy/AdvReac Type Severity Reaction Status Date / Time Oxycodone [From Percocet] Allergy Vomiting Verified 08/01/17 14:26 All systems ED: reviewed and negative except as stated. Review of Systems: As Per HPI Constitutional: Reports: as per HPI. Denies: fever, chills, weakness, weight change Eyes: Reports: as per HPI ENT ED: Reports: as per HPI. Denies: ear pain, throat pain, dental pain, epistaxis, congestion Cardiovascular: Reports: as per HPI. Denies: chest pain, palpitations, dyspnea on exertion, syncope, paroxysmal nocturnal dyspnea Respiratory: Reports: as per HPI. Denies: cough, dyspnea, wheezes, hemoptysis Gastrointestinal: Reports: as per HPI. Denies: abdominal pain, nausea, vomiting Genitourinary: Reports: as per HPI, hematuria. Denies: urgency, testicular mass Integumentary: Reports: as per HPI. Denies: rash, abrasion Neurological: Reports: as per HPI. Denies: headache, weakness, numbness, paresthesias, confusion, abnormal gait, vertigo Psychiatric: Reports: as per HPI. Denies: anxiety, depression, suicidal thoughts, homicidal thoughts, auditory hallucinations, visual hallucinations Past Medical History - Past Medical History Medical history: Reports: cancer, coronary artery disease, GERD, hyperlipidemia , hypertension Surgical history: Reports: coronary bypass (CABG), pacemaker/AICD Psychiatric history: Reports: no psych history - Social History Smoking Status: Current every day smoker Smokeless Tobacco Status: No Alcohol use: Reports: rarely Drug use: Reports: none Physical Exam - General Limitations: no limitations General appearance: alert - Head Head exam: atraumatic, normocephalic, normal inspection - Eye Eye exam: Present: normal appearance, PERRL, EOMI - ENT ENT exam: normal exam, normal oropharynx, mucous membranes moist - Neck Neck exam: Present: normal inspection, full ROM, trachea midline - Chest Chest inspection: Present: normal inspection, symmetric chest wall rise - Respiratory Respiratory exam: Present: normal lung sounds bilaterally. Absent: respiratory distress, accessory muscle use, prolonged expiratory phase - Cardiovascular Cardiovascular exam: Present: regular rate, normal rhythm, normal heart sounds, +S1, +S2. Absent: bradycardia, tachycardia, systolic murmur, diastolic murmur - Abdominal Exam Abdominal Exam: Present: soft, Non-Tender - Neurological Exam Neurological exam: Present: alert, oriented X3 - Psychiatric Psychiatric exam: Present: normal affect, normal mood - Skin Skin exam: Present: warm, dry, intact Course Course Narrative: Patient is a 76-year-old male who presents to the emergency department with a chief complaint of painless hematuria. Patient has not had a prior episode in June 2015, during which time he was diagnosed with prostate cancer. We will obtain PT/INR, urinalysis, CBC and CMP. - Reevaluation(s) Reevaluation #1: Bedside ultrasound demonstrated the presence of a significantly large clot in the bladder. Patient is unable to fully empty his bladder. Patient was seen by Dr. Cobian at bedside. Locke catheter will be placed in order to do a 3-way irrigation. We will contact hospitalist; patient will be admitted. Patient's vitals and labs are stable at this time. Vital Signs Temperature 98.3 F 08/01/17 14:26 Pulse Rate 62 08/01/17 14:26 Respiratory Rate 20 08/01/17 14:26 Blood Pressure 99/65 08/01/17 14:26 O2 Sat by Pulse Oximetry 96 08/01/17 14:26 Temperature 98.4 F 08/01/17 17:52 Pulse Rate 64 08/01/17 17:52 Respiratory Rate 16 08/01/17 17:52 Blood Pressure 152/61 08/01/17 17:52 O2 Sat by Pulse Oximetry 96 08/01/17 17:52 Oxygen Delivery Oxygen Delivery Room Air Urogenital-Male - Lab Data Result diagrams: 08/01/17 15:10 08/01/17 15:10 Lab Results 08/01/17 08/01/17 08/01/17 Range/Units 15:10 15:10 15:10 WBC 5.7 (4.3-11.1) K/mcL RBC 3.64 L (4.19-5.50) M/mcL Hgb 11.3 L (12.9-16.9) g/dL Hct 34.0 L (37.5-50.1) % MCV 93.4 (83.0-100.0) fL MCH 31.0 (28.0-33.3) pg MCHC 33.2 (31.6-35.5) g/dL RDW 15.1 H (11.5-14.5) % Plt Count 185 (140-400) K/mcL MPV 9.5 (9.4-12.4) fL Immature Gran % 0.2 (0-4) % Seg Neutrophils % 75.0 % Lymphocytes % 14.9 % Monocytes % 8.1 % Eosinophils % 1.4 % Basophils % 0.4 % Neutrophils # 4.2 (1.6-8.9) K/mcL Lymphocytes # 0.8 (0.6-4.6) K/mcL Monocytes # 0.5 (0.0-1.3) K/mcL Eosinophils # 0.1 (0.0-0.6) K/mcL Basophils # 0.0 (0.0-0.2) K/mcL PT 16.3 H (9.4-12.1) Seconds INR 1.5 APTT 33.0 (26.0-36.0) Seconds Sodium 134 L (136-145) mEq/L Potassium 4.4 (3.5-5.1) mEq/L Chloride 104 (98-107) mEq/L Carbon Dioxide 23 (23-29) mEq/L BUN 29 H (8-23) mg/dL Creatinine 1.08 (0.70-1.30) mg/dL Est GFR ( Amer) > 60 (> 60) Est GFR (Non-Af Amer) > 60 (> 60) BUN/Creatinine Ratio 27 H (6-26) Glucose 110 H (70-105) mg/dL Calculated Osmolality 284 (280-300) Calcium 9.9 (8.6-10.3) mg/dL Total Bilirubin 0.4 (0.3-1.0) mg/dL AST 18 (13-39) Units/L ALT 16 (7-52) Units/L Alkaline Phosphatase 88 (34-104) Units/L Serum Total Protein 6.6 (6.4-8.9) g/dL Albumin 4.2 (3.5-5.7) g/dL Globulin 2.4 (2.4-3.5) g/dL Albumin/Globulin Ratio 1.8 (1.1-2.2)
[2017-08-01 15:31] LABS: INR 1.5; Prothrombin Time 16.3 Seconds (9.4-12.1)
[2017-08-01] MEDS ORDERED: 0.9 % Sodium Chloride 1,000 ML ONE (15:46)
[2017-08-01 15:49] LABS: Alanine Aminotransferase 16 Units/L (7-52); Albumin 4.2 g/dL (3.5-5.7); Albumin/Globulin Ratio 1.8 (1.1-2.2); Alkaline Phosphatase 88 Units/L (34-104); Aspartate Amino Transferase 18 Units/L (13-39); BUN/Creatinine Ratio 27 (6-26); Bilirubin,Total 0.4 mg/dL (0.3-1.0); Blood Urea Nitrogen 29 mg/dL (8-23); Calcium 9.9 mg/dL (8.6-10.3); Carbon Dioxide 23 mEq/L (23-29); Chloride 104 mEq/L (98-107); Globulin 2.4 g/dL (2.4-3.5); Glucose 110 mg/dL (70-105); Osmolality,Calculated 284 (280-300); Potassium 4.4 mEq/L (3.5-5.1); Sodium 134 mEq/L (136-145); Total Protein 6.6 g/dL (6.4-8.9); eGFR For African Americans > 60 (> 60); eGFR For Non-African Americans > 60 (> 60)
[2017-08-01] MEDS ORDERED: CefTRIAXone 1,000 MG VIAL IM ONE (15:49)
--- NOTE | 2017-08-01 15:51 | Emergency Department Note ---
START Narrative - START START: I examined this patient and my medical decision-making was reviewed with the Resident Physician. I agree with the documented findings, disposition and treatment plan as described except to the extent set forth below. 76-year-old male presents to the emergency room for hematuria. Started in the middle of the night. History of prostate cancer with previous radiation treatments presently 4 years ago. He does take a blood thinner for his heart. We did a bedside ultrasound which showed a significantly large clot noted in the bladder. He is unable to fully empty his bladder when he urinates secondary to the blood clots. Dr. Foster was in the ER and saw the patient at bedside. He will go ahead and place a special Locke catheter in order for us to do a 3-way irrigation. Patient will be admitted to the hospitalist. Labs are stable. Vitals are stable.
--- NOTE | 2017-08-01 16:26 | Urology - Consult Note ---
Date of Encounter: 08/01/17 Time of Encounter: 16:24 - Assessment and Plan (1) Hematuria Current Visit: Yes Status: Acute Assessment and plan: Patient with gross hematuria from on known source at this time. We will need to hold Eliquis tonight and tomorrow. Patient was prepped and draped in normal sterile fashion. A 24-[place] hematuria catheter was then placed into the patient's urethra and advanced into the bladder. Significant resistance around the prostate was encountered. I was able to negotiate a catheter into the patient's bladder. 20 mL's of saline was placed in the balloon. I then manually irrigated the patient's bladder with only a small amount of clots returned. Catheter was then connected to three-way bladder irrigation. Urine remained off-and-on bloody and clear on fast drip irrigation. We will need to continue with three-way irrigation. We will reassess tomorrow morning with manual irrigation. Qualifiers: Hematuria type: gross Qualified Code(s): R31.0 - Gross hematuria Urology CN:HPI Consult date: 08/01/17 Reason for consult Urology: Gross Hematuria Requesting physician: Davion Foote History of present illness: Sam is a 76-year-old male with a history of prostate cancer since post radiation in 2016. Patient's prostate cancer was diagnosed on TURP. Patient states that he has been voiding well until today he had an episode of complete gross hematuria with clots. Patient has been unable to void prior to emergency department and after that initial void with clots and hematuria. Patient has significant lower abdominal discomfort secondary to bladder distention. No nausea vomiting. No fevers. Patient is on Eliquis bid. Patient had a bedside ultrasound performed in the emergency department which revealed a possible clot within the bladder. Difficult to completely tell. Past Med Surg Social Fam HX - Past Medical History Medical history: cancer, coronary artery disease, GERD, hyperlipidemia, hypertension Psychiatric history: no psych history - Past Surgical History Surgical History: coronary bypass (CABG), pacemaker/AICD - Social History Smoking Status: Current every day smoker Smokeless Tobacco Status: No Alcohol use: rarely Drug use: none - Family History Mother Living Status: Hx Family Cancer: Yes (Neck/throat) Father Living Status: Hx Family Cardiac Disorders: Yes (CHF) Medications and Allergies Lisinopril [Zestril] 40 mg PO DAILY 02/14/15 [History] Oxaprozin [Daypro] 600 mg PO BID PRN 02/14/15 [History] Multivit-Min/FA/Lycopen/Lutein [Men 50 Plus Multivitamin Tab] 1 tab PO DAILY [History] Atorvastatin Calcium [Lipitor] 20 mg PO HS 06/24/16 [History] Furosemide [Lasix] 40 mg PO DAILY 07/27/16 [History] Metoprolol [Lopressor] 50 mg PO BID 07/27/16 [History] Leuprolide Acetate [Lupron Depot] 22.5 mg IM [id number] 08/27/16 [History] Aspirin Enteric Coated [Aspirin EC] 81 mg PO DAILY 12/30/16 [History] Nitroglycerin [Nitrostat] 0.4 mg SL Q5M PRN 12/30/16 [History] dilTIAZem HCl [Diltiazem ER] 240 mg PO DAILY 12/30/16 [History] Apixaban [Eliquis] 5 mg PO BID #0 12/31/16 [Rx] HYDROcodone/Acet 5/325 mg [[place] 5-325 mg] 1 tab PO Q6H PRN 02/10/17 [History] 3 Allergy/AdvReac Type Severity Reaction Status Date / Time Oxycodone [From Percocet] Allergy Vomiting Verified 08/01/17 14:26 Review of Systems - Constitutional no chills, no fever(s) - EENT Nose, mouth and throat: no dizziness, no headache(s) - Cardiovascular no chest pain, no dyspnea - Respiratory no cough, no dyspnea - Gastrointestinal abdominal pain, no nausea, no vomiting - Genitourinary as per HPI - Musculoskeletal no back pain, no muscle weakness - Integumentary no erythema, no swelling - Neurological no confusion Exam Initial Vital Signs Temp Pulse Resp BP Pulse Ox 98.3 F 62 20 99/65 96 08/01/17 14:26 08/01/17 14:26 08/01/17 14:26 08/01/17 14:26 08/01/17 14:26 General/Neuological: alert and oriented x 3 Eyes: normal pupils, non-icteric Neck: no lymphadenopathy noted, supple to touch Cardiovascular: RRR, no murmurs Respiratory: normal respiratory effort, clear bilaterally ABD: soft, no masses palpated, good bowel sounds, pain on palpation of lower abdomen where bladder is located Back: no pain on percussion bilaterally : normal phallus, normal scrotum, testicles and epididymides normal, urethral meatus normal. Skin: no rashes noted Musculoskeletal: normal gait, FROMx4 Urology Results - Labs 08/01/17 15:10 08/01/17 15:10 Abnormal lab results RBC 3.64 M/mcL (4.19-5.50) L 08/01/17 15:10 Hgb 11.3 g/dL (12.9-16.9) L 08/01/17 15:10 Hct 34.0 % (37.5-50.1) L 08/01/17 15:10 RDW 15.1 % (11.5-14.5) H 08/01/17 15:10 PT 16.3 Seconds (9.4-12.1) H 08/01/17 15:10 Sodium 134 mEq/L (136-145) L 08/01/17 15:10 BUN 29 mg/dL (8-23) H 08/01/17 15:10 BUN/Creatinine Ratio 27 (6-26) H 08/01/17 15:10 Glucose 110 mg/dL (70-105) H 08/01/17 15:10 Diabetes panel 08/01/17 Range/Units 15:10 Sodium 134 L (136-145) mEq/L Potassium 4.4 (3.5-5.1) mEq/L Chloride 104 (98-107) mEq/L Carbon Dioxide 23 (23-29) mEq/L BUN 29 H (8-23) mg/dL Creatinine 1.08 (0.70-1.30) mg/dL Glucose 110 H (70-105) mg/dL Calcium 9.9 (8.6-10.3) mg/dL AST 18 (13-39) Units/L ALT 16 (7-52) Units/L Alkaline Phosphatase 88 (34-104) Units/L Albumin 4.2 (3.5-5.7) g/dL Calcium panel 08/01/17 Range/Units 15:10 Calcium 9.9 (8.6-10.3) mg/dL Albumin 4.2 (3.5-5.7) g/dL Pituitary panel 08/01/17 Range/Units 15:10 Sodium 134 L (136-145) mEq/L Potassium 4.4 (3.5-5.1) mEq/L Chloride 104 (98-107) mEq/L Carbon Dioxide 23 (23-29) mEq/L BUN 29 H (8-23) mg/dL Creatinine 1.08 (0.70-1.30) mg/dL Glucose 110 H (70-105) mg/dL Calcium 9.9 (8.6-10.3) mg/dL Adrenal panel 08/01/17 Range/Units 15:10 Sodium 134 L (136-145) mEq/L Potassium 4.4 (3.5-5.1) mEq/L Chloride 104 (98-107) mEq/L Carbon Dioxide 23 (23-29) mEq/L BUN 29 H (8-23) mg/dL Creatinine 1.08 (0.70-1.30) mg/dL Glucose 110 H (70-105) mg/dL Calcium 9.9 (8.6-10.3) mg/dL Total Bilirubin 0.4 (0.3-1.0) mg/dL AST 18 (13-39) Units/L ALT 16 (7-52) Units/L Alkaline Phosphatase 88 (34-104) Units/L Albumin 4.2 (3.5-5.7) g/dL All other labs normal. Consult Discharge Plan - Plan Referrals: Mahendra Albert DO [Primary Care Provider] -
--- NOTE | 2017-08-01 19:34 | Internal Med History&Physical ---
Date of Encounter: 08/01/17 Time of Encounter: 06:00 Internal Medicine - H&P: HPI Chief complaint: hematurea History of present illness: Sam is a 76-year-old male with a history of prostate cancer that was diagnosed on TURP status post radiation in 2016 who presented with episode of complete gross hematuria with clots associated with lower abdominal discomfort secondary to bladder distention. ultrasound performed in the emergency department revealed a possible clot within the bladder. urology was consulted and patient was admitted for further evaluation Past Med Surg Social Fam HX - Past Medical History Medical history: cancer, coronary artery disease, GERD, hyperlipidemia, hypertension Psychiatric history: no psych history - Past Surgical History Surgical History: coronary bypass (CABG), pacemaker/AICD - Social History Smoking Status: Current every day smoker Smokeless Tobacco Status: No Alcohol use: rarely Drug use: none - Family History Mother Living Status: Hx Family Cancer: Yes (Neck/throat) Father Living Status: Hx Family Cardiac Disorders: Yes (CHF) Internal Medicine - H&P: Meds Lisinopril [Zestril] 40 mg PO DAILY 02/14/15 [History] Oxaprozin [Daypro] 600 mg PO BID PRN 02/14/15 [History] Multivit-Min/FA/Lycopen/Lutein [Men 50 Plus Multivitamin Tab] 1 tab PO DAILY [History] Atorvastatin Calcium [Lipitor] 20 mg PO HS 06/24/16 [History] Furosemide [Lasix] 40 mg PO DAILY 07/27/16 [History] Metoprolol [Lopressor] 50 mg PO BID 07/27/16 [History] Leuprolide Acetate [Lupron Depot] 22.5 mg IM [id number] 08/27/16 [History] Aspirin Enteric Coated [Aspirin EC] 81 mg PO DAILY 12/30/16 [History] Nitroglycerin [Nitrostat] 0.4 mg SL Q5M PRN 12/30/16 [History] dilTIAZem HCl [Diltiazem ER] 240 mg PO DAILY 12/30/16 [History] HYDROcodone/Acet 5/325 mg [[place] 5-325 mg] 1 tab PO Q6H PRN 02/10/17 [History] 3 Allergy/AdvReac Type Severity Reaction Status Date / Time Oxycodone [From Percocet] Allergy Vomiting Verified 08/01/17 14:26 All Systems PM: A 10-system review of systems was performed and is negative for pertinent findings except as documented above in the HPI. - Constitutional Constitutional: no chills, no fever(s), no night sweats - Cardiovascular Cardiovascular ROS IM: no chest pain, no diaphoresis, no dyspnea, no lightheadedness, no palpitations, no syncope - Respiratory Respiratory: no cough, no dyspnea, no wheezing, no excessive phlegm production - Gastrointestinal Gastrointestinal: no abdominal pain, no diarrhea, no hematemesis, no hematochezia, no melena, no nausea, no vomiting - Genitourinary Genitourinary ROS male: hematuria - Neurological Neurological ROS: no confusion, no convulsions, no focal weakness, no numbness, no tingling, no tremor(s) - Constitutional Vitals: Temp Pulse Resp BP Pulse Ox 98.4 F 64 16 152/61 96 08/01/17 17:52 08/01/17 17:52 08/01/17 17:52 08/01/17 17:52 08/01/17 17:52 General appearance: Present: A&O X 3 - Head Head exam: Present: atraumatic, normocephalic - Neck Neck exam general surgery: Present: supple, trachea midline. Absent: lymphadenopathy - Respiratory Respiratory exam: Present: CTAB. Absent: accessory muscle use, rales, rhonchi, wheezes - Cardiovascular Cardiovascular exam: Present: RRR, +S1, +S2. Absent: diastolic murmur, gallop, rubs, systolic murmur - GI/Abdominal GI/Abdominal exam: Present: normal bowel sounds, soft, no peritoneal signs. Absent: distended, tenderness - Extremities Exam Extremities exam: Present: warm, radial pulses palpable and symmetrical. Absent : calf tenderness, cyanotic, pedal edema Internal Med - H&P Results - Labs CBC & Chem 7: 08/05/17 07:11 08/05/17 07:11 - Assessment and plan (1) Hematuria Status: Resolved Assessment and plan: ASSESSMENT: Hematurea in the sitiing of h/p prostate cancer and chronic anticoagulation ,24 -[place] hematuria catheter was then placed into the patient's urethra and advanced into the bladder by urology PLAN: - hold Eliquis tonight and tomorrow. - IVF - NPO - H/H now and q 8 hr - Type and screen 2 U PRBC - Protonix 40 mg IV QD/BID - O2 to keep SpO2 > 92% - CBCD, BMP, INR/PTT in AM - Compression stocking BLE for DVT prophylaxis Qualifiers: Hematuria type: gross Qualified Code(s): R31.0 - Gross hematuria (2) CAD (coronary artery disease) Status: Chronic Assessment and plan: We will cont home meds Qualifiers: Coronary Disease-Associated Artery/Lesion type: [place] artery [place] vs. transplanted heart: [place] heart Associated angina: with unspecified angina Qualified Code(s): I25.119 - Atherosclerotic heart disease of [place] coronary artery with unspecified angina pectoris (3) Aneurysm, ascending aorta Status: Chronic (4) Hypertension Status: Chronic Assessment and plan: We will cont home meds Qualifiers: Hypertension type: essential hypertension Qualified Code(s): I10 - Essential (primary) hypertension (5) Prostate cancer Status: Chronic Assessment and plan: Stable (6) PAF (paroxysmal atrial fibrillation) Status: Chronic Assessment and plan: We will cont home meds (7) DVT prophylaxis Status: Acute Assessment and plan: We will place SCDs - Time Spent With Patient Total time spent is greater than 50% in coordination of care (as documented) at patient's floor/unit and/or counseling patient:
[2017-08-01] MEDS ORDERED: Nitroglycerin 0.4 MG TAB.SUBL SL PRN (19:52)
[2017-08-01] MEDS ORDERED: Diclofenac Sodium (24 HR) 100 MG TABLET PO PRN (19:52)
[2017-08-01] MEDS: Mag Hydrox/Al Hydrox/Simeth 30 ML UDC PO PRN (21:03)
[2017-08-01 23:05] LABS: Hematocrit 28.6 % (37.5-50.1)
[2017-08-02] MEDS: Mag Hydrox/Al Hydrox/Simeth 30 ML UDC PO PRN ×3 (03:02→20:30)
[2017-08-02 05:40] LABS: Basophils % 0.1 %; Eosinophils # 0.1 K/mcL (0.0-0.6); Hematocrit 29.5 % (37.5-50.1); Immature Granulocytes % 0.4 % (0-4); Lymphocytes # 0.8 K/mcL (0.6-4.6); Lymphocytes % 10.9 %; Mean Corpuscular HGB Conc 33.9 g/dL (31.6-35.5); Mean Corpuscular Hemoglobin 31.8 pg (28.0-33.3); Mean Corpuscular Volume 93.9 fL (83.0-100.0); Mean Platelet Volume 9.9 fL (9.4-12.4); Monocytes # 0.5 K/mcL (0.0-1.3); Monocytes % 7.7 %; Neutrophils # 5.5 K/mcL (1.6-8.9); Platelet Count 176 K/mcL (140-400); Red Blood Count 3.14 M/mcL (4.19-5.50); Red Cell Distribution Width 15.4 % (11.5-14.5); Segmented Neutrophils % 79.9 %
[2017-08-02 06:05] LABS: BUN/Creatinine Ratio 24 (6-26); Blood Urea Nitrogen 24 mg/dL (8-23); Calcium 9.5 mg/dL (8.6-10.3); Carbon Dioxide 24 mEq/L (23-29); Chloride 103 mEq/L (98-107); Glucose 166 mg/dL (70-105); Osmolality,Calculated 288 (280-300); Potassium 4.2 mEq/L (3.5-5.1); Sodium 135 mEq/L (136-145); eGFR For African Americans > 60 (> 60); eGFR For Non-African Americans > 60 (> 60)
[2017-08-02] MEDS: Lisinopril 20 MG TABLET PO SCH (07:14)
[2017-08-02] MEDS: Furosemide 20 MG TABLET PO SCH (07:14)
[2017-08-02] MEDS: Multivit/Ca/Min/Fe/FA 1 TAB TABLET PO SCH (07:14)
[2017-08-02] MEDS: Diltiazem CD (24hr) 240 MG CAPSULE PO SCH (07:14)
--- NOTE | 2017-08-02 07:53 | Urology Progress Note ---
Date of Encounter: 08/02/17 Time of Encounter: 07:52 - Assessment and Plan (1) Hematuria Current Visit: Yes Status: Acute Assessment and plan: I manually irrigated the patient's catheter with a small amount of clots returned. We will need to continue with continuous bladder irrigation at this time. Qualifiers: Hematuria type: gross Qualified Code(s): R31.0 - Gross hematuria Progress Note Narrative: patient seen. patient feeling ok. still with some blood in catheter. clot was irrigated out last night. Objective Initial Vital Signs Temp Pulse Resp BP Pulse Ox 98.3 F 62 20 99/65 96 08/01/17 14:26 08/01/17 14:26 08/01/17 14:26 08/01/17 14:26 08/01/17 14:26 - General physical appearance Present: well developed, well nourished - Respiratory Present: normal expansion, normal respiratory effort - Abdomen Present: soft - Genitourinary Present: other (urine slighlty bloody in tubing) - Labs 08/02/17 04:19 08/02/17 04:19 Diabetes panel 08/02/17 Range/Units 04:19 Sodium 135 L (136-145) mEq/L Potassium 4.2 (3.5-5.1) mEq/L Chloride 103 (98-107) mEq/L Carbon Dioxide 24 (23-29) mEq/L BUN 24 H (8-23) mg/dL Creatinine 1.00 (0.70-1.30) mg/dL Glucose 166 H (70-105) mg/dL Calcium 9.5 (8.6-10.3) mg/dL Calcium panel 08/02/17 Range/Units 04:19 Calcium 9.5 (8.6-10.3) mg/dL Pituitary panel 08/02/17 Range/Units 04:19 Sodium 135 L (136-145) mEq/L Potassium 4.2 (3.5-5.1) mEq/L Chloride 103 (98-107) mEq/L Carbon Dioxide 24 (23-29) mEq/L BUN 24 H (8-23) mg/dL Creatinine 1.00 (0.70-1.30) mg/dL Glucose 166 H (70-105) mg/dL Calcium 9.5 (8.6-10.3) mg/dL Adrenal panel 05/21/18 Range/Units 04:19 Sodium 135 L (136-145) mEq/L Potassium 4.2 (3.5-5.1) mEq/L Chloride 103 (98-107) mEq/L Carbon Dioxide 24 (23-29) mEq/L BUN 24 H (8-23) mg/dL Creatinine 1.00 (0.70-1.30) mg/dL Glucose 166 H (70-105) mg/dL Calcium 9.5 (8.6-10.3) mg/dL Consult Discharge Plan - Plan Referrals: Mahendra Albert DO [Primary Care Provider] -
[2017-08-02] MEDS: *HR* HYDROcodone/Acet 5/325 mg TABLET PO PRN (09:41)
[2017-08-02] MEDS: cefTRIAXone 1,000 MG in Water for inj. (sterile) 20 ML 10 ML IVP SCH (13:47)
--- NOTE | 2017-08-02 14:33 | Internal Med Progress Note ---
Date of Encounter: 08/02/17 Time of Encounter: 11:00 - Assessment and plan (1) Hematuria Current Visit: Yes Status: Acute Assessment and plan: Continue bladder irrigation. 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 Urology following. Continue to hold ELiquis. Continue bladder irrigation. We will place patient on IV antibiotics for now due to urologic procedure and hematuria. Monitor blood counts closely. Avoid anticoagulation Qualifiers: Hematuria type: gross Qualified Code(s): R31.0 - Gross hematuria (2) Prostate cancer Current Visit: No Status: Chronic Assessment and plan: Status post radiation therapy. Follow-up with urology and cancer Center after discharge. Receives Lupron every 3 months. (3) CAD (coronary artery disease) Current Visit: Yes Status: Chronic Assessment and plan: No chest pain. Continue home medications. Holding aspirin for now due to hematuria Qualifiers: Coronary Disease-Associated Artery/Lesion type: [place] artery [place] vs. transplanted heart: [place] heart Associated angina: with unspecified angina Qualified Code(s): I25.119 - Atherosclerotic heart disease of [place] coronary artery with unspecified angina pectoris (4) Hypertension Current Visit: Yes Status: Chronic Assessment and plan: Blood pressure is well controlled. Continue home medications including lisinopril, Cardizem Qualifiers: Hypertension type: essential hypertension Qualified Code(s): I10 - Essential (primary) hypertension (5) Aneurysm, ascending aorta Current Visit: No Status: Chronic Assessment and plan: No acute issues (6) PAF (paroxysmal atrial fibrillation) Current Visit: Yes Status: Chronic Assessment and plan: Rate controlled. Was on anticoagulation with Eliquis. On hold now for hematuria. Continue Cardizem (7) DVT prophylaxis Current Visit: Yes Status: Acute Assessment and plan: SCDs - Time Spent With Patient Total time spent is greater than 50% in coordination of care (as documented) at patient's floor/unit and/or counseling patient: - Subjective Interval history: Patient is doing better today. He does report some pain at his urethral due to [place] catheter. Was evaluated by urology earlier today and is receiving bladder irrigation. No fever or chills reported overnight. - Constitutional Vitals: Temp Pulse Resp BP Pulse Ox 97.9 F 65 16 113/71 94 08/02/17 11:12 08/02/17 11:12 08/02/17 11:12 08/02/17 11:12 08/02/17 11:12 General appearance: Present: cooperative, mild distress, A&O X 3, pleasant, answers questions appropriately - Neck Neck exam general surgery: Present: supple, trachea midline. Absent: lymphadenopathy - Respiratory Respiratory exam: Present: CTAB. Absent: accessory muscle use, rales, rhonchi, wheezes - Cardiovascular Cardiovascular exam: Present: irregular rhythm, +S1, +S2. Absent: diastolic murmur, gallop, rubs, systolic murmur - GI/Abdominal GI/Abdominal exam: Present: normal bowel sounds, soft, no peritoneal signs. Absent: distended, tenderness - Extremities Exam Extremities exam: Present: warm, radial pulses palpable and symmetrical. Absent : calf tenderness, cyanotic, pedal edema - Neurological Exam Neurological exam: Present: CN II-XII intact, oriented X3, no focal deficits. Absent: facial droop, speech deficit - Skin Skin exam: Present: dry, intact Internal Medicine: Result - Labs CBC & Chem 7: 08/02/17 04:19 08/02/17 04:19 Labs: Short CBC 08/01/17 08/02/17 Range/Units 22:44 04:19 WBC 6.9 (4.3-11.1) K/mcL Hgb 10.0 L 10.0 L (12.9-16.9) g/dL Hct 28.6 L 29.5 L (37.5-50.1) % Plt Count 176 (140-400) K/mcL Neutrophils # 5.5 (1.6-8.9) K/mcL BMP 08/02/17 04:19 Sodium 135 L Potassium 4.2 Chloride 103 Carbon Dioxide 24 BUN 24 H Creatinine 1.00 Glucose 166 H Calcium 9.5 - ABG Interpretation ABG results: PT/INR, D-dimer PT 16.3 Seconds (9.4-12.1) H 08/01/17 15:10 Consult Discharge Plan - Plan Referrals: Mahendra Albert DO [Primary Care Provider] -
--- NOTE | 2017-08-02 17:30 | Urology Progress Note ---
Date of Encounter: 08/02/17 Time of Encounter: 17:29 - Assessment and Plan (1) Hematuria Current Visit: Yes Status: Acute Assessment and plan: resolving. hopefully will resolve without surgical intervention. Qualifiers: Hematuria type: gross Qualified Code(s): R31.0 - Gross hematuria Progress Note Narrative: hematuria getting better. no pain Objective Initial Vital Signs Temp Pulse Resp BP Pulse Ox 98.3 F 62 20 99/65 96 08/01/17 14:26 08/01/17 14:26 08/01/17 14:26 08/01/17 14:08/01/17 14:26 - Additional Exam light hematuria on slow drip - Labs 08/02/17 04:19 08/02/17 04:19 Diabetes panel 08/02/17 Range/Units 04:19 Sodium 135 L (136-145) mEq/L Potassium 4.2 (3.5-5.1) mEq/L Chloride 103 (98-107) mEq/L Carbon Dioxide 24 (23-29) mEq/L BUN 24 H (8-23) mg/dL Creatinine 1.00 (0.70-1.30) mg/dL Glucose 166 H (70-105) mg/dL Calcium 9.5 (8.6-10.3) mg/dL Calcium panel 08/02/17 Range/Units 04:19 Calcium 9.5 (8.6-10.3) mg/dL Pituitary panel 08/02/17 Range/Units 04:19 Sodium 135 L (136-145) mEq/L Potassium 4.2 (3.5-5.1) mEq/L Chloride 103 (98-107) mEq/L Carbon Dioxide 24 (23-29) mEq/L BUN 24 H (8-23) mg/dL Creatinine 1.00 (0.70-1.30) mg/dL Glucose 166 H (70-105) mg/dL Calcium 9.5 (8.6-10.3) mg/dL Adrenal panel 08/02/17 Range/Units 04:19 Sodium 135 L (136-145) mEq/L Potassium 4.2 (3.5-5.1) mEq/L Chloride 103 (98-107) mEq/L Carbon Dioxide 24 (23-29) mEq/L BUN 24 H (8-23) mg/dL Creatinine 1.00 (0.70-1.30) mg/dL Glucose 166 H (70-105) mg/dL Calcium 9.5 (8.6-10.3) mg/dL Consult Discharge Plan - Plan Referrals: Mahendra Albert DO [Primary Care Provider] -
[2017-08-03] MEDS ORDERED: Ondansetron 4 MG/2 ML VIAL IVP PRN (02:26)
[2017-08-03 04:45] LABS: Basophils % 0.2 %; Eosinophils # 0.1 K/mcL (0.0-0.6); Eosinophils % 0.7 %; Hemoglobin 9.5 g/dL (12.9-16.9); Immature Granulocytes % 0.4 % (0-4); Lymphocytes # 0.7 K/mcL (0.6-4.6); Lymphocytes % 8.3 %; Mean Corpuscular HGB Conc 32.8 g/dL (31.6-35.5); Mean Corpuscular Hemoglobin 30.8 pg (28.0-33.3); Mean Corpuscular Volume 94.2 fL (83.0-100.0); Monocytes # 0.6 K/mcL (0.0-1.3); Monocytes % 6.3 %; Neutrophils # 7.5 K/mcL (1.6-8.9); Platelet Count 169 K/mcL (140-400); Red Blood Count 3.08 M/mcL (4.19-5.50); Red Cell Distribution Width 15.3 % (11.5-14.5); Segmented Neutrophils % 84.1 %
[2017-08-03 05:05] LABS: BUN/Creatinine Ratio 24 (6-26); Blood Urea Nitrogen 22 mg/dL (8-23); Calcium 9.3 mg/dL (8.6-10.3); Carbon Dioxide 25 mEq/L (23-29); Chloride 102 mEq/L (98-107); Glucose 138 mg/dL (70-105); Osmolality,Calculated 286 (280-300); Potassium 4.1 mEq/L (3.5-5.1); Sodium 135 mEq/L (136-145); eGFR For African Americans > 60 (> 60); eGFR For Non-African Americans > 60 (> 60)
[2017-08-03] MEDS: cefTRIAXone 1,000 MG in Water for inj. (sterile) 20 ML 10 ML IVP SCH (07:33)
[2017-08-03] MEDS: Furosemide 20 MG TABLET PO SCH (07:33)
[2017-08-03] MEDS: Diltiazem CD (24hr) 240 MG CAPSULE PO SCH (07:33)
[2017-08-03] MEDS: Multivit/Ca/Min/Fe/FA 1 TAB TABLET PO SCH (07:34)
[2017-08-03] MEDS: Lisinopril 20 MG TABLET PO SCH (07:34)
--- NOTE | 2017-08-03 09:02 | Internal Med Progress Note ---
Date of Encounter: 08/03/17 Time of Encounter: 09:00 - Assessment and plan (1) Hematuria Current Visit: Yes Status: Acute Assessment and plan: Continue bladder irrigation. 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 Urology following. Continue to hold ELiquis. Continue bladder irrigation. We will place patient on IV antibiotics for now due to urologic procedure and hematuria. Monitor blood counts closely. Avoid anticoagulation. Hemodynamically stable H&H stable [place] catheter still has hematuria but some draining is light, but bad is red. Plan: Urology following, recommendations appreciated Appreciate Urology recs on DC vs restarting Eliquis Appreciate Urology recs if patient needs abx on discharge. Qualifiers: Hematuria type: gross Qualified Code(s): R31.0 - Gross hematuria (2) Prostate cancer Current Visit: No Status: Chronic Assessment and plan: Status post radiation therapy. Receives Lupron every 3 months. Follow-up with urology and cancer Center after discharge. (3) CAD (coronary artery disease) Current Visit: Yes Status: Chronic Assessment and plan: Continue home medications. Holding aspirin for now due to hematuria No chest pain. Qualifiers: Coronary Disease-Associated Artery/Lesion type: [place] artery [place] vs. transplanted heart: [place] heart Associated angina: with unspecified angina Qualified Code(s): I25.119 - Atherosclerotic heart disease of [place] coronary artery with unspecified angina pectoris (4) Hypertension Current Visit: Yes Status: Chronic Assessment and plan: Blood pressure is well controlled. Continue lisinopril, Cardizem, lopressor Qualifiers: Hypertension type: essential hypertension Qualified Code(s): I10 - Essential (primary) hypertension (5) Aneurysm, ascending aorta Current Visit: No Status: Chronic Assessment and plan: No acute issues (6) PAF (paroxysmal atrial fibrillation) Current Visit: Yes Status: Chronic Assessment and plan: Rate controlled. Was on anticoagulation with Eliquis. On hold now for hematuria. Continue Cardizem, lopressor (7) DVT prophylaxis Current Visit: Yes Status: Acute Assessment and plan: SCDs - Time Spent With Patient Total time spent is greater than 50% in coordination of care (as documented) at patient's floor/unit and/or counseling patient: - Subjective Interval history: No acute events. Patient states hematuria is now "off and on" Had complaints of vomiting but he states it was because he did not have his Zantac. Denies fevers/chills, abdominal pain. - Constitutional Vitals: Temp Pulse Resp BP Pulse Ox 98.5 F 66 15 111/70 93 08/03/17 06:23 08/03/17 06:23 08/03/17 06:23 08/03/17 06:23 08/03/17 06:23 General appearance: Present: cooperative, mild distress, A&O X 3, pleasant, answers questions appropriately - Head Head exam: Present: atraumatic, normocephalic - Eye Eye exam: Present: PERRL, conjuntiva pink, sclera anicteric Pupils: Present: PERRL - Neck Neck exam general surgery: Present: supple, trachea midline. Absent: lymphadenopathy - Respiratory Respiratory exam: Present: CTAB. Absent: accessory muscle use, rales, rhonchi, wheezes - Cardiovascular Cardiovascular exam: Present: irregular rhythm, +S1, +S2. Absent: diastolic murmur, gallop, rubs, systolic murmur - GI/Abdominal GI/Abdominal exam: Present: normal bowel sounds, soft, no peritoneal signs. Absent: distended, tenderness - Extremities Exam Extremities exam: Present: warm, radial pulses palpable and symmetrical. Absent : calf tenderness, cyanotic, pedal edema - Neurological Exam Neurological exam: Present: CN II-XII intact, oriented X3, no focal deficits. Absent: pronater drift, facial droop, speech deficit - Skin Skin exam: Present: dry, intact Internal Medicine: Result - Labs CBC & Chem 7: 08/03/17 04:00 08/03/17 04:00 Labs: Short CBC 08/03/17 Range/Units 04:00 WBC 8.9 (4.3-11.1) K/mcL Hgb 9.5 L (12.9-16.9) g/dL Hct 29.0 L (37.5-50.1) % Plt Count 169 (140-400) K/mcL Neutrophils # 7.5 (1.6-8.9) K/mcL BMP 08/03/17 04:00 Sodium 135 L Potassium 4.1 Chloride 102 Carbon Dioxide 25 BUN 22 Creatinine 0.92 Glucose 138 H Calcium 9.3 - ABG Interpretation ABG results: PT/INR, D-dimer PT 16.3 Seconds (9.4-12.1) H 08/01/17 15:10 Consult Discharge Plan - Plan Referrals: Mahendra Albert DO [Primary Care Provider] -
[2017-08-03] MEDS: Famotidine 20 MG TABLET PO SCH ×2 (09:25→21:48)
[2017-08-03] MEDS: *HR* HYDROcodone/Acet 5/325 mg TABLET PO PRN (16:02)
--- NOTE | 2017-08-03 16:49 | Urology Progress Note ---
Date of Encounter: 08/03/17 Time of Encounter: 16:48 - Assessment and Plan (1) Hematuria Current Visit: Yes Status: Acute Assessment and plan: Clot irrigated today is likely old and not artist's representative of new bleeding. We will likely proceed with CT pelvis to evaluate if further clot is present within the bladder. Qualifiers: Hematuria type: gross Qualified Code(s): R31.0 - Gross hematuria Progress Note Narrative: Still having hematuria issues Objective Initial Vital Signs Temp Pulse Resp BP Pulse Ox 98.3 F 62 20 99/65 96 08/01/17 14:26 08/01/17 14:26 08/01/17 14:26 08/01/17 14:26 08/01/17 14:26 - General physical appearance Present: no distress - Additional Exam Hematuria catheter irrigated. Able to irrigate at least 100 mL of black clot. CBI running much clearer after clot irrigated - Labs 08/03/17 04:00 08/03/17 04:00 Diabetes panel 08/03/17 Range/Units 04:00 Sodium 135 L (136-145) mEq/L Potassium 4.1 (3.5-5.1) mEq/L Chloride 102 (98-107) mEq/L Carbon Dioxide 25 (23-29) mEq/L BUN 22 (8-23) mg/dL Creatinine 0.92 (0.70-1.30) mg/dL Glucose 138 H (70-105) mg/dL Calcium 9.3 (8.6-10.3) mg/dL Calcium panel 08/03/17 Range/Units 04:00 Calcium 9.3 (8.6-10.3) mg/dL Pituitary panel 08/03/17 Range/Units 04:00 Sodium 135 L (136-145) mEq/L Potassium 4.1 (3.5-5.1) mEq/L Chloride 102 (98-107) mEq/L Carbon Dioxide 25 (23-29) mEq/L BUN 22 (8-23) mg/dL Creatinine 0.92 (0.70-1.30) mg/dL Glucose 138 H (70-105) mg/dL Calcium 9.3 (8.6-10.3) mg/dL Adrenal panel 08/03/17 Range/Units 04:00 Sodium 135 L (136-145) mEq/L Potassium 4.1 (3.5-5.1) mEq/L Chloride 102 (98-107) mEq/L Carbon Dioxide 25 (23-29) mEq/L BUN 22 (8-23) mg/dL Creatinine 0.92 (0.70-1.30) mg/dL Glucose 138 H (70-105) mg/dL Calcium 9.3 (8.6-10.3) mg/dL Consult Discharge Plan - Plan Referrals: Mahendra Albert DO [Primary Care Provider] -
[2017-08-04 05:30] LABS: Basophils % 0.4 %; Eosinophils # 0.2 K/mcL (0.0-0.6); Eosinophils % 2.4 %; Hematocrit 28.5 % (37.5-50.1); Hemoglobin 9.2 g/dL (12.9-16.9); Immature Granulocytes % 0.4 % (0-4); Lymphocytes # 0.9 K/mcL (0.6-4.6); Lymphocytes % 12.4 %; Mean Corpuscular HGB Conc 32.3 g/dL (31.6-35.5); Mean Corpuscular Hemoglobin 30.9 pg (28.0-33.3); Mean Corpuscular Volume 95.6 fL (83.0-100.0); Mean Platelet Volume 10.1 fL (9.4-12.4); Monocytes # 0.7 K/mcL (0.0-1.3); Monocytes % 9.1 %; Neutrophils # 5.7 K/mcL (1.6-8.9); Platelet Count 165 K/mcL (140-400); Red Blood Count 2.98 M/mcL (4.19-5.50); Red Cell Distribution Width 15.5 % (11.5-14.5); Segmented Neutrophils % 75.3 %
[2017-08-04 05:50] LABS: BUN/Creatinine Ratio 22 (6-26); Blood Urea Nitrogen 23 mg/dL (8-23); Calcium 9.3 mg/dL (8.6-10.3); Carbon Dioxide 26 mEq/L (23-29); Chloride 105 mEq/L (98-107); Glucose 144 mg/dL (70-105); Osmolality,Calculated 286 (280-300); Potassium 4.4 mEq/L (3.5-5.1); Sodium 135 mEq/L (136-145); eGFR For African Americans > 60 (> 60); eGFR For Non-African Americans > 60 (> 60)
--- NOTE | 2017-08-04 07:09 | Urology Progress Note ---
Date of Encounter: 08/04/17 Time of Encounter: 07:07 - Assessment and Plan (1) Hematuria Current Visit: Yes Status: Acute Assessment and plan: Improving with clot irrigation. Based on CT scan I suspect I have a majority of the clot irrigated from his bladder. We will reassess this afternoon. Hopefully will not require OR management Qualifiers: Hematuria type: gross Qualified Code(s): R31.0 - Gross hematuria Progress Note Narrative: hematuria improving. Objective Initial Vital Signs Temp Pulse Resp BP Pulse Ox 98.3 F 62 20 99/65 96 08/01/17 14:26 08/01/17 14:26 08/01/17 14:26 08/01/17 14:26 08/01/17 14:26 - General physical appearance Present: no distress - Additional Exam irrigated 20-30 cc more clot from bladder. - Labs 08/04/17 04:29 08/04/17 04:29 Diabetes panel 08/04/17 Range/Units 04:29 Sodium 135 L (136-145) mEq/L Potassium 4.4 (3.5-5.1) mEq/L Chloride 105 (98-107) mEq/L Carbon Dioxide 26 (23-29) mEq/L BUN 23 (8-23) mg/dL Creatinine 1.03 (0.70-1.30) mg/dL Glucose 144 H (70-105) mg/dL Calcium 9.3 (8.6-10.3) mg/dL Calcium panel 08/04/17 Range/Units 04:29 Calcium 9.3 (8.6-10.3) mg/dL Pituitary panel 08/04/17 Range/Units 04:29 Sodium 135 L (136-145) mEq/L Potassium 4.4 (3.5-5.1) mEq/L Chloride 105 (98-107) mEq/L Carbon Dioxide 26 (23-29) mEq/L BUN 23 (8-23) mg/dL Creatinine 1.03 (0.70-1.30) mg/dL Glucose 144 H (70-105) mg/dL Calcium 9.3 (8.6-10.3) mg/dL Adrenal panel 08/04/17 Range/Units 04:29 Sodium 135 L (136-145) mEq/L Potassium 4.4 (3.5-5.1) mEq/L Chloride 105 (98-107) mEq/L Carbon Dioxide 26 (23-29) mEq/L BUN 23 (8-23) mg/dL Creatinine 1.03 (0.70-1.30) mg/dL Glucose 144 H (70-105) mg/dL Calcium 9.3 (8.6-10.3) mg/dL Consult Discharge Plan - Plan Referrals: Mahendra Albert DO [Primary Care Provider] -
--- NOTE | 2017-08-04 08:13 | Internal Med Progress Note ---
Date of Encounter: 08/04/17 Time of Encounter: 08:09 - Assessment and plan (1) Hematuria Current Visit: Yes Status: Acute Assessment and plan: Continue bladder irrigation. 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 Urology following. Continue to hold ELiquis. Continue bladder irrigation. We will place patient on IV antibiotics for now due to urologic procedure and hematuria. Monitor blood counts closely. Avoid anticoagulation. Hemodynamically stable H&H stable Locke catheter still has hematuria but some draining is light, but bad is red. Urology to reassess patient today. Plan: Urology following, recommendations appreciated Continue to hold Eliquis. Continue Rocephin for now. Qualifiers: Hematuria type: gross Qualified Code(s): R31.0 - Gross hematuria (2) Prostate cancer Current Visit: No Status: Chronic Assessment and plan: Status post radiation therapy. Receives Lupron every 3 months. Follow-up with urology and cancer Center after discharge. [place] contributing to hematuria (3) CAD (coronary artery disease) Current Visit: Yes Status: Chronic Assessment and plan: Continue home medications. Holding aspirin for now due to hematuria Qualifiers: Coronary Disease-Associated Artery/Lesion type: [place] artery [place] vs. transplanted heart: [place] heart Associated angina: with unspecified angina Qualified Code(s): I25.119 - Atherosclerotic heart disease of [place] coronary artery with unspecified angina pectoris (4) Hypertension Current Visit: Yes Status: Chronic Assessment and plan: Controlled Continue lisinopril, Cardizem, lopressor Qualifiers: Hypertension type: essential hypertension Qualified Code(s): I10 - Essential (primary) hypertension (5) Aneurysm, ascending aorta Current Visit: No Status: Chronic Assessment and plan: No acute issues Will make sure patient to follow-up as outpatient CT yesterday did see interval increase. (6) PAF (paroxysmal atrial fibrillation) Current Visit: Yes Status: Chronic Assessment and plan: Rate controlled. Continue Cardizem, lopressor Was on anticoagulation with Eliquis. Holding due to hematuria (7) DVT prophylaxis Current Visit: Yes Status: Acute Assessment and plan: SCDs - Time Spent With Patient Total time spent is greater than 50% in coordination of care (as documented) at patient's floor/unit and/or counseling patient: - Subjective Interval history: No acute events. Denies fevers/chills, abdominal pain. Appetite improved today, would like food. Hematuria patient states was irrigated today and still many clots. - Constitutional Vitals: Temp Pulse Resp BP Pulse Ox 97.8 F 60 15 131/81 94 08/04/17 07:06 08/04/17 07:06 08/04/17 07:06 08/04/17 07:06 08/04/17 07:06 General appearance: Present: cooperative, mild distress, A&O X 3, pleasant, answers questions appropriately - Head Head exam: Present: atraumatic, normocephalic - Eye Eye exam: Present: PERRL, conjuntiva pink, sclera anicteric Pupils: Present: PERRL - Neck Neck exam general surgery: Present: supple, trachea midline. Absent: lymphadenopathy - Respiratory Respiratory exam: Present: CTAB. Absent: accessory muscle use, rales, rhonchi, wheezes - Cardiovascular Cardiovascular exam: Present: irregular rhythm, +S1, +S2. Absent: diastolic murmur, gallop, rubs, systolic murmur - GI/Abdominal GI/Abdominal exam: Present: normal bowel sounds, soft, no peritoneal signs. Absent: distended, tenderness - Extremities Exam Extremities exam: Present: warm, radial pulses palpable and symmetrical. Absent : calf tenderness, cyanotic, pedal edema - Neurological Exam Neurological exam: Present: CN II-XII intact, oriented X3, no focal deficits. Absent: pronater drift, facial droop, speech deficit - Skin Skin exam: Present: dry, intact - Other Additional findings: Locke in place with hematuria in bag. Internal Medicine: Result - Labs CBC & Chem 7: 08/04/17 04:29 08/04/17 04:29 Labs: Short CBC 08/04/17 Range/Units 04:29 WBC 7.6 (4.3-11.1) K/mcL Hgb 9.2 L (12.9-16.9) g/dL Hct 28.5 L (37.5-50.1) % Plt Count 165 (140-400) K/mcL Neutrophils # 5.7 (1.6-8.9) K/mcL BMP 08/04/17 04:29 Sodium 135 L Potassium 4.4 Chloride 105 Carbon Dioxide 26 BUN 23 Creatinine 1.03 Glucose 144 H Calcium 9.3 - ABG Interpretation ABG results: PT/INR, D-dimer PT 16.3 Seconds (9.4-12.1) H 08/01/17 15:10 - Impressions Impressions Pelvis CT 08/03/17 16:49 IMPRESSION: Bladder is difficult to assess due to decompression and lack of intravenous contrast. Slight interval enlargement of visualized infrarenal abdominal aortic aneurysm. D/ / Jordan Farr MD / Jordan Farr MD Interpreting Provider: Jordan Farr MD Consult Discharge Plan - Plan Referrals: Mahendra Albert DO [Primary Care Provider] -
[2017-08-04] MEDS: Diltiazem CD (24hr) 240 MG CAPSULE PO SCH ×2 (10:13→10:19)
[2017-08-04] MEDS: Famotidine 20 MG TABLET PO SCH ×2 (10:13→21:11)
[2017-08-04] MEDS: Furosemide 20 MG TABLET PO SCH (10:13)
[2017-08-04] MEDS: Multivit/Ca/Min/Fe/FA 1 TAB TABLET PO SCH (10:13)
[2017-08-04] MEDS: Lisinopril 20 MG TABLET PO SCH ×2 (10:14→10:20)
[2017-08-04] MEDS: cefTRIAXone 1,000 MG in Water for inj. (sterile) 20 ML 10 ML IVP SCH (10:14)
--- NOTE | 2017-08-04 17:58 | Urology Progress Note ---
Date of Encounter: 08/04/17 Time of Encounter: 17:56 - Assessment and Plan (1) Hematuria Current Visit: Yes Status: Resolved Assessment and plan: although the original plan was to leave the cath for a few more days we elected to remove bc of significant discomfort and it appears hematuria stopped. will see if able to void overnight. will see pt in AM. Qualifiers: Hematuria type: gross Qualified Code(s): R31.0 - Gross hematuria Progress Note Narrative: increasing bladder spasms and pain from cath. hematuria resolved. Objective Initial Vital Signs Temp Pulse Resp BP Pulse Ox 98.3 F 62 20 99/65 96 08/01/17 14:26 08/01/17 14:26 08/01/17 14:26 08/01/17 14:26 08/01/17 14:26 - Additional Exam clear urine. no further clots irrigated. - Labs 08/04/17 04:29 08/04/17 04:29 Diabetes panel 08/04/17 Range/Units 04:29 Sodium 135 L (136-145) mEq/L Potassium 4.4 (3.5-5.1) mEq/L Chloride 105 (98-107) mEq/L Carbon Dioxide 26 (23-29) mEq/L BUN 23 (8-23) mg/dL Creatinine 1.03 (0.70-1.30) mg/dL Glucose 144 H (70-105) mg/dL Calcium 9.3 (8.6-10.3) mg/dL Calcium panel 08/04/17 Range/Units 04:29 Calcium 9.3 (8.6-10.3) mg/dL Pituitary panel 08/04/17 Range/Units 04:29 Sodium 135 L (136-145) mEq/L Potassium 4.4 (3.5-5.1) mEq/L Chloride 105 (98-107) mEq/L Carbon Dioxide 26 (23-29) mEq/L BUN 23 (8-23) mg/dL Creatinine 1.03 (0.70-1.30) mg/dL Glucose 144 H (70-105) mg/dL Calcium 9.3 (8.6-10.3) mg/dL Adrenal panel 08/04/17 Range/Units 04:29 Sodium 135 L (136-145) mEq/L Potassium 4.4 (3.5-5.1) mEq/L Chloride 105 (98-107) mEq/L Carbon Dioxide 26 (23-29) mEq/L BUN 23 (8-23) mg/dL Creatinine 1.03 (0.70-1.30) mg/dL Glucose 144 H (70-105) mg/dL Calcium 9.3 (8.6-10.3) mg/dL Consult Discharge Plan - Plan Referrals: Mahendra Albert DO [Primary Care Provider] -
--- NOTE | 2017-08-05 06:59 | Urology Progress Note ---
Date of Encounter: 08/05/17 Time of Encounter: 06:56 - Assessment and Plan (1) Hematuria Current Visit: Yes Status: Resolved Assessment and plan: ok for discharge per standpoint. needs followup within 4 weeks. will likely perform cystoscopy. Qualifiers: Hematuria type: gross Qualified Code(s): R31.0 - Gross hematuria Progress Note Narrative: pt urinating well without cath. no hematuria. Objective Initial Vital Signs Temp Pulse Resp BP Pulse Ox 98.3 F 62 20 99/65 96 08/01/17 14:26 08/01/17 14:26 08/01/17 14:26 08/01/17 14:26 08/01/17 14:26 - Additional Exam pt ambulating in hallway with clothes on. - Labs 08/04/17 04:29 08/04/17 04:29 Consult Discharge Plan - Plan Referrals: Mahendra Albert DO [Primary Care Provider] -
[2017-08-05 07:59] LABS: Basophils % 0.4 %; Eosinophils # 0.2 K/mcL (0.0-0.6); Eosinophils % 3.2 %; Hematocrit 28.1 % (37.5-50.1); Immature Granulocytes % 0.3 % (0-4); Lymphocytes # 1.1 K/mcL (0.6-4.6); Lymphocytes % 16.1 %; Mean Corpuscular Hemoglobin 30.5 pg (28.0-33.3); Mean Corpuscular Volume 95.3 fL (83.0-100.0); Mean Platelet Volume 9.9 fL (9.4-12.4); Monocytes # 0.7 K/mcL (0.0-1.3); Monocytes % 9.6 %; Neutrophils # 4.9 K/mcL (1.6-8.9); Platelet Count 170 K/mcL (140-400); Red Blood Count 2.95 M/mcL (4.19-5.50); Red Cell Distribution Width 15.6 % (11.5-14.5); Segmented Neutrophils % 70.4 %
[2017-08-05 08:28] VITALS: BP 115/73
--- NOTE | 2017-08-05 09:15 | Discharge Summary ---
- NOTES TO OUTPATIENT PROVIDER Notes to Outpatient Provider: Follow-up PCP in 2-3 days, address anticoagulation. Danny lbe held upon discharge. Follow-up Urology in 4 weeks as per Urologist recommendation. Orders not resulted at time of discharge: Pending orders 08/05/17 07:11 BMP [Basic Metabolic Panel] AM 0400 08/06/17 04:00 BMP [Basic Metabolic Panel] AM 0400 Complete Blood Count [HEME] AM 0400 Date of Encounter: 08/05/17 Time of Encounter: 09:13 - Discharge Diagnosis (1) Hematuria Priority: Primary Status: Resolved Qualifiers: Hematuria type: gross Qualified Code(s): R31.0 - Gross hematuria (2) Prostate cancer Priority: Secondary Status: Chronic (3) CAD (coronary artery disease) Priority: Secondary Status: Chronic Qualifiers: Coronary Disease-Associated Artery/Lesion type: [place] artery [place] vs. transplanted heart: [place] heart Associated angina: with unspecified angina Qualified Code(s): I25.119 - Atherosclerotic heart disease of [place] coronary artery with unspecified angina pectoris (4) Hypertension Priority: Secondary Status: Chronic Qualifiers: Hypertension type: essential hypertension Qualified Code(s): I10 - Essential (primary) hypertension (5) Aneurysm, ascending aorta Priority: Secondary Status: Chronic (6) PAF (paroxysmal atrial fibrillation) Priority: Secondary Status: Chronic (7) DVT prophylaxis Priority: Secondary Status: Acute Hospital course: Mr. Fair is a 76 year old male with a history of prostate cancer that was diagnosed on TURP status post radiation in 2016 who presented with episode of complete gross hematuria with clots associated with lower abdominal discomfort secondary to bladder distention. ultrasound performed in the emergency department revealed a possible clot within the bladder. urology was consulted and patient was admitted for further evaluation. Patient had Locke catheter placed in ED by Urology. Patient had hemodynamics and blood count monitored and was stable. Eliquis and aspirin was held on admission. Patient had manual irrigation of catheter which would produce clots and so needed further monitoring. 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 He had a follow-up CT that appeared that majority of clots were then irrigated from his bladder. Hematuria improved and Locke was removed and patient passed voiding trial. He was discharged home in stable condition. Agrees to hold Eliquis and discuss with primary care physician on weather or not to resume anticoagulation. - Time Spent with Patient Total time spent providing and/or coordinating discharge services: - Discharge Medications Home Medications: Lisinopril [Zestril] 40 mg PO DAILY 02/14/15 [History] Oxaprozin [Daypro] 600 mg PO BID PRN 02/14/15 [History] Multivit-Min/FA/Lycopen/Lutein [Men 50 Plus Multivitamin Tab] 1 tab PO DAILY [History] Atorvastatin Calcium [Lipitor] 20 mg PO HS 06/24/16 [History] Furosemide [Lasix] 40 mg PO DAILY 07/27/16 [History] Metoprolol [Lopressor] 50 mg PO BID 07/27/16 [History] Leuprolide Acetate [Lupron Depot] 22.5 mg IM [id number] 08/27/16 [History] Aspirin Enteric Coated [Aspirin EC] 81 mg PO DAILY 12/30/16 [History] Nitroglycerin [Nitrostat] 0.4 mg SL Q5M PRN 12/30/16 [History] dilTIAZem HCl [Diltiazem ER] 240 mg PO DAILY 12/30/16 [History] HYDROcodone/Acet 5/325 mg [[place] 5-325 mg] 1 tab PO Q6H PRN 02/10/17 [History] Allergies/Adverse Reactions: 3 Allergy/AdvReac Type Severity Reaction Status Date / Time Oxycodone [From Percocet] Allergy Vomiting Verified 08/01/17 14:26 Date of admission: 08/01/17 17:06 Primary care physician: Mahendra Albert Discharging clinician: Bora Elkins - Constitutional Vitals: Temp Pulse Resp BP Pulse Ox 97.6 F 73 17 115/73 99 08/05/17 08:27 08/05/17 08:27 08/05/17 08:27 08/05/17 08:27 08/05/17 07:44 General appearance: Present: cooperative, mild distress, A&O X 3, pleasant, answers questions appropriately - Head Head exam: Present: atraumatic, normocephalic - Eye Eye exam: Present: PERRL, conjuntiva pink, sclera anicteric Pupils: Present: PERRL - Neck Neck exam general surgery: Present: supple, trachea midline. Absent: lymphadenopathy - Respiratory Respiratory exam: Present: CTAB. Absent: accessory muscle use, rales, rhonchi, wheezes - Cardiovascular Cardiovascular exam: Present: irregular rhythm, +S1, +S2. Absent: diastolic murmur, gallop, rubs, systolic murmur - GI/Abdominal GI/Abdominal exam: Present: normal bowel sounds, soft, no peritoneal signs. Absent: distended, tenderness - Extremities Exam Extremities exam: Present: warm, radial pulses palpable and symmetrical. Absent : calf tenderness, cyanotic, pedal edema - Neurological Exam Neurological exam: Present: CN II-XII intact, oriented X3, no focal deficits. Absent: pronater drift, facial droop, speech deficit - Skin Skin exam: Present: dry, intact - Patient Status Disposition: Home, Self-Care Condition: Undetermined Functional capacity at discharge: independent ambulation Overall status at discharge: patient is back to baseline - Discharge Instructions Follow Up With: Mahendra Albert DO [Primary Care Provider] - - Diet and Activity Activity: increase activity as tolerated Diet: advance to your usual diet - VTE Documentation of Mechanical Device: Graduated compression elastic hosiery
[2017-08-05 10:03] LABS: BUN/Creatinine Ratio 23 (6-26); Blood Urea Nitrogen 24 mg/dL (8-23); Calcium 9.4 mg/dL (8.6-10.3); Carbon Dioxide 25 mEq/L (23-29); Chloride 104 mEq/L (98-107); Glucose 119 mg/dL (70-105); Osmolality,Calculated 283 (280-300); Potassium 4.6 mEq/L (3.5-5.1); Sodium 134 mEq/L (136-145); eGFR For African Americans > 60 (> 60); eGFR For Non-African Americans > 60 (> 60)
[2017-08-05] MEDS: Lisinopril 20 MG TABLET PO SCH (10:41)
[2017-08-05] MEDS: Multivit/Ca/Min/Fe/FA 1 TAB TABLET PO SCH (10:41)
[2017-08-05] MEDS: Diltiazem CD (24hr) 240 MG CAPSULE PO SCH (10:41)
[2017-08-05] MEDS: Furosemide 20 MG TABLET PO SCH (10:41)
[2017-08-05] MEDS: Famotidine 20 MG TABLET PO SCH (10:42)
[2017-08-05] MEDS: cefTRIAXone 1,000 MG in Water for inj. (sterile) 20 ML 10 ML IVP SCH (10:42)
== END 2017-08-05 11:05 | disposition home or self-care (01) ==
LOC: EMEROO 13:56 → 3ANU 13:56 → SUATTDRO 17:06 → 3ANU 17:42
PROVIDERS: ADMIT Internal Medicine Nephrology; ATTEND Student in an Organized Health Care Education/Training Program

== ENCOUNTER 2019-01-30 16:08 | Inpatient (IN) ==
[2019-01-30 18:15] LABS: Hematocrit 37.4 % (37.5-50.1); Hemoglobin 12.4 g/dL (12.9-16.9)
[2019-01-30 20:44] LABS: BUN/Creatinine Ratio 25 (6-26); Blood Urea Nitrogen 32 mg/dL (8-23); Calcium 9.9 mg/dL (8.6-10.3); Carbon Dioxide 23 mEq/L (23-29); Chloride 104 mEq/L (98-107); Glucose 117 mg/dL (70-105); Osmolality,Calculated 290 (280-300); Potassium 4.6 mEq/L (3.5-5.1); Sodium 136 mEq/L (136-145); eGFR For African Americans > 60 (> 60); eGFR For Non-African Americans 55 (> 60)
[2019-01-30 20:49] LABS: Basophils % 0.4 %; Eosinophils # 0.1 K/mcL (0.0-0.6); Eosinophils % 1.1 %; Immature Granulocytes % 1.6 % (0-4); Lymphocytes % 13.7 %; Mean Corpuscular HGB Conc 34.2 g/dL (31.6-35.5); Mean Corpuscular Hemoglobin 33.3 pg (28.0-33.3); Mean Corpuscular Volume 97.4 fL (83.0-100.0); Mean Platelet Volume 10.6 fL (9.4-12.4); Monocytes # 0.5 K/mcL (0.0-1.3); Monocytes % 6.9 %; Neutrophils # 5.3 K/mcL (1.6-8.9); Platelet Count 146 K/mcL (140-400); Segmented Neutrophils % 76.3 %
[2019-01-30] MEDS ORDERED: Naloxone 0.4 MG/ML INJ IVP PRN (22:11)
[2019-01-30] MEDS ORDERED: Ondansetron ODT 4 MG TAB.RAPDIS SL PRN (22:11)
[2019-01-30] MEDS ORDERED: 0.9 % Sodium Chloride 1,000 ML IVC SCH (22:15)
[2019-01-31] MEDS: Acetaminophen 325 MG TABLET PO PRN ×2 (02:50→21:45)
[2019-01-31 06:45] LABS: Basophils % 0.3 %; Eosinophils # 0.1 K/mcL (0.0-0.6); Eosinophils % 1.8 %; Hematocrit 34.6 % (37.5-50.1); Hemoglobin 11.6 g/dL (12.9-16.9); Immature Granulocytes % 0.2 % (0-4); Lymphocytes # 1.3 K/mcL (0.6-4.6); Lymphocytes % 20.4 %; Mean Corpuscular HGB Conc 33.5 g/dL (31.6-35.5); Mean Corpuscular Hemoglobin 33.8 pg (28.0-33.3); Mean Corpuscular Volume 100.9 fL (83.0-100.0); Mean Platelet Volume 10.7 fL (9.4-12.4); Monocytes # 0.6 K/mcL (0.0-1.3); Monocytes % 8.8 %; Neutrophils # 4.3 K/mcL (1.6-8.9); Platelet Count 133 K/mcL (140-400); Red Blood Count 3.43 M/mcL (4.19-5.50); Segmented Neutrophils % 68.5 %; White Blood Count 6.2 K/mcL (4.3-11.1)
[2019-01-31 06:47] LABS: INR 1.2; Prothrombin Time 13.2 Seconds (9.4-12.1)
[2019-01-31 07:08] LABS: Alanine Aminotransferase 15 Units/L (7-52); Albumin 3.6 g/dL (3.5-5.7); Albumin/Globulin Ratio 1.5 (1.1-2.2); Alkaline Phosphatase 51 Units/L (34-104); Aspartate Amino Transferase 15 Units/L (13-39); BUN/Creatinine Ratio 22 (6-26); Bilirubin,Total 0.4 mg/dL (0.3-1.0); Blood Urea Nitrogen 27 mg/dL (8-23); Calcium 9.2 mg/dL (8.6-10.3); Carbon Dioxide 24 mEq/L (23-29); Chloride 107 mEq/L (98-107); Chol/HDL Ratio 5.7 (0-4.9); Cholesterol 137 mg/dL (< 200); Globulin 2.4 g/dL (2.4-3.5); Glucose 111 mg/dL (70-105); HDL Cholesterol 24 mg/dL (40-59); LDL Cholesterol,Calculated 75 mg/dL (0-99); Magnesium 2.2 mg/dL (1.6-2.6); Osmolality,Calculated 294 (280-300); Phosphorous 2.8 mg/dL (2.7-4.5); Potassium 4.2 mEq/L (3.5-5.1); Sodium 139 mEq/L (136-145); Triglycerides 191 mg/dL (< 150); eGFR For African Americans > 60 (> 60); eGFR For Non-African Americans 57 (> 60)
[2019-01-31] MEDS ORDERED: Morphine Sulfate 2 MG/ML SYRINGE IVP ONE (09:57)
[2019-01-31] MEDS ORDERED: Nitroglycerin 0.4 MG TAB.SUBL SL PRN (11:39)
[2019-01-31 12:22] LABS: Hematocrit 33.8 % (37.5-50.1); Hemoglobin 11.3 g/dL (12.9-16.9)
[2019-01-31 18:24] LABS: Hematocrit 35.3 % (37.5-50.1); Hemoglobin 11.7 g/dL (12.9-16.9)
[2019-01-31] MEDS: Docusate Oral Soln 100 MG/10 ML UDC PO SCH (20:28)
[2019-02-01 01:09] LABS: Hematocrit 33.8 % (37.5-50.1); Hemoglobin 11.5 g/dL (12.9-16.9)
[2019-02-01] MEDS: Docusate Oral Soln 100 MG/10 ML UDC PO SCH (08:37)
[2019-02-01] MEDS ORDERED: Diltiazem CD (24hr) 240 MG CAPSULE PO SCH (09:00)
[2019-02-01] MEDS ORDERED: Lisinopril 20 MG TABLET PO SCH (09:00)
[2019-02-01] MEDS ORDERED: Furosemide 40 MG TABLET PO SCH (09:00)
[2019-02-01 11:28] VITALS: BP 135/79
== END 2019-02-01 15:54 | disposition home or self-care (01) | DRG 700 ==
LOC: 3BNU 16:08 → EMEROOARM 16:08 → 3BNU 21:51 → SUATTDRO 22:11
PROVIDERS: ADMIT Family Medicine; ATTEND Student in an Organized Health Care Education/Training Program